=== PATIENT | male | born 1960 | race Caucasian/White ===

== ENCOUNTER 2017-11-25 12:45 | Emergency (ER) | payer OTHER ==
[2017-11-25 12:53] VITALS: BP 135/75; PULSE 82; RESP 18; TEMP 98.5
[2017-11-25] MEDS ORDERED: DIPH,PERTUS(ACELL)TETVAC-LF 0.5 ML VIAL IM ONE (13:19)
[2017-11-25] MEDS ORDERED: HYDROcodone/APAP 5-325MG 1 EACH TAB PO STA (13:20)
[2017-11-25] MEDS ORDERED: LIDOCAINE 1% INJ 10MG/ML (20 ML MDV) SQ ONE (13:23)
--- NOTE | 2017-11-25 13:47 | XR ---
EXAMINATION TYPE: XR finger LT , 3 VIEWS DATE OF EXAM ORDERED: 11/25/2017 HISTORY: Pain. COMPARISON: None. FINDINGS: There is a soft tissue defect and bony defect in the distal aspect of the middle phalanx o f the left long finger. Several small fragments are present in the dorsal aspect adjacent to the PIP joint. IMPRESSION: COMPOUND, COMMINUTED FRACTURES OF THE MIDDLE PHALANX OF THE LEFT LONG FINGER. CODE B: INITIAL ENCOUNTER FOR OPEN FRACTURE TYPE I OR II.
[2017-11-25] MEDS ORDERED: ceFAZolin 1,000 MG VIAL IM STA (14:56)
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
== END 2017-11-25 15:20 | disposition home or self-care (01) ==
LOC: EC 12:45
DX: S62.623B Displaced fracture of middle phalanx of left middle finger, initial encounter for open fracture (principal); S61.213A Laceration without foreign body of left middle finger without damage to nail, initial encounter; F17.200 Nicotine dependence, unspecified, uncomplicated; Z23 Encounter for immunization; Z86.73 Personal history of transient ischemic attack (TIA), and cerebral infarction without residual deficits; W31.2XXA Contact with powered woodworking and forming machines, initial encounter
CPT/HCPCS: 73140; 90715; 99283; 12002; 96372; 90471; J0690; J2001

== ENCOUNTER → 2018-01-05 | Outpatient (CLI) | payer OTHER ==
--- NOTE | 2018-01-05 07:54 | CT ---
EXAMINATION TYPE: CT chest wo con DATE OF EXAM: 01/05/2018 COMPARISON: None HISTORY: COPD CT DLP: 162.[address] of the chest was performed with lung and mediastinal window settings submitted. The la ck of contrast limits evaluation of the vascular, mediastinal and parenchymal structures including th e upper abdomen. LUNGS: The lungs are clear and free of infiltrate. No atelectasis. No pulmonary nodule or mass is de tected. No pleural effusion. Mild upper lobe emphysematous changes noted. Scattered areas of pleural parenchymal scarring. Granuloma left lower lobe. MEDIASTINUM/ADDY: Thoracic aorta is of normal caliber with limited evaluation given lack of contrast . The heart is not enlarged. No evidence for mediastinal mass. No lymph nodes greater than 1cm. UPPER ABDOMEN: Hypoattenuating lesion upper pole left kidney measuring 2.2 cm. OTHER: Splenic granulomas noted. IMPRESSION: 1. Upper lobe emphysematous changes. 2. Probable cyst within the left kidney can be confirmed with ultrasound. 3. Remote granulomatous disease.
== END | disposition home or self-care (01) ==
LOC: RADCTMAIN 06:57
PROVIDERS: ATTEND Internal Medicine Critical Care Medicine
DX: J43.9 Emphysema, unspecified (principal)
CPT/HCPCS: 71250

== ENCOUNTER → 2019-04-29 | Outpatient (CLI) | payer OTHER ==
--- NOTE | 2019-04-29 16:36 | XR ---
EXAMINATION TYPE: XR chest 2V DATE OF EXAM: 04/29/2019 COMPARISON: CT chest 01/05/2018 HISTORY: Short of breath, lung nodules TECHNIQUE: Frontal and lateral views of the chest are obtained. FINDINGS: There is no focal air space opacity, pleural effusion, or pneumothorax seen. The cardiac silhouette size is within normal limits. The osseous structures are intact. Prominent lung volumes consistent with underlying emphysema. Calcified granuloma again noted in the left lower lobe as on pr ior CT. IMPRESSION: No acute cardiopulmonary process.
== END ==
LOC: RADXRMAIN 12:34
PROVIDERS: ATTEND Internal Medicine
DX: R06.02 Shortness of breath (principal)
CPT/HCPCS: 71046

== ENCOUNTER → 2019-05-28 | Outpatient (CLI) | payer OTHER ==
--- NOTE | 2019-05-28 16:50 | CT ---
EXAMINATION TYPE: CT chest w con DATE OF EXAM: 05/28/2019 COMPARISON: Prior chest CT 01/05/2018 HISTORY: Lung nodule CT DLP: 194.1 mGycm Automated exposure control for dose reduction was used. CONTRAST: CT scan of the chest is performed with IV Contrast, patient injected with 100 mL of Isovue 300. FINDINGS: LUNGS: The lungs are grossly clear, there is no concerning parenchymal mass or nodule identified. Th ere are bilateral emphysematous changes especially noted in the upper lobes. Calcified pulmonary nodu le present in the left lower lobe is again noted. There is no pleural effusion or pneumothorax seen. The tracheobronchial tree is patent. MEDIASTINUM: There are no greater than 1 cm hilar or mediastinal lymph nodes. No pericardial effusi on is seen. Calcified left hilar nodes. There are coronary artery calcifications present. AORTA: No additional significant abnormality is seen. OTHER: Scattered calcifications within the spleen. Liver shows low attenuation possibly due to hepat ic steatosis. IMPRESSION: Stable emphysema, old granulomatous disease.
== END | disposition home or self-care (01) ==
LOC: RADCTMAIN 15:41
PROVIDERS: ATTEND Internal Medicine Critical Care Medicine
DX: J43.9 Emphysema, unspecified (principal)
CPT/HCPCS: 71260; Q9967

== ENCOUNTER → 2021-03-16 | Outpatient (CLI) | payer OTHER ==
--- NOTE | 2021-03-16 12:41 | XR ---
EXAMINATION TYPE: XR cervical spine comp DATE OF EXAM: 03/16/2021 COMPARISON: NONE HISTORY: Neck pain TECHNIQUE: Four views are submitted. FINDINGS: The odontoid is intact. There are no compression deformities. The prevertebral soft tissue structur es are within normal limits. There is moderate to severe degenerative disc disease C3-4, C4-5, C5-6 and C6-C7 with anterior hypertrophic spurring. Soft tissue calcifications are noted which likely rela gama atherosclerotic change of the carotid arteries. Multilevel facet arthropathy. IMPRESSION: 1. Multilevel moderate to severe degenerative disc disease and facet arthropathy. Recommend follow-up MRI.
== END | disposition home or self-care (01) ==
LOC: RADXRMAIN 11:59
PROVIDERS: ATTEND Internal Medicine
DX: M50.323 Other cervical disc degeneration at C6-C7 level (principal); M47.812 Spondylosis without myelopathy or radiculopathy, cervical region
CPT/HCPCS: 72050

== ENCOUNTER 2021-04-30 11:29 | Emergency (ER) | payer OTHER ==
[2021-04-30 11:32] VITALS: BP 147/81; PULSE 83; RESP 20; TEMP 98
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
== END 2021-04-30 12:43 | disposition home or self-care (01) ==
LOC: EC 11:29
DX: J06.9 Acute upper respiratory infection, unspecified (principal); F17.200 Nicotine dependence, unspecified, uncomplicated; Z86.73 Personal history of transient ischemic attack (TIA), and cerebral infarction without residual deficits; Z72.89 Other problems related to lifestyle
CPT/HCPCS: 87635; 99283

== ENCOUNTER 2021-06-08 09:44 | Day surgery (SDC) | payer OTHER ==
[2021-04-30 14:26] VITALS: BMI 22.4
[~2021-06-08 09:44] MED LIST: LACTATED RINGERS 1,000 ML IV SCH; LIDOCAINE 1% (10MG/ML) FOR IV START INTRADERMA PRN
[2021-06-08 10:29] VITALS: TEMP 97.8
[2021-06-08] MEDS ORDERED: PROPOFOL 10 MG/ML 20 ML VIAL IV ONE (11:08)
--- NOTE | 2021-06-08 11:33 | P.PCN ---
Date of Procedure: 06/08/21 Procedure(s) Performed: BRIEF HISTORY: Patient is a 60-year-old pleasant white male scheduled for an elective colonoscopy as a part of screening for colorectal neoplasia. Last colonoscopy was 7 years ago. PROCEDURE PERFORMED: Colonoscopy with snare polypectomy. PREOPERATIVE DIAGNOSIS:.Screening for colon cancer IV sedation per Anesthesia. PROCEDURE: After informed consent was obtained, the patient, was brought into the endoscopy unit. IV sedation was administered by Anesthesia under continuous monitoring. Digital rectal examination was normal. Initially the Olympus CF-160 flexible video colonoscope was then inserted in the rectum, gradually advanced into the cecum without any difficulty. Careful examination was performed as the scope was gradually being withdrawn. Ileocecal valve and the appendiceal orifice were visualized and appeared normal. Prep was excellent. Mucosa of the cecum, a ppeared normal. In the ascending colon there were 3 polyps measuring 7 mm, 8 mm and 3 mm REMOVED by snare polypectomy. Rest of the ascending colon, transverse colon, descending colon, appeared normal. In the sigmoid colon there was a 1 cm polyp removed by snare polypectomy and in the rectum there was a 5 mm polyp removed by snare polypectomy. Rest of the sigmoid colon, and rectum appeared normal. Retroflexion was performed in the rectum and no lesions were seen. The patient tolerated the procedure well. IMPRESSION: 3 mm 2 and 7 mm, 8 mm ascending colon polyp status post polypectomy 1 cm sigmoid; polyp status post snare polypectomy 5 mm rectal polyp status post snare polypectomy RECOMMENDATIONS: Findings of this examination were discussed with the patient [as well as his family. He was advised to follow with the biopsy results. If the biopsy results can have a repeat colonoscopy in 3 years.
[2021-06-08 11:45] VITALS: RESP 16
[2021-06-08 11:57] VITALS: BP 121/78; PULSE 84
== END 2021-06-08 12:22 | disposition home or self-care (01) ==
LOC: ORWHC2ENDO 09:44
PROVIDERS: ATTEND Internal Medicine Gastroenterology
DX: Z12.11 Encounter for screening for malignant neoplasm of colon (principal); D12.2 Benign neoplasm of ascending colon; D12.5 Benign neoplasm of sigmoid colon; D12.8 Benign neoplasm of rectum; J44.9 Chronic obstructive pulmonary disease, unspecified; F17.200 Nicotine dependence, unspecified, uncomplicated; Z86.73 Personal history of transient ischemic attack (TIA), and cerebral infarction without residual deficits; M19.90 Unspecified osteoarthritis, unspecified site; Z79.899 Other long term (current) drug therapy; Z97.2 Presence of dental prosthetic device (complete) (partial)
CPT/HCPCS: 88305; 45385; J2704

== ENCOUNTER → 2021-10-15 | Outpatient (CLI) | payer OTHER ==
--- NOTE | 2021-10-15 12:17 | CT ---
EXAMINATION TYPE: CT chest w con DATE OF EXAM: 10/15/2021 COMPARISON: 05/28/2019 HISTORY: 61-year-old male shortness of breath, R91.8, Previous abnormal exam. COREY TECHNIQUE: Contiguous axial scanning of the chest after the administration of 70 ML mL of Isovue 300. Coronal/sagittal reconstructions performed. CT DLP: 278.2mGycm. Automatic exposure control utilized for a dose reduction. FINDINGS: Heart normal size with trace pericardial effusion. Three-vessel coronary artery calcifications are pr esent. Mild atherosclerotic arch calcifications with conventional branching anatomy. There is been the interval development of a large right hilar/infrahilar mass, mostly located within the right lower lobe but extending anteriorly across the major fissure. This encases the distal right main pulmonary artery as well as the lobar and proximal segmental branches. There is also encasement and narrowing of the right inferior pulmonic vein and encasement of the right lower lobe bronchi as well as the right middle lobe and proximal segmental bronchi. Right hilar/infrahilar mass measures up to 8.1 cm, axial image 37. Within the right lower lobe, extends posteriorly to the posterior pleura and we are unable to differe ntiate mass from consolidation and atelectasis. Heterogeneous areas of fluid and air are present suggesting some internal necrosis. Surrounding groundglass opacity within the right lower lobe and some nodularity, likely post obstruct ranjan changes. There is a small right pleural effusion. Contiguous right hilar adenopathy measuring 3.9 cm. Right suprahilar adenopathy measuring 3.9 cm. Subcarinal adenopathy measuring 2.4 cm. Lower right paratracheal nodes measuring up to 1.6 cm. Left hilar lymph node measuring 1.5 cm is new. Some calcified lymph nodes left hilum compatible with prior granulomatous disease. Cavitary lesion posterior left upper lobe measuring 2.8 cm with some internal soft tissue nodularity measuring 1.2 cm. Adjacent 8 mm satellite nodule, axial and 25. New 1.2 cm oval nodule right middle lobe. Background COPD with moderate emphysema. Multiple calcified granulomas within the spleen. Benign 1.6 cm cortical cyst left kidney. Bones: No osseous destructive process seen. IMPRESSION: 1. New right hilar/infrahilar mass measuring at least 8.1 cm encasing multiple right hilar structures and containing areas of central necrosis. Abnormal opacity extends inferiorly and posteriorly to the posterior pleura of the right lower lobe and we are unable to differentiate postobstructive airspace disease/atelectasis from the mass. Associated small right pleural effusion. 2. Right hilar lymphadenopathy measuring up to 3.9 cm. Additional subcarinal and lower right paratrac heal lymphadenopathy. 1.2 cm right middle lobe nodule, possibly a metastatic nodule. 3. Cavitary lesion measuring 2.8 cm posterior left lower lobe is suspicious as well, possible synchro nous primary. 8 mm satellite nodule and 1.5 cm left hilar lymph node.
== END | disposition home or self-care (01) ==
LOC: RADCTMAIN 08:10
PROVIDERS: ATTEND Internal Medicine
DX: R91.8 Other nonspecific abnormal finding of lung field (principal); J98.11 Atelectasis
CPT/HCPCS: 71260; Q9967

== ENCOUNTER 2021-11-04 12:44 | Day surgery (SDC) | payer OTHER ==
[2021-11-03 13:02] VITALS: BMI 22.1
[~2021-11-04 12:44] MED LIST changes: +ALBUTEROL NEB (CONC) 2.5 MG/0.5 ML INHALATION ONE; -LACTATED RINGERS 1,000 ML IV SCH; -LIDOCAINE 1% (10MG/ML) FOR IV START INTRADERMA PRN; +LIDOCAINE 2% (PF) 20 MG/ML 5 ML VIAL INHALATION ONE; +LIDOCAINE VISCOUS 300 MG/15 ML CUP MUCOUS MEM ONE; +SODIUM CHLORIDE 0.9% 1,000 ML IV SCH
[2021-11-04] MEDS ORDERED: ONDANSETRON 4 MG/2 ML VIAL ONE (13:12)
[2021-11-04] MEDS ORDERED: DEXAMETHASONE SOD PHOSPHATE 4 MG/ML 1 ML VIAL IVP ONE (13:18)
[2021-11-04] MEDS ORDERED: LACTATED RINGERS 1,000 ML IV ONE (13:25)
[2021-11-04] MEDS ORDERED: LIDOCAINE 4% LTA KIT (4 ML) TOPICAL ONE (14:12)
[2021-11-04] MEDS ORDERED: MIDAZOLAM 2 MG/2 ML VIAL ONE (14:12)
[2021-11-04] MEDS ORDERED: PROPOFOL 10 MG/ML 20 ML VIAL IV ONE (14:12)
[2021-11-04] MEDS ORDERED: GLYCOPYRROLATE 0.2 MG/ML 2 ML VIAL ONE (14:12)
[2021-11-04] MEDS ORDERED: fentaNYL (PF) 50 MCG/ML 2 ML AMP ONE (14:12)
[2021-11-04] MEDS ORDERED: SUCCINYLCHOLINE CHLORIDE 200 MG/10 ML VIAL IV ONE (14:12)
[2021-11-04] MEDS ORDERED: LIDOCAINE 2% INJ 20 MG/ML (2 ML VIAL) ONE (14:12)
[2021-11-04] MEDS ORDERED: NEOSTIGMINE 1 MG/ML 10 ML VIAL ONE (14:12)
--- NOTE | 2021-11-04 15:13 | CT ---
EXAMINATION TYPE: CT Chest miracle Carroll Protocol DATE OF EXAM: 11/04/2021 COMPARISON: 10/15/2021 HISTORY: Pulmonary nodules/mass. CT DLP: 617 mGycm, Automated exposure control for dose reduction was used. CONTRAST: Performed injected with 0 mL of Isovue 300. TECHNIQUE: Axial images were obtained at 5 mm thick sections. Reconstructed images are reviewed on [employer] computer in the coronal plane. FINDINGS: Portion of the thyroid visualized is normal. There appears to be a cavitary lesion in the posterior left upper lung field. Couple of small nodules within the periphery of the superior segment right lower lobe. A large masses in the as ago esophageal recess and medial right lower lobe. Infiltrate or consolidation is peripher al to the mass along the posterior aspect. There is narrowing of the right lower lobe bronchus Small right pleural effusion is present. A lymph node may be anterior to the distal esophagus. May be an enlarged subcarinal lymph node. Multiple small pretracheal lymph nodes are present. The as cending aorta diameter at the level of the main pulmonary artery is 3.2 cm. The main pulmonary arter y diameter at the bifurcation is 2.[address] sections are obtained through the upper abdomen. Abdomen is essentially unremarkable. IMPRESSIONS: 1. CT performed for navigation assistance. 2. Right lower lobe medial lung mass, small right pleural effusion. Some peripheral consolidation is present posteriorly. 3. Possible large subcarinal lymph node.
[2021-11-04] MEDS ORDERED: SODIUM CHLORIDE 0.9% 500 ML 500 ML IV ONE (15:22)
--- NOTE | 2021-11-04 15:24 | P.PCN ---
Date of Procedure: 11/04/21 Operative Findings: Date of Procedure: 11/04/21 Operative Findings: Preoperative Diagnosis: 1 right upper lobe mass 2 mediastinal lymphadenopathy, precarinal Postoperative Diagnosis: 1 right lower lobe mass, 2 mediastinal lymphadenopathy Procedure(s) Performed: 1 flexible bronchoscopy, airway inspection 2 endoscopic ultrasound (EBUS) 3 transbronchial needle aspirate of station of 7 and 10 R lymph nodes 4 Navigation bronchoscopy and TBBX of the RLL mass and BAL of the RLL Surgeon: Luna Blanchard MD Continuing Education Specialist #1: Jazmin Lucia NP Continuing Education Specialist #2: Sundar Veloz MD Estimated Blood Loss (ml): 0 Pathology: Transbronchial needle aspirate of 7 and 10 R lymph nodes, transbronchial biopsies of the RLL mass and BAL of the RLL Condition: stable Disposition: same day Operative Findings: The patient had a preoperative computed tomography scan of the chest using the Veran protocol. The CAT scan images were reviewed. The right lower lobe opacity was identified it was mapped appropriately. The CAT scan images are uploaded into a USB and then into the [employer] tower. After obtaining the consent the patient was taken to the OR suite he was intubated and put on MV by anesthesia then the scope was advanced to the ET tube until the Trachea was seen and it was normal and then the elisha appears normal then the scope advanced to the left main and ANNE LB1-LB3 were seen and no endobronchial lesions were seen then the scope advanced to the lingula and the LB4 and LB5 were seen and no endobronchial lesions were seen the scope retracted and advanced to the left lower lobes LB6 to LB12 were seen one by one and no endobronchial lesions, then the scope was retracted back to the elisha and advanced to the Right main and RUL RB1 and RB2 and RB3 were seen one by one and no endobronchial lesions were seen the scope then retracted and advanced to the BI and immediately a is a component of extrinsic compression was noted in the distal bronchus intermedius with significant narrowing of the airway. The bifurcation right middle lobe with a right lower lobe was noted. The bronchoscope was moved to the right middle lobe and the RML RB4 and RB5 were seen and no endobronchial lesions were seen then it was retracted and advanced to the RLL and right lower lobe bronchus was anatomically distorted. The orifice of a superior segment was significantly narrowed. The orifice of the lateral segments were irregular and narrowed and I was able to identify the including the medial basilar, anterior, lateral and posterior segments. Note that the airways are quite abnormal and there was significant amount of extrinsic compression and possibly some endobronchial tumor involvement. Most of the abdominal distention was at the level of the superior segment of the right lower lobe. Then EBUS was used and the lymph nodes were examined. Direct measurement of the mediastinal lymph nodes reviewed and the patient has a large subcarinal lymph node station 7 measuring 1.8 x 1.3 cm in size. There was another large lymph node in the level of station 10 R measuring 2.2 x 1.55.. On the direct EBUS guidance, transbronchial needle aspirate of the station 7 and station 10 R lymph node was done and a total of 5 passes were obtained and the samples were evaluated by pathology. Rest of the mediastinal evaluation using the EBUS revealed no significant lymphadenopathy and all of the lymph nodes were identified less than 5 mm in size. Following that, the EBUS bronchoscope WAS COMPLETED AND THE BRONCHOSCOPE WAS REMOVED. Navigation bronchoscopy was performed. The main elisha and the secondary elisha on the left were used as the reference points and appropriate calibration was done. Following that, using a navigation guidance , the bronchoscope was advanced to the right lowe lobe suprior and posterior segment and various transbronchial biopsies were obtained. Note that the procedure itself was difficult knowing that there was significant amount of anatomic distortion of the airways were essentially narrowed and that essentially prevented advancement of the forceps to reach the distal areas of the tumor. Multiple biopsies were obtained using this. In the posterior segment of the right lower lobe. Minimal amount of endobronchial lesion bleeding was encountered that subsided without any intervention. Therapeutic airway suctioning was done. The bronchioloalveolar lavage of the right lower lobe was also done with a total of an assistive fluid was infused and 25 mL was aspirated. The fluid was sent for cytology. Bronchoscope was removed. Patient was extubated and transfered to recovery in stable condition. Chest x-rays to follow. If clinically stable, the patient will be discharged home once cleared by anesthesia.
[2021-11-04 15:40] VITALS: TEMP 97
--- NOTE | 2021-11-04 15:48 | XR ---
EXAMINATION TYPE: XR chest 1V DATE OF EXAM: 11/04/2021 COMPARISON: 08/26/2021 HISTORY: Post biopsy TECHNIQUE: Single frontal view of the chest is obtained. FINDINGS: Lobulated area of consolidation along the right heart border is seen. There is a coarsened interstitium with underlying COPD. Tiny right pleural effusion. No sizable pneumothorax. Heart size normal. Tiny granuloma left upper lobe suspected. IMPRESSION: 1. COPD with chronic interstitial lung disease and loculated area of consolidation or mass along the right heart border. 2. No sizable pneumothorax.
[2021-11-04 16:25] VITALS: RESP 20
[2021-11-04 16:46] VITALS: BP 109/65; PULSE 68
[2021-11-04 23:51] LABS: Appearance,BF Bloody
== END 2021-11-04 17:05 | disposition home or self-care (01) ==
LOC: ORWHC2ENDO 12:44
PROVIDERS: ATTEND Internal Medicine Critical Care Medicine
DX: C34.31 Malignant neoplasm of lower lobe, right bronchus or lung (principal); R59.0 Localized enlarged lymph nodes; J90 Pleural effusion, not elsewhere classified; J43.9 Emphysema, unspecified; E78.2 Mixed hyperlipidemia; I10 Essential (primary) hypertension; I73.9 Peripheral vascular disease, unspecified; Z82.49 Family history of ischemic heart disease and other diseases of the circulatory system; Z86.73 Personal history of transient ischemic attack (TIA), and cerebral infarction without residual deficits; F17.200 Nicotine dependence, unspecified, uncomplicated; Z79.899 Other long term (current) drug therapy
CPT/HCPCS: 87798 ×3; 87496; 87498; 87529; 88108; 88305; 88173; 89050; 88342; 87252; 87502; 87634; 88341; 87070; 87205; 87116; 87102; 87206; 71045; 71250; 31629; 31625; 31624; 31627; 31652; J2250; J0330; J1100; J2710; J2405; J3010; J2704; J2001

== ENCOUNTER 2021-11-06 09:18 | Emergency (ER) | payer OTHER ==
[2021-11-06 09:23] VITALS: RESP 18
[2021-11-06] MEDS ORDERED: SODIUM CHLORIDE 0.9% 1,000 ML IV STA (09:48)
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
[2021-11-06 10:23] LABS: Basophils # (A) 0.1 k/uL (0-0.2); Basophils % (A) 1 %; Eosinophils # (A) 0.3 k/uL (0-0.7); Eosinophils % (A) 2 %; HCT 39.4 % (39.0-53.0); HGB 12.5 gm/dL (13.0-17.5); Lymphocytes % (A) 15 %; MCH 28.3 pg (25.0-35.0); MCHC 31.8 g/dL (31.0-37.0); Mean Platelet Volume 8.7; Monocytes # (A) 0.8 k/uL (0-1.0); Monocytes % (A) 6 %; Neutrophils # (A) 10.4 k/uL (1.3-7.7); Neutrophils % (A) 76 %; Platelet Count 556 k/uL (150-450); RBC 4.43 m/uL (4.30-5.90); RDW 13.9 % (11.5-15.5); WBC 13.6 k/uL (3.8-10.6)
[2021-11-06 10:24] LABS: African American GFR (CKD) >90 (>60 ml/min/1.73 sqM); Anion Gap 10 mmol/L; Blood Urea Nitrogen 15 mg/dL (9-20); Calcium 9.3 mg/dL (8.4-10.2); Carbon Dioxide 25 mmol/L (22-30); Chloride 99 mmol/L (98-107); Creatine Kinase 54 U/L (55-170); Glucose 100 mg/dL (74-99); Non-African American GFR(CKD) 78 (>60 ml/min/1.73 sqM); Potassium 4.9 mmol/L (3.5-5.1); Sodium 134 mmol/L (137-145)
[2021-11-06 11:50] VITALS: BP 126/64; PULSE 74; TEMP 98.4
== END 2021-11-06 11:52 | disposition home or self-care (01) ==
LOC: EC 09:18
DX: M79.10 Myalgia, unspecified site (principal); Z20.822 Contact with and (suspected) exposure to COVID-19; Z87.891 Personal history of nicotine dependence
CPT/HCPCS: 36415; 80048; 82550; 85025; 87636; 93005; 96360; 99283

== ENCOUNTER → 2021-11-18 | Outpatient (CLI) | payer OTHER ==
--- NOTE | 2021-11-19 05:47 | MR ---
EXAMINATION TYPE: MR brain wo/w con DATE OF EXAM: 11/18/2021 COMPARISON: None HISTORY: Lung cancer, evaluate for metastatic disease. CONTRAST: Standard multiplanar, multisequence MRI departmental protocol images were obtained without contrast a nd with 6 mL intravenous Gadavist gadolinium contrast. Diffusion images show no evidence of an acute infarct. There is cerebral cortical atrophy. There is n o mass effect nor midline shift. No evidence of intracranial hemorrhage. There are numerous foci of i ncreased signal in the periventricular white matter that measure up to 1 cm. Total numbers more than 30. There is some coalescent increased signal around the frontal horn left lateral ventricle. The bra instem is intact. Cerebellum is intact. There is thinning of the corpus callosum. Sella turcica is in tact. The precontrast images show no pathologic enhancement. There is normal enhancement of the venous sinu ses. Meningeal enhancement appears normal. IMPRESSION: There is cerebral atrophy and extensive white matter changes likely related to microvascular ischemia . Demyelinating disease also possible. No evidence of intracranial metastatic disease.
== END | disposition home or self-care (01) ==
LOC: RADMRIMAIN 18:54
PROVIDERS: ATTEND Internal Medicine
DX: C34.31 Malignant neoplasm of lower lobe, right bronchus or lung (principal); G31.9 Degenerative disease of nervous system, unspecified
CPT/HCPCS: 70553; A9585

== ENCOUNTER → 2021-11-19 | Outpatient (CLI) | payer OTHER ==
--- NOTE | 2021-11-21 13:10 | PE ---
EXAMINATION TYPE: PET CT fusion skull to thigh DATE OF EXAM: 11/19/2021 CLINICAL INDICATION:Male, 61 years old with history of R91.8 lung mass; TECHNIQUE: Following the intravenous administration of 11.73 mCi of F-18 FDG, whole body images are performed from the skull base to the midthigh. Images are reviewed on the computer in the coronal, axial, and sagittal planes. Reconstructed rotating images are created on independent workstation and reviewed on the computer. A non-contrast CT is performed in conjunction with the PET scan. Glucose level 116 mg/dL COMPARISON: CT 10/27/2021, PET/CT None, FINDINGS: Mediastinal SUV maximum is 1.5. Hepatic parenchyma SUV maximum is 2.1. SKULL BASE AND NECK: No suspicious FDG activity. CHEST, MEDIASTINUM, AND HILAR REGION: Areas of increased FDG activity examples: * Right pulmonary hilum maximum SUV 8.4 measurements are slightly difficult given noncontrast techni que measuring 2.8 x 2.5 cm. * Subcarinal lymph node max SUV 8.9, measuring 2.4 x 2.0 cm. * Left inferior pulmonary hilum SUV 4.5, measuring 8 mm in short axis. * Left upper lobe pulmonary nodule with cavitation along part of the solid portion measuring 11 mm M ax SUV 4.3. * Right lower lobe conglomerate consolidation which is difficult to evaluate exact mass dimensions g iven lack of IV contrast with max SUV 14.0 of the lower lobe. * Left supraclavicular lymph node max SUV 5.0 measuring 9 mm in short axis. LEFT UPPER EXTREMITY: Focus of radiotracer up take along the arm near the subcutaneous tissues max SUV 5.9 ABDOMEN AND PELVIS: Upper abdominal lymph nodes with increased FDG activity including: * Just anterior to the aorta under the diaphragm with Max SUV 6.3 measuring 13 mm * Posterior to the body of the pancreas max SUV 7.2 measuring 11 mm. Indeterminate Focus of increased FDG uptake just anterior spine at L3 max SUV 3.0. A portacaval lymph node is present but does not demonstrate increased FDG activity measuring 11 mm an d Max SUV 2.0. OSSEOUS STRUCTURES: Focus of increased activity within the L5 vertebral body superior endplate with m ax SUV 6.9. OTHER CT: Atherosclerosis at the carotid bifurcations. There is coronary artery atherosclerosis. Scat tered calcified granulomas in the spleen. Left renal cyst. Atherosclerosis of the arterial vasculatur e. Mild multilevel disc degeneration changes throughout the spine. IMPRESSION: 1. Findings of a right lower lobe mass with metastatic disease to the mediastinum, left supraclavic ular lymph node as well as lymph nodes in the upper abdomen. 2. Indeterminate focus within the L5 vertebral body along the inferior endplate and anterior to the L3 vertebral body. These may be on a degenerative basis. Attention on follow-up imaging. 3. Left upper extremity focus of FDG uptake uptake along the anterior arm, this may be secondary to injection, correlate with left arm skin examination an history of injection.
== END | disposition home or self-care (01) ==
LOC: RADXRMAIN 07:54
PROVIDERS: ATTEND Internal Medicine Critical Care Medicine
DX: C38.3 Malignant neoplasm of mediastinum, part unspecified (principal); R91.8 Other nonspecific abnormal finding of lung field
CPT/HCPCS: 78815; A9552

== ENCOUNTER 2021-12-18 20:46 | Emergency (ER) | payer OTHER ==
[2021-12-18 20:58] VITALS: BP 119/84; PULSE 107; RESP 22; TEMP 97.9
[2021-12-18] MEDS ORDERED: MAG HYDROX/AL HYDROX/SIMETH 30 ML, HYOSCYAMINE ELIXIR 10 ML, LIDOCAINE VISCOUS 2% 10 ML PO STA ×3 (22:54)
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
[2021-12-18] MEDS ORDERED: SODIUM CHLORIDE 0.9% 1,000 ML IV STA (23:45)
[2021-12-19 00:50] LABS: Basophils # (A) 0.1 k/uL (0-0.2); Basophils % (A) 1 %; Eosinophils # (A) 0.2 k/uL (0-0.7); Eosinophils % (A) 2 %; HCT 41.9 % (39.0-53.0); HGB 13.2 gm/dL (13.0-17.5); Lymphocytes # (A) 1.1 k/uL (1.0-4.8); Lymphocytes % (A) 11 %; MCH 27.8 pg (25.0-35.0); MCHC 31.5 g/dL (31.0-37.0); MCV 88.4 fL (80.0-100.0); Mean Platelet Volume 7.3; Monocytes # (A) 0.6 k/uL (0-1.0); Monocytes % (A) 5 %; Neutrophils # (A) 8.2 k/uL (1.3-7.7); Neutrophils % (A) 79 %; Platelet Count 511 k/uL (150-450); RBC 4.75 m/uL (4.30-5.90); RDW 15.5 % (11.5-15.5); WBC 10.3 k/uL (3.8-10.6)
[2021-12-19 01:07] LABS: African American GFR (CKD) >90 (>60 ml/min/1.73 sqM); Anion Gap 13 mmol/L; Blood Urea Nitrogen 18 mg/dL (9-20); Calcium 9.8 mg/dL (8.4-10.2); Carbon Dioxide 23 mmol/L (22-30); Chloride 97 mmol/L (98-107); Glucose 98 mg/dL (74-99); Non-African American GFR(CKD) >90 (>60 ml/min/1.73 sqM); Potassium 4.5 mmol/L (3.5-5.1); Sodium 133 mmol/L (137-145)
[2021-12-19 01:11] LABS: Appearance,Urine Cloudy (Clear); Bacteria,Urine Rare /hpf; Bilirubin,Urine Negative (Negative); Blood,Urine Negative (Negative); Color,Urine Yellow; Glucose,Urine (UA) Negative (Negative); Ketones,Urine 1+ (Negative); Leukocyte Esterase,Urine Negative (Negative); Mucus,Urine Many /hpf; Nitrite,Urine Negative (Negative); PH, Urine 5.5 (5.0-8.0); Protein,Urine 1+ (Negative); RBC,Urine 3 /hpf (0-5); Specific Gravity,Urine 1.027 (1.001-1.035); Squamous Epithelial Cell,Urine <1 /hpf (0-4); WBC,Urine 6 /hpf (0-5)
== END 2021-12-19 02:56 | disposition home or self-care (01) ==
LOC: EC 20:46
DX: K20.90 Esophagitis, unspecified without bleeding (principal); Z86.73 Personal history of transient ischemic attack (TIA), and cerebral infarction without residual deficits; F17.200 Nicotine dependence, unspecified, uncomplicated
CPT/HCPCS: 36415; 80048; 81001; 83735; 85025; 96360; 96361; 99283

== ENCOUNTER → 2022-02-07 | Outpatient (CLI) | payer OTHER | END | disposition home or self-care (01) | LOC: RADMRIMAIN 19:55 | PROVIDERS: ATTEND Internal Medicine | DX: Z53.9 Procedure and treatment not carried out, unspecified reason (principal) ==

== ENCOUNTER 2022-03-08 14:35 | Emergency (ER) | payer OTHER ==
[2022-03-08] MEDS ORDERED: SODIUM CHLORIDE 0.9% 500 ML 500 ML IV STA (15:40)
[2022-03-08] MEDS ORDERED: MORPHINE SULFATE 4 MG/ML SYRINGE IV STA (15:40)
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
[2022-03-08 16:48] LABS: Anisocytosis Slight; Basophils % (A) 0 %; Eosinophils % (A) 1 %; HCT 38.7 % (39.0-53.0); HGB 13.3 gm/dL (13.0-17.5); Lymphocytes # (A) 0.6 k/uL (1.0-4.8); Lymphocytes % (A) 12 %; MCH 30.6 pg (25.0-35.0); MCHC 34.4 g/dL (31.0-37.0); Mean Platelet Volume 8.6; Monocytes # (A) 0.4 k/uL (0-1.0); Monocytes % (A) 8 %; Neutrophils # (A) 3.7 k/uL (1.3-7.7); Neutrophils % (A) 75 %; Platelet Count 151 k/uL (150-450); RBC 4.35 m/uL (4.30-5.90); RDW 16.5 % (11.5-15.5); WBC 4.9 k/uL (3.8-10.6)
[2022-03-08 16:58] LABS: ALT 15 U/L (4-49); AST 34 U/L (17-59); African American GFR (CKD) >90 (>60 ml/min/1.73 sqM); Albumin 3.8 g/dL (3.5-5.0); Alkaline Phosphatase 89 U/L (38-126); Amylase 54 U/L (30-110); Anion Gap 8 mmol/L; Blood Urea Nitrogen 16 mg/dL (9-20); Calcium 8.4 mg/dL (8.4-10.2); Carbon Dioxide 24 mmol/L (22-30); Chloride 97 mmol/L (98-107); Glucose 99 mg/dL (74-99); Lipase 121 U/L (23-300); Non-African American GFR(CKD) >90 (>60 ml/min/1.73 sqM); Potassium 4.3 mmol/L (3.5-5.1); Sodium 129 mmol/L (137-145); Total Bilirubin 0.7 mg/dL (0.2-1.3)
--- NOTE | 2022-03-08 17:16 | XR ---
EXAMINATION TYPE: XR chest 2V DATE OF EXAM: 03/08/2022 5:04 PM COMPARISON: Chest radiographs from 10/27/2021 TECHNIQUE: XR chest 2V Frontal and lateral views of the chest. CLINICAL INDICATION:Male, 61 years old with history of abdominal pain; FINDINGS: Lungs/Pleura: Persistent hazy opacities within the right medial lung base consistent with known malig singh. There is small right pleural effusion. There is no evidence of or pneumothorax. Pulmonary vascularity: Unremarkable. Heart/mediastinum: Cardiomediastinal silhouette is partially obscured due to overlying and adjacent o pacities. Musculoskeletal: No acute osseous pathology. IMPRESSION: Small right pleural effusion and right medial airspace opacities likely related to known malignancy. Right pleural effusion is new from 10/27/2021
[2022-03-08 17:17] LABS: INR 0.9 (<1.2); Partial Thromboplastin Time 21.6 sec (22.0-30.0); Prothrombin Time 10.1 sec (9.0-12.0)
[2022-03-08 17:33] LABS: Appearance,Urine Clear (Clear); Bacteria,Urine Rare /hpf; Bilirubin,Urine Negative (Negative); Blood,Urine Trace (Negative); Color,Urine Yellow; Glucose,Urine (UA) Negative (Negative); Ketones,Urine Negative (Negative); Leukocyte Esterase,Urine Negative (Negative); Mucus,Urine Occasional /hpf; Nitrite,Urine Negative (Negative); PH, Urine 6.5 (5.0-8.0); Protein,Urine Trace (Negative); RBC,Urine 5 /hpf (0-5); Specific Gravity,Urine 1.024 (1.001-1.035); Urobilinogen,Urine <2.0 mg/dL (<2.0); WBC,Urine 2 /hpf (0-5)
[2022-03-08 19:12] VITALS: BP 148/80; PULSE 67; RESP 18; TEMP 99
== END 2022-03-08 19:12 | disposition home or self-care (01) ==
LOC: EC 14:35
DX: R33.9 Retention of urine, unspecified (principal); G45.9 Transient cerebral ischemic attack, unspecified; F17.200 Nicotine dependence, unspecified, uncomplicated; Z85.118 Personal history of other malignant neoplasm of bronchus and lung; Z20.822 Contact with and (suspected) exposure to COVID-19
CPT/HCPCS: 99284; 96374; 96361 ×2; 51798; 36415; 80053; 82150; 83605; 83690; 85025; 85610; 85730; 81001; 87502; 87635; 71046; 51702; J2270

== ENCOUNTER → 2022-03-25 | Outpatient (CLI) | payer OTHER ==
[2022-03-25 09:44] LABS: African American GFR (CKD) >90 (>60 ml/min/1.73 sqM); Blood Urea Nitrogen 14 mg/dL (9-20); Non-African American GFR(CKD) >90 (>60 ml/min/1.73 sqM)
--- NOTE | 2022-03-25 13:17 | CT ---
EXAMINATION: CT CHEST, ABDOMEN AND PELVIS WITH IV CONTRAST DATE OF EXAMINATION: 09/23/2021. COMPARISON: CT on 11/19/2021.. INDICATION: Follow-up for lung cancer. PROCEDURE: Axial CT of the chest, abdomen and pelvis was performed following the intravenous adminis tration of 70 ml Isovue 300. Coronal and sagittal reformats were performed. CT dose lowering techniq ues were used, to include: automated exposure control, adjustment for patient size, and/or use of ite rative reconstruction. FINDINGS: CHEST: Mediastinum and Dejah: There is a 2.4 x 2.8 cm lymph node within the right suprahilar region which is likely very similar to the prior PET/CT, however somewhat limited in evaluation due to the lack of in travenous contrast on the PET/CT study. Several calcified left hilar lymph nodes. No additional signi ficant adenopathy is seen within the mediastinal or hilar regions at this time. Compared to the previ ous hyper metabolic adenopathy within the subcarinal region and bilateral hilar regions. There is sung e patchy soft tissue density also otherwise noted within the right hilar region. Pleural and Pericardial spaces: There is a [id number] right pleural effusion. Cardiovascular: There is mild vascular calcification throughout the thoracic ureter without evidence of aneurysmal dilation or dissection. There is mild to moderate patchy coronary artery calcifications . Pulmonary Artery: Several segmental filling defects within the right lower lobe pulmonary artery comp atible with pulmonary embolism. Lung Parenchyma and Airways: There is mild diffuse centrilobular emphysema. There is a partially cavi tating mass within the right infrahilar region with the largest soft tissue density just inferior to the cavitary region measuring up to 3.5 x 5.1 cm in diameter. This previously had no cavitary compone nt and the estimated largest soft tissue region measuring approximately 8.1 x 7.9 cm in diameter. The re is a 1.6 cm cavitary nodule in the left upper lobe on series or image 21. This previously measured approximately 2.5 cm in diameter. Left lung otherwise appears clear. ABDOMEN: Liver and Biliary system: Normal. Adrenal glands: Normal. Kidneys and ureters: Normal. Spleen: Normal. Pancreas: Normal. Gallbladder: Normal. Lymph nodes, Peritoneum and mesentery: There are previous acing hypermetabolic lymph nodes within th e upper retroperitoneum that are not clearly identified on the current study is being enlarged at thi s time. Gastrointestinal tract: There are no dilated loops of bowel or free intraperitoneal air. . There is no evidence of appendicitis. Aorta/IVC: Significant vascular constipation throughout the abdominal aorta without evidence of ane urysmal dilation or dissection.. IVC normal. Abdominal wall: Normal. PELVIS: Fluid: There is no free fluid in the pelvis. Lymph Nodes: There is no pelvic or inguinal lymphadenopathy.. Urinary bladder: Normal. BONES: There is a large lytic lesion within the L5 vertebral body measuring approximately 3.6 cm in diameter. There appeared to be a small hypermetabolic focus in this region on the previous examinatio n as it appears significantly larger on the current study. There is an additional lytic lesion in the L3 vertebral body measuring approximately 1.2 cm in diameter and appears new since the previous exam ination.. ADDITIONAL SIGNIFICANT FINDINGS: None. IMPRESSION: 1. Small right lower lobe pulmonary emboli. 2. Likely decreasing adenopathy within the mediastinum and decreased size of the large right infrahil ar mass from the previous examination, however there is some new cavitation. 3. Minimal decrease in size appears to be a cavitary lesion within the left lung described above. 4. Emphysema. 5. New and enlarging lytic lesions within the L3 and L5 vertebral bodies as described above. 6. [id number] right pleural effusion. 7. Coronary artery calcifications. 8. Evidence of prior granulomatous disease. CRITICAL RESULTS NOTIFICATION: Results were called to Dr. Porras at 11:15 AM nonstandard time on .
== END | disposition home or self-care (01) ==
LOC: RADCTMAIN 08:46
PROVIDERS: ATTEND Internal Medicine
DX: C34.31 Malignant neoplasm of lower lobe, right bronchus or lung (principal); I26.99 Other pulmonary embolism without acute cor pulmonale; J90 Pleural effusion, not elsewhere classified; J43.9 Emphysema, unspecified; I25.10 Atherosclerotic heart disease of native coronary artery without angina pectoris
CPT/HCPCS: 82565; 84520; 71260; 74177; 36415; Q9967

== ENCOUNTER → 2022-06-27 | Outpatient (CLI) | payer OTHER ==
[2022-06-27 10:00] LABS: African American GFR (CKD) >90 (>60 ml/min/1.73 sqM); Blood Urea Nitrogen 16 mg/dL (9-20); Non-African American GFR(CKD) 78 (>60 ml/min/1.73 sqM)
--- NOTE | 2022-06-27 12:08 | CT ---
EXAMINATION TYPE: CT ChestAbdPelvis w con DATE OF EXAM: 06/27/2022 COMPARISON: 03/25/2022, 11/19/2021 HISTORY: 61-year-old male C34.31, follow up lung CA right lower lobe TECHNIQUE: Contiguous axial scanning of the chest, abdomen, and pelvis performed with IV Contrast, pa tient injected with 70 mL of Isovue 300. Delayed images through the kidneys were obtained. Coronal/sa gittal reconstructions performed. CT DLP: 517.1 mGycm Automated exposure control for dose reduction was used. FINDINGS: CHEST: The heart is normal size with slight increased trace anterior pericardial fluid measuring 5 mm thick. Scattered three-vessel coronary artery calcifications are present. Mild atherosclerotic arch calcifications with conventional branching anatomy. * Unchanged mild soft tissue thickening in the subcarinal region and 1.3 cm. * Right hilar node at 2.3 x 1.5 cm versus 2.8 x 2.2 cm, previously. * No progressive thoracic lymphadenopathy is seen. * Calcified lymph nodes left axilla relating to prior granulomatous disease. Right perihilar soft tissue thickening extending to the medial right base is redemonstrated. Overall opacity measures 4.4 x 3.4 cm versus 5.1 x 2.6 cm, previously. The adjacent cavitary change just abov e measures smaller at 3.6 cm versus 4.1 cm, previously. Ongoing small to moderate-sized right pleural effusion. * A 6 mm pulmonary nodule posterior left upper lobe is new. * Spiculated opacity posterior left upper lobe measuring 1.7 cm, relatively unchanged. Mild to moderate emphysematous change. A couple benign calcifications granulomas are noted. ABDOMEN: No focal liver lesion or biliary ductal dilatation. Portal venous system is patent. Gallbladder, adrenal glands, right kidney, and pancreas show no gross anomaly. Benign 1.5 cm cortical cyst left kidney. Calcified granulomas within the spleen. Prominent upper abdominal aorta caval lymph node at 1.2 cm remains unchanged. This was not noted to b e hypermetabolic in the patient's 11/19/2021 PET/CT. No additional retroperitoneal or mesenteric adeno herbert seen. No dilated small bowel, free fluid, or free air. There is moderate overall stool burden. No pericolonic inflammatory change. PELVIS: Small bilateral inguinal hernias. There is some protrusion of the nonobstructed proximal sigmoid colo n within the left inguinal hernia. Prominent atherosclerotic calcifications throughout the iliac paul adriel. Dominant urinary bladder distention. Prostate gland measures 4.2 cm wide. No abnormal fluid col lection in the pelvis or pelvic lymphadenopathy. BONES: Mild degenerative change of the hips. Unchanged 2.5 cm lytic lesion of the L5 vertebral body and 1.1 cm lesion of the L3 vertebral body. Ei ther healed pathologic or traumatic fracture of the left posterolateral eighth rib. IMPRESSION: 1. OVERALL POSITIVE TREATMENT RESPONSE. ONLY A 6 MM LEFT UPPER LOBE PULMONARY NODULE IS NEW AND SHOUL D BE REASSESSED AT FOLLOW-UP. 2. THE RIGHT HILAR NODE IS SMALLER AT 2.3 CM VERSUS 2.8 CM, PREVIOUSLY. THE RIGHT PERIHILAR SOFT TISS UE EXTENDING DOWN THE MEDIAL RIGHT BASE IS SMALLER AT 4.4 CM VERSUS 5.1 CM, PREVIOUSLY. THE ADJACENT CAVITY IS ALSO SMALLER 3.6 CM VERSUS 4.1 CM, PREVIOUSLY. SIMILAR SMALL TO MODERATE RIGHT PLEURAL EFFU JESSIKA. 3. THE SPICULATED 1.7 CM NODULE LEFT UPPER LOBE IS UNCHANGED BUT NEEDS TO CONTINUE TO BE FOLLOWED. A SECOND PRIMARY IS NOT EXCLUDED. 4. KNOWN OSSEOUS LESIONS OF LEFT EIGHTH RIB, L3, AND L5 VERTEBRAL BODIES UNCHANGED.
== END | disposition home or self-care (01) ==
LOC: RADCTMAIN 08:57
PROVIDERS: ATTEND Internal Medicine
DX: C34.31 Malignant neoplasm of lower lobe, right bronchus or lung (principal); R91.1 Solitary pulmonary nodule; J90 Pleural effusion, not elsewhere classified; Z03.89 Encounter for observation for other suspected diseases and conditions ruled out; M99.88 Other biomechanical lesions of rib cage
CPT/HCPCS: 82565; 84520; 71260; 74177; 36415; Q9967

== ENCOUNTER → 2022-09-28 | Outpatient (CLI) | payer OTHER ==
[2022-09-28 12:36] LABS: African American GFR (CKD) >90 (>60 ml/min/1.73 sqM); Blood Urea Nitrogen 26 mg/dL (9-20); Non-African American GFR(CKD) 78 (>60 ml/min/1.73 sqM)
--- NOTE | 2022-09-28 19:11 | CT ---
EXAMINATION TYPE: CT ChestAbdPelvis w con DATE OF EXAM: 09/28/2022 COMPARISON: 06/27/2022 and 03/25/2022 HISTORY: 62-year-old male C34.31 obs for mets. hx lung ca. TECHNIQUE: Contiguous axial scanning of the chest, abdomen, and pelvis performed with IV Contrast, pa tient injected with 100 mL of Isovue 300. Delayed images through the kidneys were obtained. Coronal/s agittal reconstructions performed. CT DLP: 528.70 mGycm Automated exposure control for dose reduction was used. FINDINGS: CHEST: Heart normal size without pericardial effusion. The LAD coronary artery calcifications are present. Aorta normal caliber with conventional arch vessel branching anatomy. * Right hilar lymph node 2.0 x 1.4 cm now versus 2.3 x 1.6 cm, previously. * Subcarinal soft tissue measures 9 mm thick versus 1.3 cm, previously. * Posterior right infrahilar cyst or pneumatocele is smaller at 2.5 cm versus 3.6 cm, previously and now filled with fluid. * The contiguous abnormal medial right lower lobe subpleural soft tissue is smaller at 3.9 x 2.1 cm versus 4.4 x 3.4 cm, previously. * The adjacent small right pleural effusion is smaller. * Some mild patchy groundglass change right lower lobe is similar. * 6 mm superior segment right lower lobe pulmonary nodule is unchanged. * Irregular 1 cm posterior left upper lobe nodule is smaller compared to 1.7 cm, previously. * The previous mentioned 6 mm posterior left upper lobe pulmonary nodule is no longer well depicted. Moderate centrilobular emphysema. Calcified granuloma lateral left lower lobe. Abdomen: No focal liver lesion or biliary ductal dilatation. Portal venous system is patent. Gallbladder, adrenal glands, right kidney, and pancreas within normal limits. There is a 1.7 cm cortical cyst anterior left kidney. Some prominent small bowel loops are present throughout measuring up to 2.0 cm in caliber. No transit ion point. Prominent liquid stool has entered the cecum. Otherwise, there is moderate solid stool thr oughout the colon without pericolonic inflammatory change. Moderate atherosclerotic calcifications abdominal aorta and moderate to severe atelectatic changes th roughout the iliac arteries. No mesenteric or retroperitoneal lymphadenopathy seen. No free fluid or free air. Pelvis: Bladder is urine distended. Prostate gland measures 4.6 cm wide. No abnormal fluid collection in the pelvis or pelvic lymphadenopathy. Bones: Known lytic lesions in L3 and L5 vertebral bodies though more circumscribed now suggesting either sta bility of disease or some interval healing change. The previous left posterolateral eighth rib lesion is no longer well depicted. There are some residual bony irregularity here related to healing change . IMPRESSION: 1. ONGOING POSITIVE TREATMENT RESPONSE. THE PREVIOUSLY MENTIONED 6 MM LEFT UPPER LOBE PULMONARY NODUL E IS NO LONGER WELL DEPICTED. 2. CONTINUED DECREASING SIZE OF THE RIGHT HILAR NODE AT 2 CM VERSUS 2.3 CM, PREVIOUSLY. THE RIGHT PER IHILAR SOFT TISSUE EXTENDING DOWN THE MEDIAL RIGHT BASE IS SMALLER AT 3.9 CM VERSUS 4.4 CM, PREVIOUSL Y. THE ADJACENT CAVITY IS ALSO SMALLER AT 2.5 CM VERSUS 3.6 CM, PREVIOUSLY (THOUGH NOW FILLED WITH FL UID; CORRELATE TO EXCLUDE SUPERINFECTION). DECREASED, NOW SMALL RESIDUAL RIGHT PLEURAL EFFUSION. 3. THE SPICULATED LEFT UPPER LOBE NODULE IS SMALLER AT 1 CM VERSUS 1.7 CM, PREVIOUSLY. 4. KNOWN OSSEOUS LESIONS OF THE LEFT EIGHTH RIB, L3, AND L5 VERTEBRAL BODIES.
== END | disposition home or self-care (01) ==
LOC: RADCTMAIN 11:51
PROVIDERS: ATTEND Internal Medicine
DX: C34.31 Malignant neoplasm of lower lobe, right bronchus or lung (principal); J43.9 Emphysema, unspecified; M89.8X8 Other specified disorders of bone, other site; J90 Pleural effusion, not elsewhere classified; R91.1 Solitary pulmonary nodule; R06.02 Shortness of breath
CPT/HCPCS: 82565; 84520; 71260; 74177; 36415; Q9967

== ENCOUNTER 2022-12-07 08:10 | Inpatient (IN) | payer OTHER ==
[2022-12-07] MEDS ORDERED: SODIUM CHLORIDE 0.9% 1,000 ML IV ONE (08:29)
[2022-12-07] MEDS ORDERED: ASPIRIN 325 MG TAB PO STA (08:29)
[2022-12-07] MEDS ORDERED: ATORVASTATIN 80 MG TAB PO STA (08:29)
[2022-12-07] MEDS ORDERED: HEPARIN SODIUM 1,000 UN/ML (10ML VL) IVP STA (08:30)
[2022-12-07] MEDS ORDERED: ASPIRIN 81 MG PO STA (08:31)
[2022-12-07] MEDS ORDERED: NALOXONE 0.4 MG/ML 1 ML VIAL IV PRN (08:32)
[2022-12-07] MEDS ORDERED: IV FLUID CONTINUATION 1,000 ML IV ONE (08:40)
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
--- NOTE | 2022-12-07 08:45 | XR ---
EXAMINATION TYPE: XR chest 1V portable DATE OF EXAM: 12/07/2022 8:38 AM COMPARISON: Chest radiographs from 03/08/2022 TECHNIQUE: XR chest 1V portable Portable AP radiograph of the chest. CLINICAL INDICATION:Male, 62 years old with history of chest pain; FINDINGS: Lungs/Pleura: No significant change in hazy opacities within the right medial lung base consistent wi th known malignancy. Small right pleural effusion redemonstrated. No pneumothorax. The left lung is c lear. Pulmonary vascularity: Unremarkable. Heart/mediastinum: Cardiomediastinal silhouette is unremarkable. Atherosclerotic calcifications are seen in the aorta. Musculoskeletal: No acute osseous pathology. IMPRESSION: Overall similar examination with right medial lung base airspace opacities related to known malignanc y and small right pleural effusion.
[2022-12-07] MEDS ORDERED: LIDOCAINE 1% INJ 10MG/ML (20 ML MDV) SQ ONE (08:49)
[2022-12-07] MEDS ORDERED: HEPARIN SODIUM 1,000 UN/ML (10ML VL) IV ONE ×2 (09:00→09:19)
[2022-12-07] MEDS ORDERED: TICAGRELOR 90 MG TAB PO ONE (09:00)
[2022-12-07] MEDS ORDERED: TICAGRELOR 90 MG TAB ONE (09:00)
[2022-12-07 09:02] LABS: INR 0.9 (<1.2); Partial Thromboplastin Time 22.4 sec (22.0-30.0); Prothrombin Time 9.9 sec (9.0-12.0)
[2022-12-07] MEDS ORDERED: NITROGLYCERIN 1000MCG/10ML SYRINGE INTRACORON ONE (09:06)
[2022-12-07 09:08] LABS: Basophils # (A) 0.1 k/uL (0-0.2); Basophils % (A) 1 %; Eosinophils # (A) 0.4 k/uL (0-0.7); Eosinophils % (A) 3 %; HCT 46.7 % (39.0-53.0); HGB 15.6 gm/dL (13.0-17.5); Lymphocytes # (A) 1.8 k/uL (1.0-4.8); Lymphocytes % (A) 17 %; MCH 32.6 pg (25.0-35.0); MCHC 33.3 g/dL (31.0-37.0); MCV 97.8 fL (80.0-100.0); Mean Platelet Volume 8.5; Monocytes # (A) 0.8 k/uL (0-1.0); Monocytes % (A) 8 %; Neutrophils # (A) 7.3 k/uL (1.3-7.7); Neutrophils % (A) 69 %; Platelet Count 220 k/uL (150-450); RBC 4.78 m/uL (4.30-5.90); RDW 14.5 % (11.5-15.5); WBC 10.5 k/uL (3.8-10.6)
[2022-12-07 09:09] LABS: ALT 13 U/L (4-49); AST 32 U/L (17-59); African American GFR (CKD) 50 (>60 ml/min/1.73 sqM); Albumin 3.6 g/dL (3.5-5.0); Alkaline Phosphatase 104 U/L (38-126); Anion Gap 8 mmol/L; Blood Urea Nitrogen 25 mg/dL (9-20); Calcium 8.8 mg/dL (8.4-10.2); Carbon Dioxide 23 mmol/L (22-30); Chloride 104 mmol/L (98-107); Glucose 145 mg/dL (74-99); Non-African American GFR(CKD) 43 (>60 ml/min/1.73 sqM); Potassium 4.5 mmol/L (3.5-5.1); Sodium 135 mmol/L (137-145); Total Bilirubin 0.6 mg/dL (0.2-1.3); Total Protein 6.9 g/dL (6.3-8.2)
[2022-12-07] MEDS ORDERED: IOPAMIDOL-370 100ML BTL INJ ONE ×2 (09:13→09:48)
[2022-12-07] MEDS ORDERED: DOPamine DRIP 800 MG in DEXTROSE/WATER 1 250ML.BAG IV ONE (09:20)
[2022-12-07 10:26] LABS: Glucose,Whole Blood 94 mg/dL (70-110)
[2022-12-07] MEDS ORDERED: IPRATROPIUM-ALBUTEROL 3 ML NEB INHALATION PRN (10:49)
[2022-12-07] MEDS ORDERED: HYDROcodone/APAP 10-325MG 1 EACH TAB PO PRN (11:35)
[2022-12-07] MEDS ORDERED: ERGOCALCIFEROL 1,250 MCG (50,000 IU) CAPSULE PO SCH (12:00)
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
[2022-12-07] MEDS ORDERED: RX INFO: IV CONTRAST WAS GIVEN 1 EACH MISC MISCELLANE PRN (12:10)
[2022-12-07] MEDS ORDERED: ZOLPIDEM 5 MG TAB PO PRN (12:10)
[2022-12-07] MEDS ORDERED: NITROGLYCERIN SL TABS 0.4 MG TAB SUBLINGUAL PRN (12:10)
[2022-12-07] MEDS ORDERED: ATROPINE SULFATE 0.1 MG/ML 10ML SYRINGE IV PRN (12:10)
[2022-12-07] MEDS ORDERED: MAG HYDROX/AL HYDROX/SIMETH 30 ML CUP PO PRN (12:10)
[2022-12-07] MEDS ORDERED: SODIUM CHLORIDE 0.9% 1,000 ML in EMPTY BAG 1 BAG IV SCH (12:15)
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
--- NOTE | 2022-12-07 15:31 | P.CARDCATH ---
Date of Procedure: 12/07/22 Description of Procedure: Cardiac Catheterization: The patient is a 62-year-old male with history of chronic tobacco use who presented with an acute inferior wall myocardial infarction and complete heart block. Recommendations were made regarding cardiac catheterization, the risks and the complications were discussed with the patient who is in full understanding and agreement. Procedure Description: Patient was brought to mine laborer in fasting semi-sedated state after receiving Fentanyl and Benadryl achieiving moderate conscious sedated state. Using Xylocaine Anesthesia and Seldinger technique, a 6-[place]ib[place] sheath was introduced in the right femoral artery using micropuncture technique. Subsequently a 6- [place] sheath was introduced in the right femoral vein using micropuncture technique. Temporary pacemaker was advanced and positioned in the right ventricle with obtaining good pacing parameters. Subsequently, selective coronary angiography was performed using a 6-[place]ib[place] 4 bend left Ora catheter and 6-[place]ib[place] right FR 4 guiding catheter. Multiple views of the coronary artery including hemiaxial views were obtained. Images of the right coronary artery were performed first and after performing angioplasty and stenting images of the left system were obtained. The 6-[place]ib[place]ian pigtail catheter was used to cross the aortic valve and LVEDP was calculated. Following that, catheter and sheath were removed. Hemostasis was obtained with deployment of Angio-Seal . The right femoral vein was sutured in place. There was no immediate complication. Patient was returned to room in stable condition. Of note, the patient received a total of 6000 units of intravenous heparin as well as and loading dose of Brilinta. He was pain-free at the end of the procedure with resolution of the complete heart block. The temporary pacemaker was removed. Hemodynamically he was stable at the end of the procedure. During the procedure he had episodes of hypotension requiring IV dopamine for a short period of time. PCI: Using the right guiding catheter a 0.014 BMW J-wire was advanced to the PLV. Rosales bsequently 2.25 x 12 mm Treck advanced into inflation at 8 rosalva were done. Subsequently a 2.25 x 38 mm Xience jw point stent was advanced and dilated at 16 rosalva, after removing the balloon a 3.0 x 12 mm NC Treck balloon was advanced and inflation in the proximal segment of the stent at 10 rosalva were done. After removing the balloon a 3.5 x 23 mm Xience jw point stent was deployed in the mid segment at 16 rosalva, after removing the balloon another 3.5 x 15 mm Xience jw point stent was deployed distal to the first one and dilated at 16 rosalva. Subsequently a 3.5 x 15 mm NC Treck balloon was advanced and inflation in the proximal segment of the distal stent and the mid segment stent were done at 10 rosalva. After removing the wire images were obtained and revealed stable successful stenting. Findings: Fluoroscopy there is calcification involving the LAD Left main: This is a large-size vessel, bifurcating to left circumflex and LAD, left main has no high-grade stenosis LAD: This is a large-size vessel, reaching to the apex, giving rise to 2 diagonal branch, the first one is large in caliber. The mid LAD has 20-30% plaque, the rest of the vessel has no high-grade stenosis Left circumflex: This is a large nondominant vessel giving rise to large obtuse marginal branch, the left circumflex has no obstructive disease RCA: This is a large dominant vessel, bifurcating distally to PDA and PLV. The mid RCA has a 70% tubular lesion. The distal vessel at the bifurcation has a 99% stenosis extending into the PLV. Left Ventriculogram: Not performed Hemodynamics: There was no gradient across the aortic valve, LVEDP was 16-18 mmHg Conclusion: 1. Severe stenosis in the distal RCA 2. Mild disease in the LAD 3. Successful stenting of the mid RCA with reduction of stenosis from 70% to 0% 4. Successful stenting of the distal RCA with reduction of stenosis from 99% to 0%. There was a ERIKA 3 flow in the PDA. Recommendations: The patient will continue on aspirin and Brilinta without any interruption for 12 months in addition to aggressive coronary risks modifications. The findings and the recommendations were discussed with the patient and the family and they were in full understanding and agreement. Duration of sedation is 65 minutes.
[2022-12-07] MEDS: IPRATROPIUM-ALBUTEROL 3 ML NEB INHALATION SCH ×3 (15:34→21:43)
[2022-12-07] MEDS: TAMSULOSIN 0.4 MG CAP.ER.24H PO SCH (17:25)
[2022-12-07 18:03] LABS: Chol/HDL Ratio 4.12 Ratio; LDL Cholesterol,Calculated 86.4 mg/dL (0.0-131.0)
[2022-12-08 05:04] LABS: Basophils % (A) 0 %; Eosinophils # (A) 0.2 k/uL (0-0.7); Eosinophils % (A) 3 %; HCT 39.5 % (39.0-53.0); HGB 13.1 gm/dL (13.0-17.5); Lymphocytes # (A) 1.1 k/uL (1.0-4.8); Lymphocytes % (A) 13 %; MCH 32.6 pg (25.0-35.0); MCHC 33.1 g/dL (31.0-37.0); MCV 98.4 fL (80.0-100.0); Mean Platelet Volume 8.4; Monocytes # (A) 0.5 k/uL (0-1.0); Monocytes % (A) 7 %; Neutrophils % (A) 76 %; Platelet Count 188 k/uL (150-450); RBC 4.02 m/uL (4.30-5.90); RDW 14.6 % (11.5-15.5); WBC 7.9 k/uL (3.8-10.6)
[2022-12-08] MEDS: PANTOPRAZOLE 40 MG TABLET PO SCH (06:56)
[2022-12-08 07:02] LABS: African American GFR (CKD) >90 (>60 ml/min/1.73 sqM); Anion Gap 7 mmol/L; Blood Urea Nitrogen 17 mg/dL (9-20); Calcium 8.3 mg/dL (8.4-10.2); Carbon Dioxide 20 mmol/L (22-30); Chloride 107 mmol/L (98-107); Glucose 97 mg/dL (74-99); Non-African American GFR(CKD) >90 (>60 ml/min/1.73 sqM); Potassium 4.2 mmol/L (3.5-5.1); Sodium 134 mmol/L (137-145)
--- NOTE | 2022-12-08 07:36 | P.PN ---
Subjective Progress Note Date: 12/08/22 PROGRESS NOTE The patient is a 62-year-old male with a known history of lung malignancy, receiving immunotherapy, chronic COPD with chronic tobacco use who presented with an acute episode of chest discomfort, was found to have an acute inferior myocardial infarction with complete heart block. He has some discomfort on and off in the past but according to him different the discomfort today was quite severe. He has chronic dyspnea on exertion. He denies any palpitations or syncope. He has been having some palpitations at home and was scheduled to undergo a monitor as an outpatient. He has no prior documented history of CAD. He had an MPI in February 2020 that showed no evidence of obstructive disease with normal left ventricle systolic function. He has a history of hypertension and hyperlipidemia. December 08: The patient feels well today. He underwent cardiac catheterization with stenting of the RCA in the mid and distal segment. He had a temporary pacemaker that was removed. He has no further chest discomfort or arm discomfort. He continues to be in sinus mechanism with sinus bradycardia. He is on no vasopressors. He denies any nausea or vomiting. He has no palpitations. Medications: Aspirin, Flomax, Brilinta 90 mg twice a day, Lipitor 80 mg daily PHYSICAL EXAMINATION: Blood pressure 100/60 heart rate 50 LUNGS: Decreased breath sounds bilaterally HEART: Regular rate and rhythm, S1, S2. No S3. No systolic murmur ABDOMEN: Soft, nontender, no organomegaly EXTREMETIES: No edema, right groin no hematoma LAB: Sodium 134, potassium 4.2, BUN 17, creatinine 0.89. Hemoglobin 13.1. IMPRESSION: 1. Status post acute inferior wall myocardial infarction and stenting of the RCA 2. Complete heart block with the acute [place], resolved 3. History of lung cancer on immunotherapy 4. Chronic tobacco use with chronic obstructive lung disease 5. Acute renal injury, resolved PLAN: 1. Increase physical activity 2. Transfer to telemetry 3. Obtain an echocardiogram with Doppler 4. If blood pressure and heart rate are stable add LINDA inhibitor and beta jairo 5. Smoking cessation Objective - Vital Signs Vital signs: Vital Signs Temp 98.2 F 12/08/22 04:00 Pulse 54 L 12/08/22 07:00 Resp 24 12/08/22 07:00 BP 94/51 12/08/22 07:00 Pulse Ox 95 12/08/22 07:00 FiO2 Intake & Output 12/07/22 12/08/22 12/08/22 18:59 06:59 18:59 Intake Total 922.2 600 50 Output Total 700 1050 Balance 222.2 -450 50 Weight 63.503 kg 66.1 kg Intake: IV 922.2 600 50 0.9 420 600 50 Output: Urine 700 1050 Other: Voiding Method Urinal - Labs CBC & Chem 7: 12/08/22 03:58 12/08/22 03:58 Labs: Abnormal Lab Results - Last 24 Hours (Table) 12/07/22 12/07/22 12/08/22 Range/Units 08: 08: 03:58 RBC 4.02 L (4.30-5.90) m/uL Sodium 135 L (137-145) mmol/L Carbon Dioxide (22-30) mmol/L BUN 25 H (9-20) mg/dL Creatinine 1.66 H (0.66-1.25) mg/dL Glucose 145 H (74-99) mg/dL Calcium (8.4-10.2) mg/dL Triglycerides 155.00 H (0.00-149.00) mg/dL HDL Cholesterol 37.60 L (40.00-60.00) mg/dL 12/08/22 Range/Units 03:58 RBC (4.30-5.90) m/uL Sodium 134 L (137-145) mmol/L Carbon Dioxide 20 L (22-30) mmol/L BUN (9-20) mg/dL Creatinine (0.66-1.25) mg/dL Glucose (74-99) mg/dL Calcium 8.3 L (8.4-10.2) mg/dL Triglycerides (0.00-149.00) mg/dL HDL Cholesterol (40.00-60.00) mg/dL
[2022-12-08] MEDS: IPRATROPIUM-ALBUTEROL 3 ML NEB INHALATION SCH ×4 (07:47→19:53)
[2022-12-08] MEDS: TICAGRELOR 90 MG TAB PO SCH ×2 (08:19→20:35)
[2022-12-08] MEDS: TAMSULOSIN 0.4 MG CAP.ER.24H PO SCH ×2 (08:19→17:43)
[2022-12-08] MEDS: ASPIRIN 81 MG PO SCH (08:19)
[2022-12-08] MEDS: NICOTINE 21MG/24HR PATCH TRANSDERM SCH (08:19)
--- NOTE | 2022-12-08 10:45 | CA ---
Transthoracic Echo Report Name: Rubén Yonug Age: 62 Gender: M : 1960 Exam Date: 12/08/2022 08:39 Exam Location: [facility] Ht (in): 65 Wt (lb): 140 Ordering Physician: Maximino Mcfarland MD ([id number]) Attending/Referring Phys: Counter Supervisor Brendon Villaseñor Procedure CPT: Indications: DC Cardiac Hx: Technical Quality: Fair Contrast 1: Total Dose (mL): Contrast 2: Total Dose (mL): MEASUREMENTS (Male / Female) Normal Values 2D ECHO LV Diastolic Diameter PLAX 4.3 cm 4.2 - 5.9 / 3.9 - 5.3 cm LV Systolic Diameter PLAX 2.5 cm IVS Diastolic Thickness 0.9 cm 0.6 - 1.0 / 0.6 - 0.9 cm LVPW Diastolic Thickness 1.1 cm 0.6 - 1.0 / 0.6 - 0.9 cm LV Relative Wall Thickness 0.5 RV Internal Dim ED PLAX 2.9 cm LVOT Diameter 2.0 cm Aortic Root Diameter 3.0 cm LA Systolic Diameter LX 2.9 cm 3.0 - 4.0 / 2.7 - 3.8 cm LV Diastolic Volume MOD BP 48.0 cm??? 67 - 155 / 56 - 104 cm??? LV Systolic Volume MOD BP 23.6 cm??? - 58 / 19 - 49 cm??? LV Ejection Fraction MOD BP 50.7 % >= 55 % LV Cardiac Index MOD BP 739.1 cm???/min???m??? LV Diastolic Volume MOD 4C 47.3 cm??? LV Systolic Volume MOD 4C 24.4 cm??? LV Ejection Fraction MOD 4C 48.4 % LV Cardiac Index MOD 4C 696.0 cm???/min???m??? LV Diastolic Length 4C 6.6 cm LV Systolic Length 4C 5.6 cm LV Diastolic Volume MOD 2C 46.7 cm??? LV Systolic Volume MOD 2C 22.6 cm??? LV Ejection Fraction MOD 2C 51.6 % LV Cardiac Index MOD 2C 731.0 cm???/min???m??? LV Diastolic Length 2C 6.3 cm LV Systolic Length 2C 5.5 cm LA Volume 34.7 cm??? 18 - 58 / 22 - 52 cm??? DOPPLER AV Peak Velocity 128.3 cm/s AV Peak Gradient 6.6 mmHg AV Mean Velocity 81.0 cm/s AV Mean Gradient 3.0 mmHg AV Velocity Time Integral 29.4 cm LVOT Peak Velocity 78.2 cm/s LVOT Peak Gradient 2.4 mmHg LVOT Velocity Time Integral 17.7 cm LVOT Stroke Volume 56.8 cm??? LVOT Stroke Volume Index 33.4 ml/m??? LVOT Cardiac Index 1723.6 cm???/min???m??? AV Area Cont Eq vti 1.9 cm??? AV Area Cont Eq pk 2.0 cm??? MV Peak Velocity 105.8 cm/s MV Peak Gradient 4.5 mmHg MV Mean Velocity 36.9 cm/s MV Mean Gradient 0.8 mmHg MV Velocity Time Integral 40.6 cm Mitral E Point Velocity 104.7 cm/s Mitral A Point Velocity 71.8 cm/s Mitral E to A Ratio 1.5 MV Deceleration Time 169.8 ms MV E' Velocity 8.0 cm/s Mitral E to MV E' Ratio 13.0 PV Peak Velocity 75.8 cm/s PV Peak Gradient 2.3 mmHg FINDINGS Left Ventricle Mildly decreased left ventricular ejection fraction. Left ventricular ejection fraction is estimated at 45-50 %. Normal LV size and wall thickness. Right Ventricle Normal right ventricular size. Right Atrium Normal right atrial size. Left Atrium Normal left atrial size. LA volume index= 20ml/m2 Mitral Valve Structurally normal mitral valve. No mitral regurgitation. Aortic Valve Trileaflet aortic valve. No aortic valve stenosis or regurgitation. Tricuspid Valve Structurally normal tricuspid valve. Trace TR. Pulmonic Valve Pulmonic valve not well visualized. No pulmonic regurgitation. Pericardium Normal pericardium. Aorta Normal size aortic root . CONCLUSIONS Mildly impaired LV function with an EF between 45-50% Previewed by: Dr. Deven Giang MD (Electronically Signed) Final Date: 08 December 2022 10:44
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
--- NOTE | 2022-12-08 14:21 | P.PN ---
Subjective Progress Note Date: 12/08/22 This is a 62-year-old white male with history of multiple medical problems including bronchogenic carcinoma, patient is on immunotherapy, status post radiation treatment, patient is also known to have history of COPD, his initial diagnosis was made by Dr. Blanchard as the patient was seen for right lower lobe mass and mediastinal lymphadenopathy. Underwent a bronchoscopy, EBUS, transbronchial needle aspiration of station 7 and 10 R lymph nodes he also had navigational bronchoscopy with transbronchial biopsy of right lower lobe mass and BAL patient was found to have metastatic non-small cell lung cancer, consistent with squamous cell carcinoma. At any rate the patient has been seeing Dr. Porras for his advanced stage of lung cancer, and he is presently on immunotherapy. This time the patient was admitted with acute onset of chest pain and what seems to be an acute ST elevation myocardial infarction. Patient underwent immediate cardiac catheterization by Dr. Mcfarland, and he received 3 stents to the RCA he also required a temporary pacemaker implantation and transferred to the ICU. After arrival to the ICU, patient was noted to be on room air, hemodynamically stable, no chest pain, no shortness of breath, no cough, and no wheezes. Patient was hemodynamically stable, hence the plan is to monitor the patient overnight, and this consult was initiated. Labs today showed relatively normal CBC and normal electrolytes her BUN is 25 creatinine 1.66 baseline creatinine from 2 months ago was 1.01. Chest x-ray showed hazy opacities in the right medial lung base consistent with his previous history of malignancy there is also a small tiny right-sided pleural effusion otherwise the findings are unremarkable. The patient is seen today 12/08/2022 in follow-up on the selective care unit. He was transferred out of the intensive care unit early this morning. He is doing very well. Sitting up in the bedside. Awake and alert in no acute distress. No further chest pain. No worsening shortness of breath, cough or congestion. Maintaining O2 saturations in the mid to upper 90s on room air. He's been afebrile. Hemodynamically stable. White count 7.9. Hemoglobin 13.1. Platelets 188. Sodium 134. Potassium 4.2. Bicarb 20. BUN 17. Creatinine 0.89. He is continued on DuoNeb inhalations. NicoDerm patch in place. Maintained on aspirin and Brillinta. Objective - Vital Signs Vital signs: Vital Signs Temp 97.5 F L 12/08/22 11:11 Pulse 57 L 12/08/22 13:12 Resp 16 12/08/22 11:11 BP 94/52 12/08/22 11:11 Pulse Ox 99 12/08/22 11:11 FiO2 Intake & Output 12/07/22 12/08/22 12/08/22 18:59 06:59 18:59 Intake Total 922.2 600 460 Output Total 700 1050 400 Balance 222.2 -450 60 Weight 63.503 kg 66.1 kg Intake: IV 922.2 600 50 0.9 420 600 50 Oral 410 Output: Urine 700 1050 400 Other: Voiding Method Urinal Toilet Urinal - Exam GENERAL EXAM: Alert, active, very pleasant 62-year-old male, on room air, comfortable in no apparent distress. HEAD: Normocephalic. EYES: Normal reaction of pupils, equal size. NOSE: Clear with pink turbinates. THROAT: No erythema or exudates. NECK: No masses, no JVD. CHEST: No chest wall deformity. LUNGS: Equal air entry with no crackles, wheeze, rhonchi or dullness. Diminished. CVS: S1 and S2 normal with no audible murmur, regular rhythm. ABDOMEN: No hepatosplenomegaly, normal bowel sounds, no guarding or rigidity. SPINE: No scoliosis or deformity SKIN: No rashes CENTRAL NERVOUS SYSTEM: No focal deficits, tone is normal in all 4 extremities. EXTREMITIES: Groin site stable. There is no peripheral edema. No clubbing, no cyanosis. Peripheral pulses are intact. - Labs CBC & Chem 7: 12/08/22 03:58 12/08/22 03:58 Labs: Abnormal Lab Results - Last 24 Hours (Table) 12/07/22 12/08/22 12/08/22 Range/Units 08: 03:58 03:58 RBC 4.02 L (4.30-5.90) m/uL Sodium 134 L (137-145) mmol/L Carbon Dioxide 20 L (22-30) mmol/L Calcium 8.3 L (8.4-10.2) mg/dL Triglycerides 155.00 H (0.00-149.00) mg/dL HDL Cholesterol 37.60 L (40.00-60.00) mg/dL Assessment and Plan Assessment: Acute ST elevation myocardial infarction, status post cardiac catheterization and stent 3 to RCA. History of squamous cell lung cancer, advanced age, on immunotherapy History of nicotine dependence Underlying COPD relatively inactive History of TIA Plan: The patient was seen and evaluated Labs and medications reviewed Currently stable and on room air Educated regarding the importance of complete smoking cessation NicoDerm patch in place Continue bronchodilators Remains on aspirin and Brilinta Home once cleared by cardiology We will continue to follow I have personally seen and examined the patient, performed the documentation and the assessment and plan as written. Number of minutes spent on the visit: 10.
[2022-12-08] MEDS ORDERED: ATORVASTATIN 80 MG TAB PO SCH (21:00)
[2022-12-09 04:31] VITALS: RESP 16
[2022-12-09] MEDS: PANTOPRAZOLE 40 MG TABLET PO SCH (06:46)
[2022-12-09] MEDS: ASPIRIN 81 MG PO SCH (08:10)
[2022-12-09] MEDS: NICOTINE 21MG/24HR PATCH TRANSDERM SCH (08:10)
[2022-12-09] MEDS: TICAGRELOR 90 MG TAB PO SCH (08:10)
[2022-12-09] MEDS: TAMSULOSIN 0.4 MG CAP.ER.24H PO SCH (08:10)
[2022-12-09 08:16] VITALS: TEMP 97.5
[2022-12-09] MEDS: IPRATROPIUM-ALBUTEROL 3 ML NEB INHALATION SCH ×3 (08:37→15:43)
[2022-12-09 08:41] LABS: Basophils % (A) 1 %; Eosinophils # (A) 0.2 k/uL (0-0.7); Eosinophils % (A) 3 %; HCT 41.6 % (39.0-53.0); HGB 13.8 gm/dL (13.0-17.5); Lymphocytes % (A) 12 %; MCH 32.5 pg (25.0-35.0); MCHC 33.1 g/dL (31.0-37.0); MCV 97.9 fL (80.0-100.0); Mean Platelet Volume 8.4; Monocytes # (A) 0.5 k/uL (0-1.0); Monocytes % (A) 6 %; Neutrophils % (A) 77 %; Platelet Count 226 k/uL (150-450); RBC 4.25 m/uL (4.30-5.90); RDW 14.4 % (11.5-15.5); WBC 7.8 k/uL (3.8-10.6)
[2022-12-09 08:52] LABS: ALT 15 U/L (4-49); AST 68 U/L (17-59); African American GFR (CKD) >90 (>60 ml/min/1.73 sqM); Albumin 3.3 g/dL (3.5-5.0); Alkaline Phosphatase 64 U/L (38-126); Anion Gap 6 mmol/L; Blood Urea Nitrogen 13 mg/dL (9-20); Calcium 8.9 mg/dL (8.4-10.2); Carbon Dioxide 23 mmol/L (22-30); Chloride 106 mmol/L (98-107); Glucose 106 mg/dL (74-99); Non-African American GFR(CKD) 89 (>60 ml/min/1.73 sqM); Potassium 4.6 mmol/L (3.5-5.1); Sodium 135 mmol/L (137-145); Total Protein 6.3 g/dL (6.3-8.2)
[2022-12-09 11:05] VITALS: BP 101/60; PULSE 77
[2022-12-09 12:02] VITALS: BMI 23.0
--- NOTE | 2022-12-09 13:12 | P.PN ---
Subjective Progress Note Date: 12/09/22 PROGRESS NOTE The patient is a 62-year-old male with a known history of lung malignancy, receiving immunotherapy, chronic COPD with chronic tobacco use who presented with an acute episode of chest discomfort, was found to have an acute inferior myocardial infarction with complete heart block. He has some discomfort on and off in the past but according to him different the discomfort today was quite severe. He has chronic dyspnea on exertion. He denies any palpitations or syncope. He has been having some palpitations at home and was scheduled to undergo a monitor as an outpatient. He has no prior documented history of CAD. He had an MPI in February 2020 that showed no evidence of obstructive disease with normal left ventricle systolic function. He has a history of hypertension and hyperlipidemia. December 08: The patient feels well today. He underwent cardiac catheterization with stenting of the RCA in the mid and distal segment. He had a temporary pacemaker that was removed. He has no further chest discomfort or arm discomfort. He continues to be in sinus mechanism with sinus bradycardia. He is on no vasopressors. He denies any nausea or vomiting. He has no palpitations. December 09: The patient feels well today, he has vague chest discomfort, brief and sharp, different from his presenting symptoms. He continues to be in sinus mechanism, ambulating without difficulty. He denies any dizziness or palpitations. He denies any nausea or vomiting. He has no further episodes of complete heart block. His echocardiogram showed an ejection fraction of 45-50% with no signif icant mitral regurgitation Medications: Aspirin, Flomax, Brilinta 90 mg twice a day, Lipitor 80 mg daily PHYSICAL EXAMINATION: Blood pressure 100/60 heart rate 60 LUNGS: Decreased breath sounds bilaterally HEART: Regular rate and rhythm, S1, S2. No S3. No systolic murmur ABDOMEN: Soft, nontender, no organomegaly EXTREMETIES: No edema, LAB: Sodium 135, potassium 4.6, BUN 13, creatinine 0.91. Hemoglobin 13.8 IMPRESSION: 1. Status post acute inferior wall myocardial infarction and stenting of the RCA 2. Complete heart block with the acute FL, resolved 3. History of lung cancer on immunotherapy 4. Chronic tobacco use with chronic obstructive lung disease 5. Acute renal injury, resolved 6. Low blood pressure PLAN: 1. Increase physical activity 2. Patient blood pressure is low so no LINDA inhibitor or beta jairo has been started, he will be followed as an outpatient and that regard 3. Probable discharge home today and follow his hemodynamics to see if he is a candidate for beta jairo or LINDA inhibitor Objective - Vital Signs Vital signs: Vital Signs Temp 97.5 F L 12/09/22 08:04 Pulse 77 12/09/22 11:05 Resp 16 12/09/22 11:05 BP 101/60 12/09/22 11:05 Pulse Ox 98 12/09/22 11:05 FiO2 Intake & Output 12/08/22 12/09/22 12/09/22 18:59 06:59 18:59 Intake Total 570 480 Output Total 400 Balance 170 480 Weight 62.7 kg 62.7 kg Intake: IV 50 0.9 50 Oral 520 480 Output: Urine 400 Other: Voiding Method Toilet Toilet Urinal # Voids 1 2 1 - Labs CBC & Chem 7: 12/09/22 08:03 12/09/22 08:03 Labs: Abnormal Lab Results - Last 24 Hours (Table) 12/09/22 12/09/22 Range/Units 08:03 08:03 RBC 4.25 L (4.30-5.90) m/uL Sodium 135 L (137-145) mmol/L Glucose 106 H (74-99) mg/dL AST 68 H (17-59) U/L Albumin 3.3 L (3.5-5.0) g/dL
--- NOTE | 2022-12-09 14:08 | P.PN ---
Subjective Progress Note Date: 12/09/22 This is a 62-year-old white male with history of multiple medical problems including bronchogenic carcinoma, patient is on immunotherapy, status post radiation treatment, patient is also known to have history of COPD, his initial diagnosis was made by Dr. Blanchard as the patient was seen for right lower lobe mass and mediastinal lymphadenopathy. Underwent a bronchoscopy, EBUS, transbronchial needle aspiration of station 7 and 10 R lymph nodes he also had navigational bronchoscopy with transbronchial biopsy of right lower lobe mass and BAL patient was found to have metastatic non-small cell lung cancer, consistent with squamous cell carcinoma. At any rate the patient has been seeing Dr. Porras for his advanced stage of lung cancer, and he is presently on immunotherapy. This time the patient was admitted with acute onset of chest pain and what seems to be an acute ST elevation myocardial infarction. Patient underwent immediate cardiac catheterization by Dr. Mcfarland, and he received 3 stents to the RCA he also required a temporary pacemaker implantation and transferred to the ICU. After arrival to the ICU, patient was noted to be on room air, hemodynamically stable, no chest pain, no shortness of breath, no cough, and no wheezes. Patient was hemodynamically stable, hence the plan is to monitor the patient overnight, and this consult was initiated. Labs today showed relatively normal CBC and normal electrolytes her BUN is 25 creatinine 1.66 baseline creatinine from 2 months ago was 1.01. Chest x-ray showed hazy opacities in the right medial lung base consistent with his previous history of malignancy there is also a small tiny right-sided pleural effusion otherwise the findings are unremarkable. The patient is seen today 12/08/2022 in follow-up on the selective care unit. He was transferred out of the intensive care unit early this morning. He is doing very well. Sitting up in the bedside. Awake and alert in no acute distress. No further chest pain. No worsening shortness of breath, cough or congestion. Maintaining O2 saturations in the mid to upper 90s on room air. He's been afebrile. Hemodynamically stable. White count 7.9. Hemoglobin 13.1. Platelets 188. Sodium 134. Potassium 4.2. Bicarb 20. BUN 17. Creatinine 0.89. He is continued on DuoNeb inhalations. NicoDerm patch in place. Maintained on aspirin and Brillinta. The patient is seen today 12/09/2022 in follow-up on the selective care unit. He is awake and alert in no acute distress. He's been up ambulating in his room. He is maintaining O2 saturations in the 90s on room air. Cardiology is adjusting his blood pressure medication. White count 7.8. Hemoglobin 13.8. Platelets 226. Sodium 135. Potassium 4.6. Bicarb 23. BUN 13. Creatinine 0.91. Glucose 103. He's maintained on bronchodilators. NicoDerm patch in place. Objective - Vital Signs Vital signs: Vital Signs Temp 97.5 F L 12/09/22 08:04 Pulse 77 12/09/22 11:05 Resp 16 12/09/22 11:05 BP 101/60 12/09/22 11:05 Pulse Ox 98 12/09/22 11:05 FiO2 Intake & Output 12/08/22 12/09/22 12/09/22 18:59 06:59 18:59 Intake Total 570 480 Output Total 400 Balance 170 480 Weight 62.7 kg 62.7 kg Intake: IV 50 0.9 50 Oral 520 480 Output: Urine 400 Other: Voiding Method Toilet Toilet Urinal # Voids 1 2 1 - Exam GENERAL EXAM: Alert, pleasant 62-year-old male, on room air, comfortable in no apparent distress. HEAD: Normocephalic. EYES: Normal reaction of pupils, equal size. NOSE: Clear with pink turbinates. THROAT: No erythema or exudates. NECK: No masses, no JVD. CHEST: No chest wall deformity. LUNGS: Equal air entry with no crackles, wheeze, rhonchi or dullness. Diminished. CVS: S1 and S2 normal with no audible murmur, regular rhythm. ABDOMEN: No hepatosplenomegaly, normal bowel sounds, no guarding or rigidity. SPINE: No scoliosis or deformity SKIN: No rashes CENTRAL NERVOUS SYSTEM: No focal deficits, tone is normal in all 4 extremities. EXTREMITIES: Groin site stable. There is no peripheral edema. No clubbing, no cyanosis. Peripheral pulses are intact. - Labs CBC & Chem 7: 12/09/22 08:03 12/09/22 08:03 Labs: Abnormal Lab Results - Last 24 Hours (Table) 12/09/22 12/09/22 Range/Units 08:03 08:03 RBC 4.25 L (4.30-5.90) m/uL Sodium 135 L (137-145) mmol/L Glucose 106 H (74-99) mg/dL AST 68 H (17-59) U/L Albumin 3.3 L (3.5-5.0) g/dL Assessment and Plan Assessment: Acute ST elevation myocardial infarction, status post cardiac catheterization a nd stent 3 to RCA Hypotension, medications being adjusted History of squamous cell lung cancer, advanced age, on immunotherapy History of nicotine dependence Underlying COPD relatively inactive History of TIA Plan: The patient was seen and evaluated Labs and medications reviewed Currently stable and on room air Again educated regarding the importance of complete smoking cessation NicoDerm patch in place Continue his home pulmonary medications To keep his appointment in our office as scheduled I have personally seen and examined the patient, performed the documentation and the assessment and plan as written. Number of minutes spent on the visit: 10.
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
== END 2022-12-09 16:27 | disposition home or self-care (01) | DRG 247 ==
LOC: EC 08:10 → 2SICU 08:32 → 3SCARD 12-08 10:44
PROVIDERS: ADMIT Internal Medicine; ATTEND Internal Medicine
PROC: 3E043XZ Introduction of Vasopressor into Central Vein, Percutaneous Approach (ICD-10-PCS; principal; 2022-12-07 08:30)
PROC: 4A023N7 Measurement of Cardiac Sampling and Pressure, Left Heart, Percutaneous Approach (ICD-10-PCS; principal; 2022-12-07 08:30)
PROC: 027036Z Dilation of Coronary Artery, One Artery with Three Drug-eluting Intraluminal Devices, Percutaneous Approach (ICD-10-PCS; principal; 2022-12-07 08:30)
PROC: B2111ZZ Fluoroscopy of Multiple Coronary Arteries using Low Osmolar Contrast (ICD-10-PCS; principal; 2022-12-07 08:30)
DX: I21.19 ST elevation (STEMI) myocardial infarction involving other coronary artery of inferior wall (principal); C34.31 Malignant neoplasm of lower lobe, right bronchus or lung; I44.2 Atrioventricular block, complete; N17.9 Acute kidney failure, unspecified; Z87.891 Personal history of nicotine dependence; E78.5 Hyperlipidemia, unspecified; Z28.310 Unvaccinated for COVID-19; Z28.21 Immunization not carried out because of patient refusal; I95.9 Hypotension, unspecified; I25.2 Old myocardial infarction; R00.1 Bradycardia, unspecified; I10 Essential (primary) hypertension; I25.10 Atherosclerotic heart disease of native coronary artery without angina pectoris; J43.9 Emphysema, unspecified; Z86.73 Personal history of transient ischemic attack (TIA), and cerebral infarction without residual deficits; Z79.01 Long term (current) use of anticoagulants
CPT/HCPCS: 33210; 36415; 71045; 80048; 80053; 80061; 83735; 84484; 85025; 85610; 85730; 93005; 93306; 94640; 96374; 99291

== ENCOUNTER 2022-12-12 12:54 | Emergency (ER) | payer OTHER ==
[2022-12-12 13:03] VITALS: BP 122/78; PULSE 110; RESP 18; TEMP 97.5
[2022-12-12] MEDS ORDERED: AMOXIC-POT CLAV 875-125MG 1 EACH TAB PO STA (13:13)
[2022-12-12] MEDS ORDERED: DIPH,PERTUS(ACELL)TETVAC-LF 0.5 ML VIAL IM ONE (13:20)
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
== END 2022-12-12 13:44 | disposition home or self-care (01) ==
LOC: EC 12:54
DX: S51.851A Open bite of right forearm, initial encounter (principal); I25.2 Old myocardial infarction; J43.9 Emphysema, unspecified; F17.200 Nicotine dependence, unspecified, uncomplicated; Z23 Encounter for immunization; Z79.01 Long term (current) use of anticoagulants; Z79.899 Other long term (current) drug therapy; Z95.5 Presence of coronary angioplasty implant and graft; Z86.73 Personal history of transient ischemic attack (TIA), and cerebral infarction without residual deficits; W55.01XA Bitten by cat, initial encounter
CPT/HCPCS: 90471; 90715; 99283

== ENCOUNTER → 2023-04-18 | Outpatient (CLI) | payer MEDICARE, OTHER ==
--- NOTE | 2023-04-18 15:42 | XR ---
EXAMINATION TYPE: XR chest 2V DATE OF EXAM: 04/18/2023 COMPARISON: 12/07/2022 HISTORY: 62-year-old male R05.9 shortness of breath, cough for one week TECHNIQUE: Frontal and lateral views FINDINGS: Heart normal size. Aorta and pulmonary vasculature are within normal limits. Patchy medial right lowe r lung opacity is improving from prior. Hyperinflation. No pleural effusion. IMPRESSION: COPD. There is some focal medial right lower lung opacity that could represent an area of pleural par enchymal scarring/post treatment change. Correlate clinically to exclude a superimposed underlying in filtrate.
== END | disposition home or self-care (01) ==
LOC: RADXRMAIN 12:11
PROVIDERS: ATTEND Internal Medicine
DX: J44.9 Chronic obstructive pulmonary disease, unspecified (principal); R91.8 Other nonspecific abnormal finding of lung field
CPT/HCPCS: 71046

== ENCOUNTER → 2023-04-27 | Outpatient (CLI) | payer MEDICARE, OTHER ==
--- NOTE | 2023-04-27 11:33 | XR ---
EXAMINATION TYPE: XR chest 2V DATE OF EXAM: 04/27/2023 COMPARISON: 04/28/2023 TECHNIQUE: PA and lateral views submitted. HISTORY: Follow-up pneumonia FINDINGS: Near complete resolution of right perihilar infiltrate with minimal residual linear changes most typi heather of scarring or resolving infiltrate. A tiny granuloma left upper lobe. Underlying COPD.. Heart s ize normal and no overt failure. Osseous structures demonstrate hypertrophic and degenerative changes of the spine. Coronary stenting suggested. IMPRESSION: 1. COPD with interval near complete resolution of right perihilar pneumonia.
== END | disposition home or self-care (01) ==
LOC: RADXRMAIN 10:41
PROVIDERS: ATTEND Internal Medicine
DX: J44.9 Chronic obstructive pulmonary disease, unspecified (principal); J18.9 Pneumonia, unspecified organism
CPT/HCPCS: 71046

== ENCOUNTER 2023-05-19 08:11 | Day surgery (SDC) | payer OTHER ==
[~2023-05-19 08:11] MED LIST changes: -ALBUTEROL NEB (CONC) 2.5 MG/0.5 ML INHALATION ONE; +ALPRAZolam 0.25 MG TAB PO PRN; +ALPRAZolam 0.5 MG TAB PO PRN; -LIDOCAINE 2% (PF) 20 MG/ML 5 ML VIAL INHALATION ONE; -LIDOCAINE VISCOUS 300 MG/15 ML CUP MUCOUS MEM ONE; +NITROGLYCERIN SL TABS 0.4 MG TAB SUBLINGUAL PRN; -SODIUM CHLORIDE 0.9% 1,000 ML IV SCH
[2023-05-19] MEDS: SODIUM CHLORIDE 0.9% 1,000 ML in EMPTY BAG 1 BAG IV SCH ×2 (08:55→14:16)
[2023-05-19 09:27] LABS: African American GFR (CKD) 88 (>60 ml/min/1.73 sqM); Anion Gap 4 mmol/L; Blood Urea Nitrogen 16 mg/dL (9-20); Calcium 9.2 mg/dL (8.4-10.2); Carbon Dioxide 27 mmol/L (22-30); Chloride 104 mmol/L (98-107); Glucose 91 mg/dL (74-99); Non-African American GFR(CKD) 76 (>60 ml/min/1.73 sqM); Potassium 4.5 mmol/L (3.5-5.1); Sodium 135 mmol/L (137-145)
[2023-05-19 09:39] LABS: Basophils % (A) 0 %; Eosinophils # (A) 0.8 k/uL (0-0.7); Eosinophils % (A) 10 %; HCT 44.9 % (39.0-53.0); HGB 15.3 gm/dL (13.0-17.5); Lymphocytes # (A) 1.2 k/uL (1.0-4.8); Lymphocytes % (A) 13 %; MCH 31.9 pg (25.0-35.0); MCHC 33.9 g/dL (31.0-37.0); Mean Platelet Volume 7.9; Monocytes # (A) 0.5 k/uL (0-1.0); Monocytes % (A) 6 %; Neutrophils % (A) 69 %; Platelet Count 218 k/uL (150-450); RBC 4.78 m/uL (4.30-5.90); RDW 14.4 % (11.5-15.5); WBC 8.8 k/uL (3.8-10.6)
[2023-05-19] MEDS ORDERED: HEPARIN SODIUM 1,000 UN/ML (10ML VL) ONE (09:49)
[2023-05-19] MEDS ORDERED: fentaNYL (PF) 50 MCG/ML 2 ML AMP ONE (09:49)
[2023-05-19] MEDS ORDERED: LIDOCAINE 1% INJ 10MG/ML (20 ML MDV) ONE (09:49)
[2023-05-19] MEDS ORDERED: VERAPAMIL 2.5 MG/ML 2 ML AMP ONE (09:49)
[2023-05-19] MEDS: fentaNYL (PF) 50 MCG/ML 2 ML AMP IVP ONE (10:07)
[2023-05-19] MEDS: LIDOCAINE 1% INJ 10MG/ML (20 ML MDV) SQ ONE (10:08)
[2023-05-19] MEDS: VERAPAMIL SYRINGE (5 MG/10 ML) INTRAARTER ONE (10:11)
[2023-05-19] MEDS: HEPARIN SODIUM 1,000 UN/ML (10ML VL) IVP ONE ×2 (10:14→10:25)
[2023-05-19] MEDS: MIDAZOLAM 2 MG/2 ML VIAL IVP ONE ×2 (10:24→11:19)
[2023-05-19] MEDS: IOPAMIDOL-370 100ML BTL INJ ONE ×3 (10:36→11:24)
[2023-05-19] MEDS: NITROGLYCERIN 1000MCG/10ML SYRINGE INTRACORON ONE (10:43)
[2023-05-19] MEDS: SODIUM CHLORIDE 0.9% 1,000 ML IV ONE (11:33)
[2023-05-19] MEDS ORDERED: ATROPINE SULFATE 0.1 MG/ML 10ML SYRINGE IV PRN (11:38)
[2023-05-19] MEDS ORDERED: ZOLPIDEM 5 MG TAB PO PRN (11:38)
[2023-05-19] MEDS ORDERED: RX INFO: IV CONTRAST WAS GIVEN 1 EACH MISC MISCELLANE PRN (11:38)
[2023-05-19] MEDS ORDERED: MAG HYDROX/AL HYDROX/SIMETH 30 ML CUP PO PRN (11:38)
[2023-05-19] MEDS ORDERED: NITROGLYCERIN SL TABS 0.4 MG TAB SUBLINGUAL PRN (11:38)
--- NOTE | 2023-05-19 11:54 | P.CARDCATH ---
Date of Procedure: 05/19/23 Description of Procedure: Cardiac Catheterization: The patient is a 62-year-old male with known history of hyperlipidemia, chronic tobacco use, lung cancer who presented in November 2022 with an acute inferior myocardial infarction, complicated by complete heart block. Underwent stenting of the RCA and presented at this time with symptoms of recurrent chest discomfort, exertional in pattern. Recommendations were made regarding cardiac catheterization, the risks and the complications were discussed with the patient who is in full understanding and agreement. Procedure Description: Patient was brought to livestock laborer in fasting semi-sedated state after receiving Fentanyl and Benadryl achieiving moderate conscious sedated state. Using Xylocaine Anesthesia and modified Seldinger technique, a 6-[place] sheath was introduced in the right radial artery . Subsequently, selective coronary angiography was performed using a 5-[place] 3.5 bend Ora catheter. Multiple views of the coronary artery including hemiaxial views were obtained. The 5 [place] right Ora catheter was used to cross the aortic valve and LVEDP was calculated. PCI: After removing the catheters a 6 [place] AL 0.75 guiding catheter was introduced into the system and after cannulating the right coronary ostium 0.014 BMW J-wire was positioned in the distal PLV. Subsequently a 2.25 x 12 mm NC trek was advanced and multiple inflations were done at 8 rosalva. Subsequently a [employer] [place] eye IVUS catheter was introduced and images were obtained. After removing the catheters 3.0 x 15 mm NC trek was advanced and inflations in the PLV were done. Subsequently a 4.0 x 18 mm Xience jw point was deployed in the proximal segment at 16 rosalva and after removing the balloon another 4.0 x 18 mm Xience jw point was deployed distal to the first 1 at 16 rosalva. After removing the balloon a 4.0 x 20 mm NC trek was advanced and inflation in the mid, distal and proximal RCA were done at 12 rosalva. After removing the balloon a 4.0 x 12 mm Xience jw point was deployed distally at 16 rosalva. Repeat IVUS was performed. Following that the wire was removed images were obtained and revealed stable successful stenting. The patient had further chest discomfort at that time the 5 [place] 3.5 right Ora was reintroduced into the system and repeat images were performed and revealed successful stenting with good flow.Following that, catheter and sheath were removed. Hemostasis was obtained with deployment of vascular band . There was no immediate complication. Patient was returned to room in stable condition. Of note, the patient received a total of 5500 units of intravenous heparin as well as intra-arterial verapamil. He was continued on clopidogrel. He had EKG changes that resolved and his chest discomfort improved at the end of the procedure. Findings: Left main: This is a large size vessel, bifurcating into LAD and left circumf miller, left main has no obstructive disease LAD: This is a large size vessel, reaching to the apex with a wraparound apex segment giving rise to moderately sized diagonal branch. The mid LAD has a 20% plaque, the rest of the vessel has no high-grade stenosis Left circumflex: This is a nondominant vessel giving rise to a large obtuse marginal branch. The left circumflex has mild intimal disease of 20% with no high-grade stenosis. RCA: This is a large dominant vessel bifurcating into PDA and PLV. The distal RCA has a 50 to 60% stenosis. The PLV has a 90% stenosis. There is a 60 to 70% plaque at the takeoff of the PDA. Left Ventriculogram: Not performed Hemodynamics: There was no gradient across aortic valve, LVEDP was 8-12 mmHg Conclusion: 1. In-stent restenosis in the right PLV with moderate disease in the distal RCA 2. Mild disease in the LAD and left circumflex 3. Normal LVEDP 4. Successful stenting of the proximal and distal RCA and angioplasty of the right PLV with reduction of the stenosis in the PLV from 90% to less than 5% with adjunctive IVUS imaging. Recommendations: The patient will continue on aspirin and clopidogrel with no interruption for 6 months in addition to aggressive coronary risks modification and smoking cessation. Attempt to maintain LDL below 70 mg/dL will be continued. The findings and the recommendations were discussed with the patient and the family and they were in full understanding and agreement. Duration of sedation is 76 minutes.
[2023-05-19] MEDS: ASPIRIN 325 MG TAB PO STA (12:33)
[2023-05-19] MEDS: NICOTINE 21MG/24HR PATCH TRANSDERM STA (13:06)
[2023-05-19 15:07] VITALS: BMI 24.7
[2023-05-19] MEDS: ATORVASTATIN 80 MG TAB PO SCH (20:29)
[2023-05-20 00:44] VITALS: RESP 16
[2023-05-20] MEDS: FINASTERIDE 5 MG TAB PO SCH (08:50)
[2023-05-20] MEDS: TAMSULOSIN 0.4 MG CAP.ER.24H PO SCH (08:50)
[2023-05-20] MEDS: ASPIRIN 81 MG PO SCH (08:50)
[2023-05-20] MEDS: CLOPIDOGREL 75 MG TAB PO SCH (08:50)
--- NOTE | 2023-05-20 09:17 | P.PN ---
Subjective Progress Note Date: 05/20/23 PROGRESS NOTE The patient is a 62-year-old male with a known history of CAD post stenting who presented with symptoms of angina pectoris underwent cardiac catheterization was found to have significant disease in the right PLV and underwent angioplasty and stenting. He is doing well this morning. He has very sharp brief episode of chest discomfort otherwise he feels that his breathing and energy are better. He denies any dizziness, palpitations or syncope. He has no PND or orthopnea. He continues to be in sinus mechanism. Medications: Aspirin, Lipitor 80 mg daily, Eliquis 5 mg twice a day, Avodart, Plavix 75 mg daily, Flomax 0.4 mg daily PHYSICAL EXAMINATION: Blood pressure 135/70 heart rate 80 LUNGS: Clear to auscultation HEART: Regular rate and rhythm, S1, S2. No S3. Systolic ejection murmur ABDOMEN: Soft, nontender, no organomegaly EXTREMETIES: No edema, right radial pulse intact LAB: EKG shows sinus mechanism with no acute ST segment changes. IMPRESSION: 1. Status post stenting and angioplasty of the RCA 2. Status post inferior myocardial infarction in 2022 complicated by complete heart block 3. History of hyperlipidemia 4. History of lung cancer PLAN: 1. Reviewed lab data 2. If renal function stable discharge home today 3. Continue aspirin and Plavix for 1 week then stop aspirin continue Plavix and Eliquis 4. Follow-up in 1 week Objective - Vital Signs Vital signs: Vital Signs Temp 97.5 F L 05/20/23 08:00 Pulse 80 05/20/23 08:00 Resp 16 05/20/23 08:00 BP 135/72 05/20/23 08:00 Pulse Ox 95 05/20/23 08:03 FiO2 Intake & Output 05/19/23 05/20/23 05/20/23 18:59 06:59 18:59 Intake Total 1700 Output Total 800 Balance 900 Weight 65.4 kg Intake: IV 1700 Output: Urine 800 Other: Voiding Method Toilet Urinal # Voids 3 - Labs CBC & Chem 7: 05/19/23 08:55 05/19/23 08:55 Labs: Abnormal Lab Results - Last 24 Hours (Table) 05/19/23 05/19/23 Range/Units 08:55 08:55 Eosinophils # 0.8 H (0-0.7) k/uL Sodium 135 L (137-145) mmol/L
[2023-05-20 09:21] VITALS: BP 135/72; PULSE 80; TEMP 97.5
[2023-05-20 09:50] LABS: African American GFR (CKD) >90 (>60 ml/min/1.73 sqM); Anion Gap 5 mmol/L; Blood Urea Nitrogen 14 mg/dL (9-20); Calcium 8.8 mg/dL (8.4-10.2); Carbon Dioxide 23 mmol/L (22-30); Chloride 109 mmol/L (98-107); Glucose 82 mg/dL (74-99); Non-African American GFR(CKD) >90 (>60 ml/min/1.73 sqM); Potassium 3.9 mmol/L (3.5-5.1); Sodium 137 mmol/L (137-145)
== END 2023-05-20 11:11 | disposition home or self-care (01) ==
LOC: CATHCVL 08:11 → 3SCARD 12:31 → CATHCVL 05-20 11:11
PROVIDERS: ATTEND Internal Medicine Interventional Cardiology
DX: I25.119 Atherosclerotic heart disease of native coronary artery with unspecified angina pectoris (principal); E78.5 Hyperlipidemia, unspecified; Z79.01 Long term (current) use of anticoagulants; Z79.02 Long term (current) use of antithrombotics/antiplatelets; Z79.82 Long term (current) use of aspirin; Z79.899 Other long term (current) drug therapy; Z95.5 Presence of coronary angioplasty implant and graft
CPT/HCPCS: 94760; 92978; 93458; 92921; 80048 ×2; 85025; C9600; C1769 ×3; C1894; C1753; C1874 ×2; C1887; C1725 ×3; S4990; S0138; J2250; J2001; J3010; J1644; Q9967; J2305

== ENCOUNTER → 2023-05-25 | Outpatient (CLI) | payer OTHER ==
[2023-05-25 13:07] LABS: African American GFR (CKD) >90 (>60 ml/min/1.73 sqM); Blood Urea Nitrogen 14 mg/dL (9-20); Non-African American GFR(CKD) 87 (>60 ml/min/1.73 sqM)
--- NOTE | 2023-05-25 15:06 | CT ---
EXAMINATION: CT CHEST, ABDOMEN AND PELVIS WITH IV CONTRAST DATE OF EXAMINATION: 05/25/2023. COMPARISON: 12/30/2022.. INDICATION: Follow-up for lung cancer PROCEDURE: Axial CT of the chest, abdomen and pelvis was performed following the intravenous adminis tration of 100 ml Isovue 300. Coronal and sagittal reformats were performed. CT dose lowering techni ques were used, to include: automated exposure control, adjustment for patient size, and/or use of it erative reconstruction. FINDINGS: CHEST: Mediastinum and Dejah: Abnormal soft tissue thickening within the right hilar region as well as parenc hymal changes within the right hilar region related to treatment changes and appear likely similar to the previous examination. There is enlarged right suprahilar lymph node measuring up to 1.8 cm in sh ort axis diameter which is unchanged. Residual disease should be a consideration in this location as there is also some obstruction of the right lower lobe bronchus atelectasis of the right lower lobe. This appears very similar to the previous examination where there is a masslike opacity in this regio n which measures approximately 3 cm in maximum diameter. This is difficult to assess due to the atele ctasis. Calcified lymph nodes are seen within the left hilar region. Pleural and Pericardial spaces: There is a moderate right pleural effusion. Cardiovascular: The thoracic aorta is normal in size without evidence of aneurysm or dissection. Ther e are severe diffuse coronary artery calcifications. Pulmonary Artery: There are no central pulmonary arterial filling defects. Lung Parenchyma and Airways: Mild diffuse centrilobular emphysema. There is mild patchy parenchymal c hanges within the posterior aspect of the left upper lobe which are unchanged. Small calcified granul ping in the left lower lobe is unchanged. The left lung otherwise appears clear. ABDOMEN: Liver and Biliary system: Normal. Adrenal glands: Normal. Kidneys and ureters: Normal. Spleen: Multiple calcified granulomas are seen within the spleen. Pancreas: Normal. Gallbladder: Normal. Lymph nodes, Peritoneum and mesentery: There is no mesenteric or retroperitoneal lymphadenopathy. Gastrointestinal tract: There are no dilated loops of bowel or free intraperitoneal air. . The appe ndix is normal. Aorta/IVC: There is significant vascular calcification throughout the abdominal aorta without evide nce of aneurysmal dilation or dissection.. IVC normal. Abdominal wall: Normal. PELVIS: Fluid: There is no free fluid in the pelvis. Lymph Nodes: There is no pelvic or inguinal lymphadenopathy.. Urinary bladder: Normal. BONES: Some lesion within the bowel 5 vertebral body measures 2.4 cm in diameter and is similar to t he previous examination and could represent a metastasis. ADDITIONAL SIGNIFICANT FINDINGS: There is a moderate-sized left inguinal hernia containing a portio n of the sigmoid colon.. IMPRESSION: 1. Similar appearance to the soft tissue densities within the right hilar and infrahilar regions coul d represent residual disease. 2. Lucent lesion within the L5 vertebral body is unchanged. 3. Emphysema. 4. Coronary artery calcifications. 5. Left inguinal hernia. 6. Evidence of prior granulomatous disease. 7. Moderate right pleural effusion.
== END | disposition home or self-care (01) ==
LOC: RADCTMAIN 12:04
PROVIDERS: ATTEND Internal Medicine
DX: C34.31 Malignant neoplasm of lower lobe, right bronchus or lung (principal); J43.9 Emphysema, unspecified; I25.10 Atherosclerotic heart disease of native coronary artery without angina pectoris; K40.90 Unilateral inguinal hernia, without obstruction or gangrene, not specified as recurrent; J90 Pleural effusion, not elsewhere classified; M89.9 Disorder of bone, unspecified
CPT/HCPCS: 82565; 84520; 71260; 74177; 36415; Q9967

== ENCOUNTER 2023-08-18 07:48 | Inpatient (IN) | payer MEDICARE, OTHER ==
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
[2023-08-18 09:10] LABS: Basophils # (A) 0.1 k/uL (0-0.2); Basophils % (A) 1 %; Eosinophils # (A) 0.6 k/uL (0-0.7); Eosinophils % (A) 6 %; HCT 46.7 % (39.0-53.0); HGB 15.1 gm/dL (13.0-17.5); Lymphocytes % (A) 11 %; MCH 32.3 pg (25.0-35.0); MCHC 32.4 g/dL (31.0-37.0); MCV 99.8 fL (80.0-100.0); Macrocytosis Slight; Monocytes # (A) 0.5 k/uL (0-1.0); Monocytes % (A) 5 %; Neutrophils # (A) 6.6 k/uL (1.3-7.7); Neutrophils % (A) 74 %; Platelet Count 236 k/uL (150-450); RBC 4.68 m/uL (4.30-5.90); RDW 14.5 % (11.5-15.5); WBC 8.9 k/uL (3.8-10.6)
[2023-08-18 09:24] LABS: ALT 11 U/L (4-49); AST 24 U/L (17-59); African American GFR (CKD) >90 (>60 ml/min/1.73 sqM); Alkaline Phosphatase 72 U/L (38-126); Anion Gap 5 mmol/L; Blood Urea Nitrogen 20 mg/dL (9-20); Calcium 9.2 mg/dL (8.4-10.2); Carbon Dioxide 23 mmol/L (22-30); Chloride 105 mmol/L (98-107); Glucose 95 mg/dL (74-99); Magnesium 1.9 mg/dL (1.6-2.3); Non-African American GFR(CKD) 85 (>60 ml/min/1.73 sqM); Potassium 4.4 mmol/L (3.5-5.1); Sodium 133 mmol/L (137-145)
[2023-08-18 09:33] LABS: INR 0.9 (<1.2); Prothrombin Time 10.3 sec (10.0-12.5)
[2023-08-18 09:34] LABS: Partial Thromboplastin Time 26.4 sec (22.0-30.0)
[2023-08-18] MEDS: SODIUM CHLORIDE 0.9% 500 ML 500 ML IV STA (09:55)
--- NOTE | 2023-08-18 10:17 | CT ---
EXAMINATION TYPE: CT chest angio for PE DATE OF EXAM: 08/18/2023 COMPARISON: 05/25/2023 HISTORY: 62-year-old male Hemoptysis. History of ca TECHNIQUE: Contiguous axial scanning of the chest performed with IV Contrast, patient injected with 8 0ml mL of Isovue 370. Coronal and sagittal MIP reconstructions performed. CT DLP: 283.3 mGycm Automated exposure control for dose reduction was used. FINDINGS: The heart is normal size without pericardial effusion. No flattening of the interventricular septum. Prominent refluxing contrast into the hepatic veins. There appears to be in RCA coronary stent. Calci fications within the proximal LAD are noted. Mild atherosclerotic arch calcifications. Conventional arch vessel branching anatomy. There is satisfactory opacification of the pulmonary arterial system. Exam positive for pulmonary emb olus at the branch point of the right main pulmonary artery extending into the right lower lobar and a couple in mental/subsegmental branches. No progressive thoracic lymphadenopathy seen. Unchanged mild soft tissue encasement of the right hilum with volume loss and peribronchovascular con solidation extending down the posterior right infrahilar region and medial right lower lobe. Masslike subpleural opacity here continues to measure up to 4.9 cm inferiorly and 2.9 cm more superiorly. Valdez e associated cavitation is unchanged. There is a residual small right pleural effusion, decreased from previous. [id number] bronchial wall thickening is present throughout. Moderate emphysema. A couple spiculated opacities in the upper lobes measuring 5 mm on the right and 1.0 cm on the left r emain unchanged. 4 mm right midlung pulmonary nodule, axial image 87 is unchanged. Small hiatal hernia. Calcified granulomas in the spleen. Moderate atherosclerotic calcifications abdo antwan aorta. Renal cortical cysts measuring up to 1.7 cm on the left. Bones: No vertebral compression collapsing. IMPRESSION: 1. EXAM POSITIVE FOR PULMONARY EMBOLUS. MILD BURDEN OF CLOT INVOLVING THE BRANCH POINT OF THE RIGHT M AIN PULMONARY ARTERY EXTENDING INTO THE RIGHT LOWER LOBAR AND A COUPLE SEGMENTAL/SUBSEGMENTAL BRANCHE S. NO CT FINDINGS OF RIGHT HEART STRAIN. CRITICAL FINDINGS CALLED TO DR. GREENE IN THE ER AT 10:00 AM. 2. COPD WITH MODERATE EMPHYSEMA. THERE IS SIMILAR SOFT TISSUE ENCASEMENT OF THE RIGHT HILUM AND DARRICK GUOUS OPACITY EXTENDING DOWN THE SUBPLEURAL RIGHT LOWER LOBE. SOME INTERNAL AIR CAVITATION IS SIMILAR WELL. STABLE RESIDUAL DISEASE VERSUS SITE OF TREATED DISEASE REMAIN IN THE DIFFERENTIAL. 3. RESIDUAL SMALL RIGHT PLEURAL EFFUSION, DECREASED FROM PRIOR. 4. COUPLE SPICULATED NODULES IN THE UPPER LOBES MEASURING 1 CM ON THE LEFT AND 5 MM ON THE RIGHT CELIA IN UNCHANGED.
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
[2023-08-18] MEDS ORDERED: DIPHENOX-ATROP STARTER PACK 8 TAB BTL PO PRN (11:02)
[2023-08-18] MEDS: HEPARIN SOD,PORK IN 0.45% NACL 25,000 UNIT in 0.45% NACL 1 250ML.BAG IV SCH (12:04)
[2023-08-18] MEDS: HEPARIN SODIUM 1,000 UN/ML (10ML VL) IV ONE (12:05)
[2023-08-18] MEDS: SODIUM CHLORIDE 0.9% 1,000 ML IV ONE (12:20)
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
--- NOTE | 2023-08-18 17:45 | US ---
EXAMINATION TYPE: US venous doppler duplex LE BI DATE OF EXAM: 08/18/2023 5:33 PM COMPARISON: NONE CLINICAL INDICATION: Male, 62 years old with history of PE, baseline study; PE, pt states h/o lung CA SIDE PERFORMED: Bilateral TECHNIQUE: The lower extremity deep venous system is examined utilizing real time linear array sonog mihir with graded compression, doppler sonography and color-flow sonography. VESSELS IMAGED: Common Femoral Vein Deep Femoral Vein Greater Saphenous Vein * Femoral Vein Popliteal Vein Small Saphenous Vein * Proximal Calf Veins (* superficial vessels) Right Leg: Negative for DVT Left Leg: Negative for DVT IMPRESSION: No evidence for DVT within the bilateral lower extremities imaged from the groin to the upper calves.
[2023-08-19 07:29] LABS: Basophils # (A) 0.1 k/uL (0-0.2); Basophils % (A) 1 %; Eosinophils # (A) 0.4 k/uL (0-0.7); Eosinophils % (A) 6 %; HCT 43.1 % (39.0-53.0); HGB 13.7 gm/dL (13.0-17.5); Lymphocytes # (A) 1.1 k/uL (1.0-4.8); Lymphocytes % (A) 17 %; MCH 32.3 pg (25.0-35.0); MCHC 31.9 g/dL (31.0-37.0); MCV 101.4 fL (80.0-100.0); Macrocytosis Slight; Mean Platelet Volume 8.1; Monocytes # (A) 0.4 k/uL (0-1.0); Monocytes % (A) 7 %; Neutrophils # (A) 4.4 k/uL (1.3-7.7); Neutrophils % (A) 68 %; Platelet Count 213 k/uL (150-450); RBC 4.25 m/uL (4.30-5.90); RDW 14.5 % (11.5-15.5); WBC 6.4 k/uL (3.8-10.6)
[2023-08-19 07:43] LABS: ALT 9 U/L (4-49); AST 20 U/L (17-59); African American GFR (CKD) >90 (>60 ml/min/1.73 sqM); Albumin 3.1 g/dL (3.5-5.0); Alkaline Phosphatase 68 U/L (38-126); Anion Gap 2 mmol/L; Blood Urea Nitrogen 18 mg/dL (9-20); Calcium 8.4 mg/dL (8.4-10.2); Carbon Dioxide 23 mmol/L (22-30); Chloride 110 mmol/L (98-107); Glucose 89 mg/dL (74-99); Non-African American GFR(CKD) 88 (>60 ml/min/1.73 sqM); Potassium 4.2 mmol/L (3.5-5.1); Sodium 135 mmol/L (137-145); Total Bilirubin 0.5 mg/dL (0.2-1.3); Total Protein 5.7 g/dL (6.3-8.2)
[2023-08-19] MEDS: ISOSORBIDE MONONITRATE ER 30 MG TAB.ER.24H PO SCH (09:13)
[2023-08-19] MEDS: CLOPIDOGREL 75 MG TAB PO SCH (09:13)
[2023-08-19] MEDS: PANTOPRAZOLE 40 MG TABLET PO SCH (09:14)
--- NOTE | 2023-08-19 11:42 | P.PN ---
Subjective Progress Note Date: 08/19/23 Principal diagnosis: Acute pulmonary embolism, and history of advanced stage non-small cell lung cancer, on immunotherapy. This is a very pleasant 62-year-old male patient with a history of coronary artery disease with multiple stent placements, COPD, former smoker, TIA squamous cell lung cancer, advanced stage, diagnosed in October 2021 on immunotherapy in the form of Opdivo and Yervoy. He also had a pulmonary embolism approximately 1 year ago and has been maintained on Eliquis 5 mg twice daily. At approximately 3:00 this morning the patient woke up coughing and congested. He realized he was coughing up blood. He had some substernal chest discomfort and presented here this morning for the same. CT angiogram was positive for pulmonary embolus, mild burden of clot involving the branch point of the right main pulmonary artery extending into the right lower lobar and a couple segmental/subsegmental branches. No evidence of right heart strain on CT. There is noted COPD with moderate emphysema. Similar soft tissue encasement of the right hilum and contiguous opacity extending down the subpleural and right lower lobe. Some internal air cavitation is similar as well. Stable residual disease versus site of distal treated disease remains on the differential. Mild right pleural effusion. Couple spiculated nodules in the upper lobes measuring 1 cm on the left and 5 mm on the right unchanged. This is compared to a CAT scan from May 2023. No central pulmonary arterial filling defects were noted at that time. White count 8.9. Hemoglobin 15.1. Platelets 236. Sodium 133. Potassium 4.4. Bicarb 23. BUN 20. Creatinine 0.95. Viral screen negative. He is seen in the emergency department in consultation. He is sitting up on a stretcher. Awake and alert in no acute distress. He is maintaining O2 saturations in the 90s on room air. He denies any worsening chest discomfort. No shortness of breath. No further hemoptysis. He has been initiated on a heparin drip. Patient was reevaluated today on 08/19/2023, patient is doing well, he is now on room air, not in distress, he does have and continues to have some occasional episodes of minimal hemoptysis. Remains on heparin. PTT today is 62.9, it is surprising to me that the patient has been on Eliquis all along, and he developed pulmonary embolism. I am recommending hematologic evaluation, and possibly transition from Eliquis to Lovenox as the drug of choice for treatment of his pulmonary embolism since the patient is considered to have failed therapy with Eliquis. Patient has not been seen by hematology at this point yet. And if the patient continues to have hemoptysis, may not be a bad idea to consider bronchoscopy and airways evaluation to make sure that he is not bleeding from his malignancy. Clinically the patient is doing great, hemoglobin today is 13.7 WBC count is 6.4 basic metabolic profile is normal renal profile is normal Objective - Vital Signs Vital signs: Vital Signs Temp 98.3 F 08/19/23 08:00 Pulse 67 08/19/23 11:06 Resp 18 08/19/23 11:06 BP 106/60 08/19/23 08:00 Pulse Ox 98 08/19/23 08:00 FiO2 Intake & Output 08/18/23 08/19/23 08/19/23 18:59 06:59 18:59 Intake Total 723.755 358 Balance 723.755 358 Weight 67.132 kg 67.132 kg Intake: Intake, IV Titration 223.755 Amount Heparin Sod,Pork in 0.45% 223.755 NaCl 25,000 unit In 0.45 % NaCl 1 250ml.bag @ 18 UNITS/KG/HR 12.084 mls/hr IV .[id number] [facility] Rx#: [id number] Oral 500 358 Other: Voiding Method Toilet # Voids 1 - Exam GENERAL EXAM: Reveals 62-year-old white male in no distress HEAD: Normocephalic. EYES: Normal reaction of pupils, equal size. NOSE: Clear with pink turbinates. THROAT: No erythema or exudates. NECK: No masses, no JVD. CHEST: No chest wall deformity. LUNGS: Clear bilaterally no crackles rhonchi or wheezes CVS: S1 and S2 normal with no audible murmur, regular rhythm. ABDOMEN: No hepatosplenomegaly, normal bowel sounds, no guarding or rigidity. SKIN: No rashes CENTRAL NERVOUS SYSTEM: Alert and oriented x 3 no gross focal deficit EXTREMITIES: No clubbing edema or cyanosis. - Labs CBC & Chem 7: 08/19/23 06:42 08/19/23 06:42 Labs: Abnormal Lab Results - Last 24 Hours (Table) 08/18/23 08/19/23 08/19/23 Range/Units 18:13 06:42 06:42 RBC 4.25 L (4.30-5.90) m/uL MCV 101.4 H (80.0-100.0) fL APTT 61.7 H 62.9 H (22.0-30.0) sec Sodium (137-145) mmol/L Chloride (98-107) mmol/L Total Protein (6.3-8.2) g/dL Albumin (3.5-5.0) g/dL 08/19/23 Range/Units 06:42 RBC (4.30-5.90) m/uL MCV (80.0-100.0) fL APTT (22.0-30.0) sec Sodium 135 L (137-145) mmol/L Chloride 110 H (98-107) mmol/L Total Protein 5.7 L (6.3-8.2) g/dL Albumin 3.1 L (3.5-5.0) g/dL Assessment and Plan Assessment: Impression: Hemoptysis and shortness of breath secondary to acute pulmonary embolism. CT angiogram was positive for pulmonary embolus, mild burden of clot involving the branch point of the right main pulmonary artery extending into the right lower lobar and a couple segmental/subsegmental branches. No evidence of right heart strain on CT. Previous history of pulmonary emboli and the patient has been on Eliquis for approximately 1 year Advanced stage metastatic non-small cell carcinoma, squamous cell, diagnosed in October 2021. Currently on Opdivo and Yervoy History of chronic obstructive pulmonary diseasChronic tobacco dependence Coronary artery disease with review of stent placement History of CVA/TIA Recommendation: Continue heparin, as per protocol for pulmonary embolism Hematology/oncology to evaluate and decide on possibly changing Eliquis to Lovenox on outpatient basis as the drug of choice for treatment for him since he is considered to have failed Eliquis treatment Consider bronchoscopy and airways examination early next week if the patient continues to have episodes of hemoptysis. Continue bronchodilators and his home meds Will continue to follow Time with Patient: Less than 30
--- NOTE | 2023-08-19 14:14 | P.PN ---
Subjective Progress Note Date: 08/19/23 Rubén Young, is a 62-year-old male patientWho presented to the ER with concerns of coughing up blood. Patient has past medical history of lung cancer and pulmonary embolism and maintained on Eliquis. Patient reports he was diagnosed with lung cancer proximally 2 years ago and has received immunotherapy follows with Dr. Porras. Additional medical history includes COPD, CVA, hyperlipidemia, osteoarthritis, TIA and smoker.Chest CTA completed showing positive for pulmonary embolus, COPD with moderate emphysema residual small right pleural effusion and couple spiculated nodules in the upper lobes m easuring 1 cm on the left and 5 mm on the right remain unchanged.At this time patient will be admitted patient will be started on heparin drip. Hematology, pulmonary services will be consulted. Current vital signs temp 98.4, heart rate 83, respiratory rate 18, blood pressure 120/77 pulse ox 95% on room air. Lab work is unremarkableWhite blood cell 8.9, hemoglobin 15.1 troponin negative. Creatinine 0.95 bun 20. At this time patient denies chest pain or shortness of breath. Patient does report cough. Patient denies nausea vomiting or diarrhea. Patient denies any urinary burning or frequency On 08/19/2023 patient was seen and examined on the medical floor he is alert and oriented x 3 in no apparent distress he is complaining of cough and occasional blood with the sputum otherwise he denies any complaints there is no fever or chills no headache or dizziness no chest pain no shortness of breath no nausea or vomiting no abdominal pain no diarrhea no urinary symptoms. Currently he is maintained on IV heparin. Awaiting input from pulmonary and oncology. Objective - Vital Signs Vital signs: Vital Signs Temp 98.0 F 08/19/23 04:00 Pulse 68 08/19/23 04:00 Resp 19 08/19/23 04:00 BP 114/64 08/19/23 04:00 Pulse Ox 99 08/19/23 04:00 FiO2 Intake & Output 08/18/23 08/19/23 08/19/23 18:59 06:59 18:59 Intake Total 723.755 Balance 723.755 Weight 67.132 kg 67.132 kg Intake: Intake, IV Titration 223.755 Amount Heparin Sod,Pork in 0.45% 223.755 NaCl 25,000 unit In 0.45 % NaCl 1 250ml.bag @ 18 UNITS/KG/HR 12.084 mls/hr IV .[id number] [facility] Rx#: [id number] Oral 500 Other: Voiding Method Toilet # Voids 1 - Labs CBC & Chem 7: 08/19/23 06:42 08/19/23 06:42 Labs: Abnormal Lab Results - Last 24 Hours (Table) 08/18/23 08/19/23 08/19/23 Range/Units 18:13 06:42 06:42 RBC 4.25 L (4.30-5.90) m/uL MCV 101.4 H (80.0-100.0) fL APTT 61.7 H 62.9 H (22.0-30.0) sec Sodium (137-145) mmol/L Chloride (98-107) mmol/L Total Protein (6.3-8.2) g/dL Albumin (3.5-5.0) g/dL 08/19/23 Range/Units 06:42 RBC (4.30-5.90) m/uL MCV (80.0-100.0) fL APTT (22.0-30.0) sec Sodium 135 L (137-145) mmol/L Chloride 110 H (98-107) mmol/L Total Protein 5.7 L (6.3-8.2) g/dL Albumin 3.1 L (3.5-5.0) g/dL Assessment and Plan Assessment: 1. Pulmonary embolism 2. History of lung cancer patient has followed with Dr. Pennington and has received immunotherapy 3. History of Coronary artery disease with cardiac stents in December2022 4. History of previous pulmonary embolism. 5. Ongoing nicotine dependence 6. History of emphysema 7. History of TIA At this time patient will be admitted Pulmonary and oncology service is consulted Patient started on heparin drip Repeat labs ordered for am
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
--- NOTE | 2023-08-19 15:25 | CT ---
EXAMINATION TYPE: CT abdomen pelvis w con CT DLP: 631.7 mGycm, Automated exposure control for dose reduction was used. DATE OF EXAM: 08/19/2023 3:04 PM COMPARISON: 05/25/2023. 08/18/2023 CT chest, 05/25/2023, PET/CT 11/19/2021 CLINICAL INDICATION:Male, 62 years old with history of hx lung cancer, treatment response scan; hemop tysis x 36 hours, CTA chest completed yesterday. TECHNIQUE: Axial CT abdomen pelvis w con;Sagittal and coronal reformats were created on a separate w orkstation. Contrast used:100 mL of Isovue 300 with IV Contrast, (none if empty) Oral contrast used: without Oral Contrast (none if empty) FINDINGS: LOWER CHEST: Small right pleural effusion and cavitary/consolidation changes around the right infrahi lar region similar to prior 08/18/2023. ABDOMEN LIVER: Unremarkable GALLBLADDER AND BILE DUCTS: Nondistended gallbladder. PANCREAS: Unremarkable. SPLEEN: Scattered calcified granulomas. ADRENAL GLANDS: Unremarkable. KIDNEYS AND URETERS: No evidence of hydronephrosis or renal calculus. The ureters are unremarkable. Simple appearing left renal cysts. PELVIS BLADDER: Unremarkable REPRODUCTIVE: Prostate is enlarged in size measuring 4.5 cm in transverse dimension. ABDOMEN & PELVIS STOMACH AND BOWEL: No evidence of bowel obstruction. PERITONEUM/RETROPERITONEUM: No evidence of pneumoperitoneum or free fluid. VASCULATURE: Moderate atherosclerotic calcifications are present throughout the abdominal aorta and i ts branches. No evidence of aortic aneurysm. MUSCULOSKELETAL: No acute osseous abnormalities. Lucent lesion in the L5 vertebrae. Previously lesion was FDG avid in this region. LYMPH NODES: No gross evidence for lymphadenopathy. SOFT TISSUE/ABDOMINAL WALL: Left fat-containing inguinal hernia with loop of colon near the neck. IMPRESSION: 1. No evidence for acute abdominal process. 2. Suspected metastatic lesion at the L5 vertebrae vertebral body. This is increased in size from 03/2022 and similar to 05/25/2023. 3. Small right pleural effusion. 4. Cavitary lesion in the right pulmonary infrahilar region as described on 08/18/2023 CT. 5. Fat-containing left inguinal hernia.
--- NOTE | 2023-08-20 09:22 | P.PN ---
Subjective Progress Note Date: 08/20/23 Rubén Young, is a 62-year-old male patientWho presented to the ER with concerns of coughing up blood. Patient has past medical history of lung cancer and pulmonary embolism and maintained on Eliquis. Patient reports he was diagnosed with lung cancer proximally 2 years ago and has received immunotherapy follows with Dr. Porras. Additional medical history includes COPD, CVA, hyperlipidemia, osteoarthritis, TIA and smoker.Chest CTA completed showing positive for pulmonary embolus, COPD with moderate emphysema residual small right pleural effusion and couple spiculated nodules in the upper lobes m easuring 1 cm on the left and 5 mm on the right remain unchanged.At this time patient will be admitted patient will be started on heparin drip. Hematology, pulmonary services will be consulted. Current vital signs temp 98.4, heart rate 83, respiratory rate 18, blood pressure 120/77 pulse ox 95% on room air. Lab work is unremarkableWhite blood cell 8.9, hemoglobin 15.1 troponin negative. Creatinine 0.95 bun 20. At this time patient denies chest pain or shortness of breath. Patient does report cough. Patient denies nausea vomiting or diarrhea. Patient denies any urinary burning or frequency On 08/19/2023 patient was seen and examined on the medical floor he is alert and oriented x 3 in no apparent distress he is complaining of cough and occasional blood with the sputum otherwise he denies any complaints there is no fever or chills no headache or dizziness no chest pain no shortness of breath no nausea or vomiting no abdominal pain no diarrhea no urinary symptoms. Currently he is maintained on IV heparin. Awaiting input from pulmonary and oncology. On 08/20/2023 patient is alert and oriented x 3. Patient remains on IV heparin drip. Awaiting further recommendations from hematology and pulmonary services. Current vital signs Temp 98.0, heart rate 67, respiratory rate 18, blood pressure 135/75 with a pulse ox of 96%. Patient denies chest pain. Patient reports occasional shortness of breath. Patient denies nausea vomiting or diarrhea. Patient denies any urinary burning or frequency Objective - Vital Signs Vital signs: Vital Signs Temp 98 F 08/20/23 08:00 Pulse 67 08/20/23 08:00 Resp 18 08/20/23 08:00 BP 135/75 08/20/23 08:00 Pulse Ox 96 08/20/23 08:00 FiO2 Intake & Output 08/19/23 08/20/23 08/20/23 18:59 06:59 18:59 Intake Total 834 246.715 Balance 834 246.715 Intake: Intake, IV Titration 246.715 Amount Heparin Sod,Pork in 0.45% 246.715 NaCl 25,000 unit In 0.45 % NaCl 1 250ml.bag @ 18 UNITS/KG/HR 12.084 mls/hr IV .[id number] [facility] Rx#: [id number] Oral 834 Other: Voiding Method Toilet # Voids 2 - Exam Head normocephalic Neck supple Lungs clear to auscultation bilaterally no wheezing or crackles Heart regular rate and rhythm S1-S2, no rub or gallop Abdomen is soft nontender nondistended positive bowel sounds no hepatosplenomegaly Extremities no edema Neuro alert and orientated to 3 - Labs CBC & Chem 7: 08/19/23 06:42 08/19/23 06:42 Labs: Microbiology - Last 24 Hours (Table) 08/18/23 09:38 Blood Culture - Preliminary Blood Assessment and Plan Assessment: 1. Pulmonary embolism 2. History of lung cancer patient has followed with Dr. Pennington and has received immunotherapy 3. History of Coronary artery disease with cardiac stents in December2022 4. History of previous pulmonary embolism. 5. Ongoing nicotine dependence 6. History of emphysema 7. History of TIA At this time patient will be admitted Pulmonary and oncology service is consulted Patient started on heparin drip Repeat labs ordered for am
[2023-08-20 09:28] LABS: Basophils # (A) 0.1 k/uL (0-0.2); Basophils % (A) 1 %; Eosinophils # (A) 0.5 k/uL (0-0.7); Eosinophils % (A) 7 %; HCT 41.4 % (39.0-53.0); HGB 13.2 gm/dL (13.0-17.5); Lymphocytes # (A) 0.8 k/uL (1.0-4.8); Lymphocytes % (A) 12 %; MCH 32.3 pg (25.0-35.0); MCHC 31.9 g/dL (31.0-37.0); MCV 101.5 fL (80.0-100.0); Macrocytosis Slight; Mean Platelet Volume 8.5; Monocytes # (A) 0.5 k/uL (0-1.0); Monocytes % (A) 7 %; Neutrophils # (A) 5.2 k/uL (1.3-7.7); Neutrophils % (A) 72 %; Platelet Count 215 k/uL (150-450); RBC 4.08 m/uL (4.30-5.90); RDW 14.8 % (11.5-15.5); WBC 7.2 k/uL (3.8-10.6)
[2023-08-20 09:54] LABS: ALT 10 U/L (4-49); AST 19 U/L (17-59); African American GFR (CKD) >90 (>60 ml/min/1.73 sqM); Albumin 3.2 g/dL (3.5-5.0); Alkaline Phosphatase 58 U/L (38-126); Anion Gap 5 mmol/L; Calcium 8.6 mg/dL (8.4-10.2); Carbon Dioxide 24 mmol/L (22-30); Chloride 108 mmol/L (98-107); Glucose 85 mg/dL (74-99); Non-African American GFR(CKD) 89 (>60 ml/min/1.73 sqM); Potassium 4.2 mmol/L (3.5-5.1); Sodium 137 mmol/L (137-145); Total Bilirubin 0.6 mg/dL (0.2-1.3); Total Protein 5.8 g/dL (6.3-8.2)
[2023-08-20 09:55] LABS: Blood Urea Nitrogen 11 mg/dL (9-20)
--- NOTE | 2023-08-20 12:54 | P.PN ---
Subjective Progress Note Date: 08/20/23 Principal diagnosis: Acute pulmonary embolism, and history of advanced stage non-small cell lung cancer, on immunotherapy. This is a very pleasant 62-year-old male patient with a history of coronary artery disease with multiple stent placements, COPD, former smoker, TIA squamous cell lung cancer, advanced stage, diagnosed in October 2021 on immunotherapy in the form of Opdivo and Yervoy. He also had a pulmonary embolism approximately 1 year ago and has been maintained on Eliquis 5 mg twice daily. At approximately 3:00 this morning the patient woke up coughing and congested. He realized he was coughing up blood. He had some substernal chest discomfort and presented here this morning for the same. CT angiogram was positive for pulmonary embolus, mild burden of clot involving the branch point of the right main pulmonary artery extending into the right lower lobar and a couple segmental/subsegmental branches. No evidence of right heart strain on CT. There is noted COPD with moderate emphysema. Similar soft tissue encasement of the right hilum and contiguous opacity extending down the subpleural and right lower lobe. Some internal air cavitation is similar as well. Stable residual disease versus site of distal treated disease remains on the differential. Mild right pleural effusion. Couple spiculated nodules in the upper lobes measuring 1 cm on the left and 5 mm on the right unchanged. This is compared to a CAT scan from May 2023. No central pulmonary arterial filling defects were noted at that time. White count 8.9. Hemoglobin 15.1. Platelets 236. Sodium 133. Potassium 4.4. Bicarb 23. BUN 20. Creatinine 0.95. Viral screen negative. He is seen in the emergency department in consultation. He is sitting up on a stretcher. Awake and alert in no acute distress. He is maintaining O2 saturations in the 90s on room air. He denies any worsening chest discomfort. No shortness of breath. No further hemoptysis. He has been initiated on a heparin drip. Patient was reevaluated today on 08/19/2023, patient is doing well, he is now on room air, not in distress, he does have and continues to have some occasional episodes of minimal hemoptysis. Remains on heparin. PTT today is 62.9, it is surprising to me that the patient has been on Eliquis all along, and he developed pulmonary embolism. I am recommending hematologic evaluation, and possibly transition from Eliquis to Lovenox as the drug of choice for treatment of his pulmonary embolism since the patient is considered to have failed therapy with Eliquis. Patient has not been seen by hematology at this point yet. And if the patient continues to have hemoptysis, may not be a bad idea to consider bronchoscopy and airways evaluation to make sure that he is not bleeding from his malignancy. Clinically the patient is doing great, hemoglobin today is 13.7 WBC count is 6.4 basic metabolic profile is normal renal profile is normal Patient was reevaluated today on 08/20/2023, continues to do well, minimal intermittent blood-tinged sputum, no shortness of breath no cough no fever no chills no chest pain. Patient has not been seen yet by hematology to decide on long-term anticoagulation therapy, I myself would favor Lovenox to replace his Eliquis. Apparently patient failed Eliquis and developed pulmonary embolism while on Eliquis. WBC count today is 7.2 hemoglobin is 13.2, stable, PTT is 77, patient remains on heparin electrolytes are normal renal profile is normal Objective - Vital Signs Vital signs: Vital Signs Temp 98 F 08/20/23 08:00 Pulse 67 08/20/23 08:00 Resp 18 08/20/23 08:00 BP 135/75 08/20/23 08:00 Pulse Ox 96 08/20/23 08:00 FiO2 Intake & Output 08/19/23 08/20/23 08/20/23 18:59 06:59 18:59 Intake Total 834 246.715 358 Balance 834 246.715 358 Intake: Intake, IV Titration 246.715 Amount Heparin Sod,Pork in 0.45% 246.715 NaCl 25,000 unit In 0.45 % NaCl 1 250ml.bag @ 18 UNITS/KG/HR 12.084 mls/hr IV .[id number] [facility] Rx#: [id number] Oral 834 358 Other: Voiding Method Toilet # Voids 2 - Exam GENERAL EXAM: Reveals 62-year-old white male in no distress HEAD: Normocephalic. EYES: Normal reaction of pupils, equal size. NOSE: Clear with pink turbinates. THROAT: No erythema or exudates. NECK: No masses, no JVD. CHEST: No chest wall deformity. LUNGS: Clear bilaterally no crackles rhonchi or wheezes CVS: S1 and S2 normal with no audible murmur, regular rhythm. ABDOMEN: No hepatosplenomegaly, normal bowel sounds, no guarding or rigidity. SKIN: No rashes CENTRAL NERVOUS SYSTEM: Alert and oriented x 3 no gross focal deficit EXTREMITIES: No clubbing edema or cyanosis. - Labs CBC & Chem 7: 08/20/23 08:49 08/20/23 08:49 Labs: Abnormal Lab Results - Last 24 Hours (Table) 08/20/23 08/20/23 08/20/23 Range/Units 08:49 08:49 08:49 RBC 4.08 L (4.30-5.90) m/uL MCV 101.5 H (80.0-100.0) fL Lymphocytes # 0.8 L (1.0-4.8) k/uL APTT 77.3 H (22.0-30.0) sec Chloride 108 H (98-107) mmol/L Total Protein 5.8 L (6.3-8.2) g/dL Albumin 3.2 L (3.5-5.0) g/dL Microbiology - Last 24 Hours (Table) 08/18/23 09:38 Blood Culture - Preliminary Blood Assessment and Plan Assessment: Impression: Hemoptysis and shortness of breath secondary to acute pulmonary embolism. CT angiogram was positive for pulmonary embolus, mild burden of clot involving the branch point of the right main pulmonary artery extending into the right lower lobar and a couple segmental/subsegmental branches. No evidence of right heart strain on CT. Previous history of pulmonary emboli and the patient has been on Eliquis for approximately 1 year Advanced stage metastatic non-small cell carcinoma, squamous cell, diagnosed in October 2021. Currently on Opdivo and Yervoy History of chronic obstructive pulmonary diseasChronic tobacco dependence Coronary artery disease with review of stent placement History of CVA/TIA Recommendation: Continue heparin, as per protocol for pulmonary embolism Hematology/oncology to evaluate and decide on possibly changing Eliquis to Lovenox on outpatient basis Consider bronchoscopy and airways examination early next week if the patient continues to have episodes of hemoptysis. Although this could be done also on outpatient basis if the patient gets to be discharged home Continue bronchodilators and his home meds Will continue to follow Time with Patient: Less than 30
[2023-08-21 10:17] LABS: Basophils # (A) 0.1 k/uL (0-0.2); Basophils % (A) 1 %; Eosinophils # (A) 0.4 k/uL (0-0.7); Eosinophils % (A) 6 %; HCT 43.9 % (39.0-53.0); HGB 13.6 gm/dL (13.0-17.5); Lymphocytes % (A) 13 %; MCH 31.3 pg (25.0-35.0); MCV 101.1 fL (80.0-100.0); Macrocytosis Slight; Mean Platelet Volume 8.2; Monocytes # (A) 0.4 k/uL (0-1.0); Monocytes % (A) 6 %; Neutrophils # (A) 5.6 k/uL (1.3-7.7); Neutrophils % (A) 74 %; Platelet Count 232 k/uL (150-450); RBC 4.34 m/uL (4.30-5.90); RDW 14.4 % (11.5-15.5); WBC 7.6 k/uL (3.8-10.6)
[2023-08-21 10:18] VITALS: RESP 20
[2023-08-21 11:00] LABS: ALT 11 U/L (4-49); AST 25 U/L (17-59); African American GFR (CKD) >90 (>60 ml/min/1.73 sqM); Albumin 3.5 g/dL (3.5-5.0); Alkaline Phosphatase 78 U/L (38-126); Anion Gap 6 mmol/L; Blood Urea Nitrogen 11 mg/dL (9-20); Calcium 9.1 mg/dL (8.4-10.2); Carbon Dioxide 23 mmol/L (22-30); Chloride 109 mmol/L (98-107); Glucose 71 mg/dL (74-99); Non-African American GFR(CKD) 78 (>60 ml/min/1.73 sqM); Potassium 3.9 mmol/L (3.5-5.1); Sodium 138 mmol/L (137-145); Total Bilirubin 0.5 mg/dL (0.2-1.3); Total Protein 6.4 g/dL (6.3-8.2)
[2023-08-21 11:56] VITALS: BP 122/73; PULSE 59; TEMP 97.8
--- NOTE | 2023-08-21 12:14 | P.PN ---
Subjective Progress Note Date: 08/21/23 Principal diagnosis: Pulmonary embolism. This is a very pleasant 62-year-old male patient with a history of coronary artery disease with multiple stent placements, COPD, former smoker, TIA squamous cell lung cancer, advanced stage, diagnosed in October 2021 on immunotherapy in the form of Opdivo and Yervoy. He also had a pulmonary embolism approximately 1 year ago and has been maintained on Eliquis 5 mg twice daily. At approximately 3:00 this morning the patient woke up coughing and congested. He realized he was coughing up blood. He had some substernal chest discomfort and presented here this morning for the same. CT angiogram was positive for pulmonary embolus, mild burden of clot involving the branch point of the right main pulmonary artery extending into the right lower lobar and a couple segmental/subsegmental branches. No evidence of right heart strain on CT. There is noted COPD with moderate emphysema. Similar soft tissue encasement of the right hilum and contiguous opacity extending down the subpleural and right lower lobe. Some internal air cavitation is similar as well. Stable residual disease versus site of distal treated disease remains on the differential. Mild right pleural effusion. Couple spiculated nodules in the upper lobes measuring 1 cm on the left and 5 mm on the right unchanged. This is compared to a CAT scan from May 2023. No central pulmonary arterial filling defects were noted at that time. White count 8.9. Hemoglobin 15.1. Platelets 236. Sodium 133. Potassium 4.4. Bicarb 23. BUN 20. Creatinine 0.95. Viral screen negative. He is seen in the emergency department in consultation. He is sitting up on a s tretcher. Awake and alert in no acute distress. He is maintaining O2 saturations in the 90s on room air. He denies any worsening chest discomfort. No shortness of breath. No further hemoptysis. He has been initiated on a heparin drip. Patient was reevaluated today on 08/19/2023, patient is doing well, he is now on room air, not in distress, he does have and continues to have some occasional episodes of minimal hemoptysis. Remains on heparin. PTT today is 62.9, it is surprising to me that the patient has been on Eliquis all along, and he developed pulmonary embolism. I am recommending hematologic evaluation, and possibly transition from Eliquis to Lovenox as the drug of choice for treatment of his pulmonary embolism since the patient is considered to have failed therapy with Eliquis. Patient has not been seen by hematology at this point yet. And if the patient continues to have hemoptysis, may not be a bad idea to consider bronchoscopy and airways evaluation to make sure that he is not bleeding from his malignancy. Clinically the patient is doing great, hemoglobin today is 13.7 WBC count is 6.4 basic metabolic profile is normal renal profile is normal Patient was reevaluated today on 08/20/2023, continues to do well, minimal intermittent blood-tinged sputum, no shortness of breath no cough no fever no chills no chest pain. Patient has not been seen yet by hematology to decide on long-term anticoagulation therapy, I myself would favor Lovenox to replace his Eliquis. Apparently patient failed Eliquis and developed pulmonary embolism while on Eliquis. WBC count today is 7.2 hemoglobin is 13.2, stable, PTT is 77, patient remains on heparin electrolytes are normal renal profile is normal Progress note dated August 21, 2023. The patient is seen today in room 364. He was admitted with a diagnosis of pulmonary embolism, and hemoptysis. The patient does have a history of lung cancer, and had been on Eliquis all along, from a previous pulmonary embolism. The patient is currently now on IV heparin. He is on room air. Dopplers of lower extremities were negative. He was seen by hematology, who is recommending Lovenox, for anticoagulation. Current labs include a white count 7.6, hemoglobin 13.6, hematocrit 43.9, and a platelet count of 232,000. Sodium 138, potassium 3.9, chlorides 109, CO2 23, BUN 11, creatinine 1.01. Glucose is 71. Objective - Vital Signs Vital signs: Vital Signs Temp 97.8 F 08/21/23 11:53 Pulse 59 L 08/21/23 11:53 Resp 20 08/21/23 11:53 BP 122/73 08/21/23 11:53 Pulse Ox 98 08/21/23 11:53 FiO2 Intake & Output 08/20/23 08/21/23 08/21/23 18:59 06:59 18:59 Intake Total 596 250 118 Balance 596 250 118 Intake: Intake, IV Titration 250 Amount Heparin Sod,Pork in 0.45% 250 NaCl 25,000 unit In 0.45 % NaCl 1 250ml.bag @ 18 UNITS/KG/HR 12.084 mls/hr IV .[id number] [facility] Rx#: [id number] Oral 596 118 Other: Voiding Method Toilet # Voids 4 3 - Exam No acute distress, oriented 3. HEENT examination is grossly unremarkable. Mucous membranes are moist. No oral lesions. Neck supple. Full range of motion. No adenopathy thyromegaly or neck vein distention. Cardiovascular examination reveals regular rhythm rate. S1-S2 normal. No S3 or S4. No discernible murmur noted. Lungs reveal clear breath sounds. Breath sounds are equal bilaterally. No adventitious lung sounds including wheezes rhonchi or crackles. Abdomen soft bowel sounds are heard. No masses or tenderness. Extremities are intact. No cyanosis clubbing or edema. Skin is without rash or lesion. Neurologic examination is brief but nonfocal. - Labs CBC & Chem 7: 08/21/23 09:27 08/21/23 09:27 Labs: Abnormal Lab Results - Last 24 Hours (Table) 08/21/23 08/21/23 08/21/23 Range/Units 00:00 09:27 09:27 MCV 101.1 H (80.0-100.0) fL APTT 65.7 H (22.0-30.0) sec Chloride 109 H (98-107) mmol/L Glucose 71 L (74-99) mg/dL Microbiology - Last 24 Hours (Table) 08/18/23 09:38 Blood Culture - Preliminary Blood Assessment and Plan Assessment: Hemoptysis, and shortness of breath, secondary to recurrent acute pulmonary embolism. Previous history of pulmonary embolism, as the patient has been on Eliquis, for approximately 1 year. Advanced stage metastatic non-small cell carcinoma, squamous cell, diagnosed in October 2021. History of COPD. History of chronic tobacco dependence. Coronary artery disease, status post stent placement. History of CVA/TIA. Plan: Plan dated August 21, 2023. The patient continues on IV heparin. He has not had any additional hemoptysis. Clinically, the patient is on room air. He is without distress or difficulty in breathing. No need for bronchoscopy at this time, as the patient is not having any episodes or further episodes of hemoptysis. Hematology is recommending Lovenox, as his primary anticoagulant. In addition, some consideration could be given to placement of a Chantal filter, prophylactically, as the patient had a recurrent PE, while on Eliquis. The patient certainly at high risk, given his advanced stage non-small cell lung cancer. Additional recommendations and suggestions are forthcoming. The patient is a DO NOT RESUSCITATE patient. We will continue to follow. Labs, x-rays, and medications are reviewed. Time with Patient: Less than 30
--- NOTE | 2023-08-21 13:51 | P.PN ---
Subjective Progress Note Date: 08/21/23 Principal diagnosis: Acute on chronic PE, failure of eliquis In f/u today pt reports some heaviness in the chest with deep breath but no palpitations, radiating chest pain, dizziness has tolerated heparin, no hemoptysis. No other acute c/o. Feels well enough to go home. Lovenox copay verified pt can afford Objective - Vital Signs Vital signs: Vital Signs Temp 97.8 F 08/21/23 11:53 Pulse 59 L 08/21/23 11:53 Resp 20 08/21/23 11:53 BP 122/73 08/21/23 11:53 Pulse Ox 98 08/21/23 11:53 FiO2 Intake & Output 08/20/23 08/21/23 08/21/23 18:59 06:59 18:59 Intake Total 596 250 118 Balance 596 250 118 Intake: Intake, IV Titration 250 Amount Heparin Sod,Pork in 0.45% 250 NaCl 25,000 unit In 0.45 % NaCl 1 250ml.bag @ 18 UNITS/KG/HR 12.084 mls/hr IV .[id number] [facility] Rx#: [id number] Oral 596 118 Other: Voiding Method Toilet # Voids 4 3 - Constitutional General appearance: Present: average body habitus, cooperative, no acute distress - EENT Eyes: Present: anicteric sclerae, EOMI ENT: Present: hearing grossly normal - Respiratory Respiratory: bilateral: CTA - Cardiovascular Rhythm: regular - Peripheral edema leg Peripheral Edema: bilateral: None - Gastrointestinal General gastrointestinal: Present: soft - Integumentary Integumentary: Present: normal - Neurologic Neurologic: Present: CNII-XII intact - Musculoskeletal Musculoskeletal: Present: strength equal bilaterally - Psychiatric Psychiatric: Present: A&O x's 3, appropriate affect, intact judgment & insight - Labs CBC & Chem 7: 08/21/23 09:27 08/21/23 09:27 Labs: Abnormal Lab Results - Last 24 Hours (Table) 08/21/23 08/21/23 08/21/23 Range/Units 00:00 09:27 09:27 MCV 101.1 H (80.0-100.0) fL APTT 65.7 H (22.0-30.0) sec Chloride 109 H (98-107) mmol/L Glucose 71 L (74-99) mg/dL Microbiology - Last 24 Hours (Table) 08/18/23 09:38 Blood Culture - Preliminary Blood - Imaging and Cardiology CT scan - abdomen: report reviewed CT scan - chest: report reviewed CT scan - pelvis: report reviewed Venous US: report reviewed Assessment and Plan (1) Pulmonary embolism Current Visit: Yes Status: Acute Priority: High Code(s): I26.99 - OTHER PULMONARY EMBOLISM WITHOUT ACUTE COR PULMONALE SNOMED Code(s): 33510871 (2) Squamous cell carcinoma lung Current Visit: Yes Status: Acute Priority: High Code(s): C34.90 - MALIGNANT NEOPLASM OF UNSP PART OF UNSP BRONCHUS OR LUNG SNOMED Code(s): 856578019 Plan: PE, acute on chronic -Confirmed acute on chronic with Radiologist -Pt reporting some persistent, not progressive, chest tightness with deep inspiration, no other symptoms to report. Will transition to lovenox -Failure of eliquis. Treatment dose lovenox ordered. Copay verified $5 mo. Start today, DC heparin drip once 1st dose given. Orders sent -BLE doppler neg for DVT Hemoptysis -resolved, no other bleeding reported Squamous cell carcinoma of lung -Disease stable on current regimen nivolumab every 3 weeks and ipi every 6 weeks, had cycle 14 08/15/2023. -Reviewed CT AP results-stable disease at L5, stable disease in lungs, no new disease seen. Pt verbalized understanding. Plan will be to cont treatment as prescribed -Clinic f/u with Dr. Makeda Porras scheduled for 08/29
[2023-08-21] MEDS: ENOXAPARIN 60 MG/0.6 ML SYRINGE SQ STA (14:01)
--- NOTE | 2023-08-21 15:26 | P.DS ---
Providers Date of admission: 08/18/23 10:56 Expected date of discharge: 08/21/23 Attending physician: Jorge Alberto Garibay Consults: 08/18/23 10:48 Consult Physician Routine Consulting Provider: Sundar Veloz Consult Reason/Comments: PE, Lung CA Do you want consulting provider notified?: Yes Consult Physician Routine Consulting Provider: Pierce Wood Consult Reason/Comments: lung cA, PE Do you want consulting provider notified?: Yes Primary care physician: Jorge Alberto Garibay Hospital Course: Diagnosis on discharge: 1. Pulmonary embolism 2. History of lung cancer patient has followed with Dr. Pennington and has received immunotherapy 3. History of Coronary artery disease with cardiac stents in December2022 4. History of previous pulmonary embolism. 5. Ongoing nicotine dependence 6. History of emphysema 7. History of TIA Hospital course: Rubén Young, is a 62-year-old male patientWho presented to the ER with concerns of coughing up blood. Patient has past medical history of lung cancer and pulmonary embolism and maintained on Eliquis. Patient reports he was diagnosed with lung cancer proximally 2 years ago and has received immunotherapy follows with Dr. Porras. Additional medical history includes COPD, CVA, hyperlipidemia, osteoarthritis, TIA and smoker.Chest CTA completed showing positive for pulmonary embolus, COPD with moderate emphysema residual small right pleural effusion and couple spiculated nodules in the upper lobes measuring 1 cm on the left and 5 mm on the right remain unchanged.At this time patient will be admitted patient will be started on heparin drip. Hematology, pulmonary services will be consulted. Current vital signs temp 98.4, heart rate 83, respiratory rate 18, blood pressure 120/77 pulse ox 95% on room air. Lab work is unremarkableWhite blood cell 8.9, hemoglobin 15.1 troponin negative. Creatinine 0.95 bun 20. At this time patient denies chest pain or shortness of breath. Patient does report cough. Patient denies nausea vomiting or diarrhea. Patient denies any urinary burning or frequency On 08/19/2023 patient was seen and examined on the medical floor he is alert and oriented x 3 in no apparent distress he is complaining of cough and occasional blood with the sputum otherwise he denies any complaints there is no fever or chills no headache or dizziness no chest pain no shortness of breath no nausea or vomiting no abdominal pain no diarrhea no urinary symptoms. Currently he is maintained on IV heparin. Awaiting input from pulmonary and oncology. On 08/20/2023 patient is alert and oriented x 3. Patient remains on IV heparin drip. Awaiting further recommendations from hematology and pulmonary services. Current vital signs Temp 98.0, heart rate 67, respiratory rate 18, blood pressure 135/75 with a pulse ox of 96%. Patient denies chest pain. Patient reports occasional shortness of breath. Patient denies nausea vomiting or diarrhea. Patient denies any urinary burning or frequency on 08/21/2023 patient was seen and examined on the medical floor, he is alert and oriented 3 in no apparent distress, he is still complaining of cough and occasional blood with the sputum, otherwise he denies any complaints, there is no fever or chills no headache or dizziness no chest pain no shortness of breath no nausea or vomiting no abdominal pain no diarrhea and no urinary symptoms, input from pulmonary and oncology reviewed, currently patient is maintained on IV heparin, pattient will receive SQ Lovenox post discharge. Plan - Discharge Summary Discharge Rx Participant: Yes New Discharge Prescriptions: New Enoxaparin [Lovenox] 60 mg SQ Q12H #60 each Continue Clopidogrel [Plavix] 75 mg PO DAILY Nivolumab [Opdivo] 360 mg IV Q21D Ergocalciferol [Vitamin D2 (1250 Mcg = 81104 Iu)] 1,250 mcg PO WE Omeprazole 20 mg PO DAILY Isosorbide Mononitrate ER [Imdur] 30 mg PO DAILY Nitroglycerin Sl Tabs [Nitrostat] 0.4 mg SL Q5M PRN PRN Reason: Chest Pain Ipilimumab [Yervoy] 50 mg IV Q21D Discontinued Apixaban [Eliquis] 5 mg PO BID Apixaban [Eliquis] 5 mg PO BID Discharge Medication List Ergocalciferol [Vitamin D2 (1250 Mcg = 26068 Iu)] 1,250 mcg PO WE 04/30/21 [Hi story] Clopidogrel [Plavix] 75 mg PO DAILY 05/15/23 [History] Ipilimumab [Yervoy] 50 mg IV Q21D 08/18/23 [History] Isosorbide Mononitrate ER [Imdur] 30 mg PO DAILY 08/18/23 [History] Nitroglycerin Sl Tabs [Nitrostat] 0.4 mg SL Q5M PRN 08/18/23 [History] Nivolumab [Opdivo] 360 mg IV Q21D 08/18/23 [History] Omeprazole 20 mg PO DAILY 08/18/23 [History] Enoxaparin [Lovenox] 60 mg SQ Q12H #60 each 08/19/23 [Rx] Follow up Appointment(s)/Referral(s): Rowena Porras MD [STAFF PHYSICIAN] - 08/30/23 3:00 pm Jorge Alberto Garibay MD [Primary Care Provider] - 1-2 days
== END 2023-08-21 16:20 | disposition home or self-care (01) | DRG 176 ==
LOC: EC 07:48 → 3SCARD 10:56
PROVIDERS: ADMIT Internal Medicine; ATTEND Internal Medicine
DX: I27.82 Chronic pulmonary embolism (principal); J91.8 Pleural effusion in other conditions classified elsewhere; C34.31 Malignant neoplasm of lower lobe, right bronchus or lung; J43.9 Emphysema, unspecified; I25.10 Atherosclerotic heart disease of native coronary artery without angina pectoris; F17.210 Nicotine dependence, cigarettes, uncomplicated; E78.5 Hyperlipidemia, unspecified; M19.90 Unspecified osteoarthritis, unspecified site; R91.8 Other nonspecific abnormal finding of lung field; R59.1 Generalized enlarged lymph nodes; R63.0 Anorexia; R63.4 Abnormal weight loss; Z68.25 Body mass index [BMI] 25.0-25.9, adult; I25.2 Old myocardial infarction; Z95.5 Presence of coronary angioplasty implant and graft; Z79.01 Long term (current) use of anticoagulants; Z86.73 Personal history of transient ischemic attack (TIA), and cerebral infarction without residual deficits; Z79.02 Long term (current) use of antithrombotics/antiplatelets; Z79.899 Other long term (current) drug therapy; Z92.3 Personal history of irradiation
CPT/HCPCS: 36415; 71275; 74177; 80053; 83605; 83735; 84484; 85025; 85379; 85610; 85730; 87040; 87636; 93005; 93970; 96365; 96366; 96367; 99291

== ENCOUNTER → 2023-11-28 | Outpatient (CLI) | payer MEDICARE, OTHER ==
--- NOTE | 2023-12-22 14:41 | CT ---
Site ID synapse default Patient Rubén Young ID [id number] Age/Gender: 63Y, M Order # N/A Procedure CT ChestAbdPelvis w con Date 11/28/2023 2:45:00 PM EXAMINATION TYPE: CT ChestAbdPelvis w con CT DLP: 1208 mGycm, Automated exposure control for dose reduction was used. DATE OF EXAM: 12/01/2023 2:23 PM COMPARISON: CT abdomen pelvis 08/19/2023, CTA chest 08/18/2023, CT chest in the pelvis 05/25/2023, 2022, 09/28/2022 CLINICAL INDICATION: Male, 63 year old with history of lung cancer, follow-up. Technique: Multiple axial images of the chest, abdomen, and pelvis were obtained following the intrav enous administration of 100 mL Isovue-300. Oral contrast was administered Two-dimensional coronal and sagittal reconstructions were obtained. Findings: CHEST: LUNGS/ PLEURA: Mild centrilobular emphysematous changes. Similar calcified left lower lobe 4.3 mm nod ule (series 6, image 38). Similar left upper lung nodular opacities and scarring. Similar consolidati ve changes in the medial aspect of the right lower lobe measuring 2.5 x 1.8 cm. No new or enlarging p ulmonary nodules. Small right pleural effusion with associated atelectasis. No pneumothorax. AIRWAY: Patent and unremarkable.. HEART: Size within normal limits. No pericardial effusion. Mild to moderate coronary arterial calcifi cations. Most prominent along the RCA. MEDIASTINUM: Stable moderately large right pulmonary hilar lymph node measuring 1.8 cm (series 2, jose ge 34) Calcified left hilar lymph nodes. VASCULATURE: No aortic aneurysm. Mild atherosclerotic calcification of the aorta. Previously seen pu lmonary embolism is not well-visualized however exam is not angiographic. MUSCULOSKELETAL: No acute osseous abnormalities. No aggressive osseous lesion. SOFT TISSUES/LYMPH NODES: Unremarkable. LOWER NECK: No significant findings. ABDOMEN: ABDOMEN LIVER: Unremarkable GALLBLADDER AND BILE DUCTS: Unremarkable. PANCREAS: Unremarkable. SPLEEN: Scattered calcified granulomas. ADRENAL GLANDS: Unremarkable. KIDNEYS AND URETERS: No evidence of hydronephrosis or renal calculus. The kidneys enhance symmetrical ly. Contrast is demonstrated within both collecting systems on the delayed phase. Left renal cyst tianna suring up to 1.6 cm in the superior pole. PELVIS BLADDER: Unremarkable REPRODUCTIVE: Subtle symmetric calcifications are demonstrated in the prostate gland. Mildly prominen t prostate gland. ABDOMEN & PELVIS STOMACH AND BOWEL: Stomach and duodenum are unremarkable. No focal bowel wall thickening or surroundi ng inflammatory changes. Enteric contrast reaches the distal small bowel. No evidence of bowel obstru ction. PERITONEUM: No evidence of pneumoperitoneum or free fluid. VASCULATURE: Moderate atherosclerotic calcifications are present throughout the abdominal aorta and i ts branches. No abdominal aortic aneurysm. Multilevel moderate focal short segment stenosis of the bi lateral common iliac and common femoral arteries. MUSCULOSKELETAL: No acute osseous abnormalities. Mild disc degenerative changes throughout the thorac olumbar spine. Stable lytic osseous metastatic disease involving the L3 and L5 vertebral bodies remai n present with some peripheral rim sclerosis. No new suspicious osseous lesions. LYMPH NODES: No evidence for lymphadenopathy. SOFT TISSUE/ABDOMINAL WALL: Small fat-containing left inguinal hernia. IMPRESSION: Overall stable exam with right hilar enlarged lymph node and right perihilar consolidation with trace right pleural effusion. Stable lytic osseous metastases within the lumbar spine. No lymphadenopathy identified.
== END | disposition home or self-care (01) ==
LOC: RADCTMAIN 13:02
PROVIDERS: ATTEND Internal Medicine
DX: C34.11 Malignant neoplasm of upper lobe, right bronchus or lung (principal); J43.9 Emphysema, unspecified; J90 Pleural effusion, not elsewhere classified; R59.0 Localized enlarged lymph nodes; C79.51 Secondary malignant neoplasm of bone
CPT/HCPCS: 71260; 74177; 36415; Q9967

== ENCOUNTER 2023-12-20 14:33 | Emergency (ER) | payer MEDICARE, OTHER ==
[2023-12-20 15:53] LABS: Basophils # (A) 0.1 k/uL (0-0.2); Basophils % (A) 1 %; Eosinophils # (A) 0.4 k/uL (0-0.7); Eosinophils % (A) 4 %; HGB 16.6 gm/dL (13.0-17.5); Lymphocytes % (A) 11 %; MCH 32.7 pg (25.0-35.0); MCHC 33.9 g/dL (31.0-37.0); MCV 96.4 fL (80.0-100.0); Monocytes # (A) 0.4 k/uL (0-1.0); Monocytes % (A) 4 %; Neutrophils # (A) 7.6 k/uL (1.3-7.7); Neutrophils % (A) 80 %; Platelet Count 273 k/uL (150-450); RBC 5.08 m/uL (4.30-5.90); RDW 14.4 % (11.5-15.5); WBC 9.4 k/uL (3.8-10.6)
[2023-12-20 16:09] LABS: ALT 9 U/L (4-49); AST 24 U/L (17-59); African American GFR (CKD) >90 (>60 ml/min/1.73 sqM); Albumin 4.4 g/dL (3.5-5.0); Alkaline Phosphatase 61 U/L (38-126); Amylase 52 U/L (30-110); Anion Gap 8 mmol/L; Blood Urea Nitrogen 10 mg/dL (9-20); Calcium 9.7 mg/dL (8.4-10.2); Carbon Dioxide 25 mmol/L (22-30); Chloride 102 mmol/L (98-107); Glucose 96 mg/dL (74-99); Lipase 84 U/L (23-300); Non-African American GFR(CKD) >90 (>60 ml/min/1.73 sqM); Potassium 4.8 mmol/L (3.5-5.1); Sodium 135 mmol/L (137-145); Total Protein 7.7 g/dL (6.3-8.2)
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
--- NOTE | 2023-12-20 17:18 | CT ---
EXAMINATION TYPE: CT abdomen pelvis w con DATE OF EXAM: 12/20/2023 COMPARISON: 11/28/2023 INDICATION: LLQ pain DLP: 531.2 mGycm, Automated exposure control for dose reduction was used. CONTRAST: 100 ml mL of Isovue 300. Study performed without Oral Contrast TECHNIQUE: Axial images were obtained from above the diaphragm to the pubic rami in the axial plane a t 5 mm thick sections. Reconstructed images are reviewed on the computer in the coronal plane. FINDINGS: Limited CT sections are obtained the lung bases. Small amount fluid may be the as ago esophageal rec ess. Adjacent atelectasis is present. This is diminished from comparison. Residual remains. Underlyin g mass is not excluded.. CT ABDOMEN: Liver: Normal Spleen: Calcified granuloma within the spleen. Pancreas: Normal Adrenal glands: The adrenal glands are normal. Gallbladder: Normal Kidneys: No masses are evident. No hydronephrosis is present. There is a 1.3 cm cyst measuring 6 [place] units anterior mid left kidney. Delayed images were obtained through the kidneys, which rem ain unremarkable. Aorta: Vascular calcification is within the aorta. Inferior vena cava: Normal. CT PELVIS: There is a fluid-filled small bowel loop within the lower pelvis. Remaining small bowel loops are non dilated. Mild small bowel prominence fluid is within the mid and upper abdomen. No definite obstructi on identified. This study is without oral contrast limiting bowel evaluation. Appendix: Normal as visualized. Urinary bladder: Minimal nodularity may be in the posterior lateral urinary bladder on the right. Exa mple image series 201 image 64., Series 202 image 57. Follow-up recommended Genitourinary structures: Prostate is slightly prominent a few calcifications. Osseous structures: No suspicious lytic or sclerotic lesions. IMPRESSION: 1. No suspicious acute changes to account for left lower quadrant pain. 2. Some mild small bowel ileus may be present. 3. There appears to be some nodularity within the posterior lateral right urinary bladder. Follow-up recommended. Underlying neoplasm not excluded. 4. Partially visualized persistent small right pleural fluid with adjacent atelectasis in the azygoe sophageal recess. Underlying mass not excluded, which may extend towards the hilum. Findings were pr esent on the recent comparison.
[2023-12-20] MEDS: SODIUM CHLORIDE 0.9% 1,000 ML IV STA (18:02)
[2023-12-20 18:22] LABS: Appearance,Urine Clear (Clear); Bilirubin,Urine Negative (Negative); Blood,Urine Trace (Negative); Color,Urine Colorless; Glucose,Urine (UA) Negative (Negative); Ketones,Urine Negative (Negative); Leukocyte Esterase,Urine Negative (Negative); Mucus,Urine Rare /hpf; Nitrite,Urine Negative (Negative); PH, Urine 5.5 (5.0-8.0); Protein,Urine Negative (Negative); RBC,Urine 1 /hpf (0-5); Squamous Epithelial Cell,Urine <1 /hpf (0-4); Urobilinogen,Urine <2.0 mg/dL (<2.0); WBC,Urine 1 /hpf (0-5)
[2023-12-20 19:49] VITALS: BP 156/82; PULSE 73; RESP 16; TEMP 97.6
== END 2023-12-20 19:49 | disposition home or self-care (01) ==
LOC: EC 14:33
CPT/HCPCS: 36415; 74177; 80053; 81001; 82150; 83605; 83690; 85025; 96360; 99284

== ENCOUNTER 2024-01-22 22:00 | Inpatient (IN) | payer MEDICARE, OTHER ==
--- NOTE | 2024-01-22 22:49 | ED ---
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 Blood (Negative) Urine Nitrite (Negative) Urine Bilirubin (Negative) Urine Urobilinogen (<2.0) mg/dL Ur Leukocyte Esterase (Negative) Stool Lactoferrin (Negative) C. difficile (EIA) Intrp (Negative) Influenza Type A (PCR) (Not Detectd) Influenza Type B (PCR) (Not Detectd) Urine Legionella Ag (Negative) RSV (PCR) (Not Detectd) SARS-CoV-2 (PCR) (Not Detectd) 01/28/24 01/28/24 01/29/24 Range/Units 06:58 07:43 06:19 WBC 6.7 (3.8-10.6) k/uL RBC 4.52 (4.30-5.90) m/uL Hgb 14.5 (13.0-17.5) gm/dL Hct 45.2 (39.0-53.0) % MCV 100.1 H (80.0-100.0) fL MCH 32.0 (25.0-35.0) pg MCHC 32.0 (31.0-37.0) g/dL RDW 14.0 (11.5-15.5) % Plt Count 242 (150-450) k/uL MPV 8.2 Immature Gran % (Auto) % Absolute Nucleated RBC % Neutrophils % 68 % Lymphocytes % 15 % Monocytes % 6 % Eosinophils % 9 % Basophils % 1 % Immature Gran # (0.00-0.04) X 10*3/uL Neutrophils # 4.5 (1.3-7.7) k/uL Lymphocytes # 1.0 (1.0-4.8) k/uL Monocytes # 0.4 (0-1.0) k/uL Eosinophils # 0.6 (0-0.7) k/uL Basophils # 0.0 (0-0.2) k/uL NRBC/100 WBC Diff (0.00-0.01) X 10*3/uL Macrocytosis APTT (22.0-30.0) sec Sodium (137-145) mmol/L Potassium (3.5-5.1) mmol/L Chloride (98-107) mmol/L Carbon Dioxide (22-30) mmol/L Anion Gap mmol/L BUN (9-20) mg/dL Creatinine (0.66-1.25) mg/dL Est GFR (CKD-EPI) (>=60) Est GFR (CKD-EPI)AfAm (>60 ml/min/1.73 sqM) Est GFR (CKD-EPI)NonAf (>60 ml/min/1.73 sqM) BUN/Creatinine Ratio (12.00-20.00) Ratio Glucose (74-99) mg/dL POC Glucose (mg/dL) 89 (70-110) mg/dL POC Glu [employer] [facility] Plasma Lactic Acid Clifford (0.7-2.0) mmol/L Calcium (8.4-10.2) mg/dL Phosphorus (2.4-5.1) mg/dL Magnesium (1.5-2.4) mg/dL Total Bilirubin (0.2-1.3) mg/dL AST (17-59) U/L ALT (4-49) U/L Alkaline Phosphatase (38-126) U/L Troponin I <0.012 (0.000-0.034) ng/mL Total Protein (6.3-8.2) g/dL Albumin (3.5-5.0) g/dL Globulin (1.6-3.3) g/dL Albumin/Globulin Ratio (1.60-3.17) Ratio Amylase (30-110) U/L Lipase (23-300) U/L Urine Color Urine Appearance (Clear) Urine pH (5.0-8.0) Ur Specific [place] (1.001-1.035) Urine Protein (Negative) Urine Glucose (UA) (Negative) Urine Ketones (Negative) Urine Blood (Negative) Urine Nitrite (Negative) Urine Bilirubin (Negative) Urine Urobilinogen (<2.0) mg/dL Ur Leukocyte Esterase (Negative) Stool Lactoferrin (Negative) C. difficile (EIA) Intrp (Negative) Influenza Type A (PCR) (Not Detectd) Influenza Type B (PCR) (Not Detectd) Urine Legionella Ag (Negative) RSV (PCR) (Not Detectd) SARS-CoV-2 (PCR) (Not Detectd) 01/29/24 Range/Units 06:19 WBC (3.8-10.6) k/uL RBC (4.30-5.90) m/uL Hgb (13.0-17.5) gm/dL Hct (39.0-53.0) % MCV (80.0-100.0) fL MCH (25.0-35.0) pg MCHC (31.0-37.0) g/dL RDW (11.5-15.5) % Plt Count (150-450) k/uL MPV Immature Gran % (Auto) % Absolute Nucleated RBC % Neutrophils % % Lymphocytes % % Monocytes % % Eosinophils % % Basophils % % Immature Gran # (0.00-0.04) X 10*3/uL Neutrophils # (1.3-7.7) k/uL Lymphocytes # (1.0-4.8) k/uL Monocytes # (0-1.0) k/uL Eosinophils # (0-0.7) k/uL Basophils # (0-0.2) k/uL NRBC/100 WBC Diff (0.00-0.01) X 10*3/uL Macrocytosis APTT (22.0-30.0) sec Sodium 136 L (137-145) mmol/L Potassium 4.3 (3.5-5.1) mmol/L Chloride 105 (98-107) mmol/L Carbon Dioxide 27 (22-30) mmol/L Anion Gap 4 mmol/L BUN 13 (9-20) mg/dL Creatinine 0.96 (0.66-1.25) mg/dL Est GFR (CKD-EPI) (>=60) Est GFR (CKD-EPI)AfAm >90 (>60 ml/min/1.73 sqM) Est GFR (CKD-EPI)NonAf 83 (>60 ml/min/1.73 sqM) BUN/Creatinine Ratio (12.00-20.00) Ratio Glucose 80 (74-99) mg/dL POC Glucose (mg/dL) (70-110) mg/dL POC Glu [employer] ID Plasma Lactic Acid Clifford (0.7-2.0) mmol/L Calcium 8.8 (8.4-10.2) mg/dL Phosphorus (2.4-5.1) mg/dL Magnesium (1.5-2.4) mg/dL Total Bilirubin 0.9 (0.2-1.3) mg/dL AST 51 (17-59) U/L ALT 9 (4-49) U/L Alkaline Phosphatase 59 (38-126) U/L Troponin I (0.000-0.034) ng/mL Total Protein 6.1 L (6.3-8.2) g/dL Albumin 3.5 (3.5-5.0) g/dL Globulin (1.6-3.3) g/dL Albumin/Globulin Ratio (1.60-3.17) Ratio Amylase (30-110) U/L Lipase (23-300) U/L Urine Color Urine Appearance (Clear) Urine pH (5.0-8.0) Ur Specific [place] (1.001-1.035) Urine Protein (Negative) Urine Glucose (UA) (Negative) Urine Ketones (Negative) Urine Blood (Negative) Urine Nitrite (Negative) Urine Bilirubin (Negative) Urine Urobilinogen (<2.0) mg/dL Ur Leukocyte Esterase (Negative) Stool Lactoferrin (Negative) C. difficile (EIA) Intrp (Negative) Influenza Type A (PCR) (Not Detectd) Influenza Type B (PCR) (Not Detectd) Urine Legionella Ag (Negative) RSV (PCR) (Not Detectd) SARS-CoV-2 (PCR) (Not Detectd) - Radiology Data Radiology results: report reviewed (CT abdomen pelvis does show likely a result lower lobe pneumonia), image reviewed Disposition Clinical Impression: History of lung cancer, Squamous cell carcinoma lung, Chest pain, Abdominal pain, Right lower lobe lung mass Disposition: ADMITTED IP TO THIS HOSP Condition: Serious Is patient prescribed a controlled substance at d/c from ED?: No Time of Disposition: 00:30
[2024-01-22 23:09] LABS: Basophils % (A) 0 %; Eosinophils # (A) 0.6 k/uL (0-0.7); Eosinophils % (A) 6 %; HCT 49.4 % (39.0-53.0); HGB 16.1 gm/dL (13.0-17.5); Lymphocytes # (A) 0.7 k/uL (1.0-4.8); Lymphocytes % (A) 8 %; MCH 31.9 pg (25.0-35.0); MCHC 32.5 g/dL (31.0-37.0); Mean Platelet Volume 7.7; Monocytes # (A) 0.4 k/uL (0-1.0); Monocytes % (A) 5 %; Neutrophils # (A) 7.4 k/uL (1.3-7.7); Neutrophils % (A) 80 %; Platelet Count 271 k/uL (150-450); RBC 5.04 m/uL (4.30-5.90); RDW 14.4 % (11.5-15.5); WBC 9.3 k/uL (3.8-10.6)
[2024-01-22] MEDS: SODIUM CHLORIDE 0.9% 1,000 ML IV STA (23:12)
[2024-01-22 23:18] LABS: ALT 9 U/L (4-49); African American GFR (CKD) >90 (>60 ml/min/1.73 sqM); Albumin 4.2 g/dL (3.5-5.0); Amylase 50 U/L (30-110); Anion Gap 9 mmol/L; Blood Urea Nitrogen 15 mg/dL (9-20); Calcium 9.8 mg/dL (8.4-10.2); Carbon Dioxide 25 mmol/L (22-30); Chloride 103 mmol/L (98-107); Glucose 118 mg/dL (74-99); Lipase 91 U/L (23-300); Non-African American GFR(CKD) >90 (>60 ml/min/1.73 sqM); Sodium 137 mmol/L (137-145); Total Bilirubin 0.8 mg/dL (0.2-1.3); Total Protein 7.2 g/dL (6.3-8.2)
[2024-01-22 23:27] LABS: AST 24 U/L (17-59); Alkaline Phosphatase 53 U/L (38-126); Potassium 4.4 mmol/L (3.5-5.1)
--- NOTE | 2024-01-23 00:43 | CT ---
EXAM: CT Abdomen and Pelvis With Intravenous Contrast CLINICAL HISTORY: ITS.REASON CT Reason: abdominal pain TECHNIQUE: Axial computed tomography images of the abdomen and pelvis with intravenous contrast. CTDI is 12.2 mGy and DLP is 539.2 mGy-cm. This CT exam was performed using one or more of the following dose reduction techniques: automated exposure control, adjustment of the mA and/or kV according to patient size, and/or use of iterative reconstruction technique. COMPARISON: No relevant prior studies available. FINDINGS: Lung bases: Airspace consolidation at the RIGHT lung base, concerning for pneumonia. Small RIGHT para pneumonic effusion. ABDOMEN: Liver: Unremarkable. No mass. Gallbladder and bile ducts: Unremarkable. No calcified stones. No ductal dilation. Pancreas: Unremarkable. No mass. No ductal dilation. Spleen: Calcified splenic granulomas. Adrenals: Unremarkable. No mass. Kidneys and ureters: Unremarkable. No solid mass. No hydronephrosis. Stomach and bowel: Wall thickening of small bowel, concerning for enteritis. No obstruction. PELVIS: Appendix: No findings to suggest acute appendicitis. Bladder: Unremarkable. No mass. Reproductive: Unremarkable as visualized. ABDOMEN and PELVIS: Intraperitoneal space: Unremarkable. No free air. No significant fluid collection. Bones/joints: Degenerative changes of the spine. No acute fracture. No dislocation. Soft tissues: Unremarkable. Vasculature: Atherosclerotic changes of the aorta. No abdominal aortic aneurysm. Lymph nodes: Unremarkable. No enlarged lymph nodes. IMPRESSION: 1. Airspace consolidation at the RIGHT lung base, concerning for pneumonia. Small RIGHT para pneumonic effusion. 2. Wall thickening of small bowel, concerning for enteritis.
[2024-01-23] MEDS: KETOROLAC 15 MG/ML 1 ML VIAL IVP STA (00:45)
[2024-01-23] MEDS: ONDANSETRON 4 MG/2 ML VIAL IVP STA (00:45)
[2024-01-23 00:48] LABS: Appearance,Urine Clear (Clear); Bilirubin,Urine Negative (Negative); Blood,Urine Negative (Negative); Color,Urine Light Yellow; Glucose,Urine (UA) Negative (Negative); Ketones,Urine Negative (Negative); Leukocyte Esterase,Urine Negative (Negative); Nitrite,Urine Negative (Negative); PH, Urine 6.5 (5.0-8.0); Protein,Urine Negative (Negative); Specific Gravity,Urine 1.039 (1.001-1.035); Urobilinogen,Urine <2.0 mg/dL (<2.0)
[2024-01-23] MEDS ORDERED: NALOXONE 0.4 MG/ML 1 ML VIAL IV PRN (00:57)
[2024-01-23] MEDS ORDERED: PNEUMONIA PROTOCOL UTILIZED 1 EACH MISC PO PRN (00:59)
[2024-01-23] MEDS: SODIUM CHLORIDE 0.9% 1,000 ML IV STA (02:23)
[2024-01-23] MEDS: DEXTROSE 5%-0.45% NACL 1,000 ML IV ONE (02:23)
[2024-01-23] MEDS: AZITHROMYCIN 500 MG in SODIUM CHLORIDE 0.9% 250 ML IVPB STA (02:41)
[2024-01-23] MEDS: MORPHINE SULFATE 4 MG/ML SYRINGE IVP STA (04:16)
[2024-01-23] MEDS: KETOROLAC 15 MG/ML 1 ML VIAL IVP SCH (06:56)
[2024-01-23] MEDS: IPRATROPIUM-ALBUTEROL 3 ML NEB INHALATION SCH (08:00)
[2024-01-23] MEDS: CLOPIDOGREL 75 MG TAB PO SCH (09:06)
[2024-01-23] MEDS: ISOSORBIDE MONONITRATE ER 30 MG TAB.ER.24H PO SCH (09:06)
[2024-01-23] MEDS: DABIGATRAN 150 MG CAP PO SCH (09:06)
[2024-01-23] MEDS: NICOTINE 21MG/24HR PATCH TRANSDERM SCH (09:06)
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
[2024-01-23] MEDS: IOPAMIDOL CONTRAST (ORAL USE) VIAL PO PRN (12:01)
[2024-01-23] MEDS: ONDANSETRON 4 MG/2 ML VIAL IVP PRN (12:03)
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
--- NOTE | 2024-01-23 13:42 | CT ---
EXAMINATION TYPE: CT abdomen pelvis wo con CT DLP: 260.80 mGycm, Automated exposure control for dose reduction was used. DATE OF EXAM: 01/23/2024 1:29 PM COMPARISON: CT abdomen pelvis from 01/22/2024, 12/20/2023, CT chest abdomen pelvis 11/28/2023 CLINICAL INDICATION:Male, 63 years old with history of abdominal pain; abdominal pain. oral contrast only as pt had iv contrast 12hrs prior TECHNIQUE: Standard CT of the abdomen and pelvis following the administration of oral contrast. Cor onal and sagittal reformats were performed. FINDINGS: LOWER CHEST: Subtle increased small right pleural effusion with partial association of right lower lo be consolidation. RCA calcification and/or stent. ABDOMEN LIVER: Unremarkable noncontrast appearance GALLBLADDER AND BILE DUCTS: Unremarkable noncontrast appearance PANCREAS: Unremarkable noncontrast appearance SPLEEN: Multiple calcified granulomas. ADRENAL GLANDS: Unremarkable noncontrast appearance. KIDNEYS AND URETERS: No evidence of hydronephrosis or renal calculus. Contrast is demonstrated within both collecting systems from prior contrast menstruation. Left renal 1.8 cm cyst. PELVIS BLADDER: Urinary bladder is contrast filled with an 8 mm filling defect along the posterior right brittany dder wall corresponding to prior CT 12/20/2023 (series 3, image 69). REPRODUCTIVE: Coarse calcifications of the prostate gland are identified. Mildly prominent prostate g land which indents upon the urinary bladder base. ABDOMEN & PELVIS STOMACH AND BOWEL: Stomach and duodenum are unremarkable. No focal bowel wall thickening or surroundi ng inflammatory changes. Distal colonic diverticulosis. Enteric contrast reaches the ascending colon. No evidence of bowel obstruction. PERITONEUM: No evidence of pneumoperitoneum or free fluid. VASCULATURE: Moderate atherosclerotic calcifications are present throughout the abdominal aorta and i ts branches. No evidence of aortic aneurysm. MUSCULOSKELETAL: No acute osseous abnormalities. Mild multilevel degenerative disc disease. Stable ly tic osseous metastatic disease involving L3 and L5 vertebral bodies with some peripheral rim sclerosi s. No new suspicious osseous lesions. LYMPH NODES: No gross evidence for lymphadenopathy. SOFT TISSUE/ABDOMINAL WALL: Unremarkable IMPRESSION: 1. No CT evidence for acute abdominal/pelvic process. 2. Redemonstration of filling defect along the right posterior urinary bladder wall from prior CT 12/09. Underlying neoplasm is not excluded. Direct visualization is recommended. 3. Stable lytic osseous metastases within the lumbar spine. 4. Slightly increased small right pleural effusion with adjacent consolidation. 5. Colonic diverticulosis without evidence for acute diverticulitis. [facility], , 01/23/2024 1:39 PM
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
[2024-01-24] MEDS: PANTOPRAZOLE 40 MG TABLET PO SCH (06:29)
[2024-01-24] MEDS: AZITHROMYCIN 500 MG TAB PO SCH (07:50)
[2024-01-24] MEDS: ERGOCALCIFEROL 1,250 MCG (50,000 IU) CAPSULE PO SCH (07:50)
--- NOTE | 2024-01-24 07:54 | XR ---
EXAMINATION TYPE: XR chest 2V DATE OF EXAM: 01/24/2024 COMPARISON: 04/27/2023 TECHNIQUE: PA and lateral views submitted. HISTORY: Cough FINDINGS: Emphysematous changes with right-sided consolidation and small pleural effusion. Mild venous congesti on not excluded. No pneumothorax. Underlying COPD. Suspect tiny granulomas. Osteopenia and degenerati ve change of the spine. IMPRESSION: 1. Right lower lobe and perihilar consolidation with small effusion correlate for pneumonia versus [facility] F. [facility], , 01/24/2024 7:51 AM
[2024-01-24 08:48] LABS: Basophils # (A) 0.06 X 10*3/uL (0.00-0.10); Basophils % (A) 0.9 %; Eosinophils # (A) 0.61 X 10*3/uL (0.04-0.35); HCT 39.7 % (39.6-50.0); HGB 13.3 g/dL (13.0-17.0); Lymphocytes # (A) 1.25 X 10*3/uL (0.90-5.00); Lymphocytes % (A) 18.4 %; MCHC 33.5 g/dL (32.0-37.0); MCV 95.7 FL (80.0-97.0); Mean Platelet Volume 10.6 FL (9.5-12.2); Monocytes # (A) 0.51 X 10*3/uL (0.20-1.00); Monocytes % (A) 7.5 %; NRBC Per 100 WBC 0 X 10*3/uL (0.00-0.01); Neutrophils # (A) 4.36 X 10*3/uL (1.80-7.70); Neutrophils % (A) 63.9 %; Platelet Count 231 X 10*3/uL (140-440); RBC 4.15 X 10*6/uL (4.40-5.60); RDW 15.9 % (11.5-14.5); WBC 6.81 X 10*3/uL (4.50-10.00)
[2024-01-24 09:03] LABS: ALT 9 U/L (10-49); AST 22 U/L (14-35); Albumin 3.5 g/dL (3.8-4.9); Albumin/Globulin Ratio 1.75 Ratio (1.60-3.17); Alkaline Phosphatase 54 U/L (41-126); BUN/Creat Ratio 8.44 Ratio (12.00-20.00); Blood Urea Nitrogen 7.6 mg/dL (9.0-27.0); Calcium 8.5 mg/dL (8.7-10.3); Carbon Dioxide 22.5 mmol/L (21.6-31.8); Chloride 108 mmol/L (96-109); Glucose 83 mg/dL (70-110); Magnesium 1.7 mg/dL (1.5-2.4); Potassium 4.2 mmol/L (3.5-5.5); Sodium 139 mmol/L (135-145); Total Bilirubin 0.5 mg/dL (0.3-1.2); Total Protein 5.5 g/dL (6.2-8.2)
--- NOTE | 2024-01-24 11:23 | P.PN ---
Subjective Progress Note Date: 01/24/24 CHIEF COMPLAINT: Abdominal pain HISTORY OF PRESENT ILLNESS: Patient is a plaints. Patient does report having issues with urinating. He is scheduled to follow-up with urology in the outpatient setting for a cystoscopy. He had a repeat CT scan yesterday with oral contrast that reported no CT evidence for acute abdominal/pelvic process. Redemonstration of filling defect along the right posterior urinary bladder wall. Underlying neoplasm cannot be excluded. Direct visualization recommended. Diverticulosis without evidence of diverticulitis. 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 Vital stable. WBC 6.81 Patient seen and examined with Dr. Copeland PHYSICAL EXAM: VITAL SIGNS: Reviewed. GENERAL: Well-developed in no acute distress. ABDOMEN: Soft. Nondistended. Tenderness across lower abdomen more in the suprapubic area NEUROLOGIC: Alert and oriented. Cranial nerves II through XII grossly intact. ASSESSMENT: 1. Lower abdominal tenderness possibly elated to his bladder issues. The repeat CAT scan no longer reported evidence of enteritis. 2. Diarrhea likely related to immunotherapy medication 3. Stage IV lung cancer PLAN: -Advance diet to regular -Consult urology, patient is known to them and was scheduled for outpatient cystoscopy regarding his bladder issues -No surgical intervention planned Physician [employer]soles Channel Opener note has been reviewed by physician. Signing provider agrees with the documented findings, assessment, and plan of care. Objective - Vital Signs Vital signs: Vital Signs Temp 98.3 F 01/24/24 07:08 Pulse 58 L 01/24/24 07:08 Resp 18 01/24/24 07:08 BP 155/83 01/24/24 07:08 Pulse Ox 98 01/24/24 07:08 FiO2 Intake & Output 01/23/24 01/24/24 01/24/24 18:59 06:59 18:59 Intake Total 450 Balance 450 Weight 61.235 kg Intake: Intake, IV Titration 450 Amount Dextrose 5%-0.45% NaCl 1, 450 000 ml @ 75 mls/hr IV . [id number] ONE Rx#:[id number] Other: Voiding Method Toilet # Voids 3 - Labs CBC & Chem 7: 01/24/24 04:50 01/24/24 04:50 Labs: Abnormal Lab Results - Last 24 Hours (Table) 01/24/24 01/24/24 Range/Units 04:50 04:50 RBC 4.15 L (4.40-5.60) X 10*6/uL RDW 15.9 H (11.5-14.5) % Eosinophils # 0.61 H (0.04-0.35) X 10*3/uL BUN 7.6 L (9.0-27.0) mg/dL BUN/Creatinine Ratio 8.44 L (12.00-20.00) Ratio Calcium 8.5 L (8.7-10.3) mg/dL ALT 9 L (10-49) U/L Total Protein 5.5 L (6.2-8.2) g/dL Albumin 3.5 L (3.8-4.9) g/dL
--- NOTE | 2024-01-24 12:01 | P.PN ---
Subjective Progress Note Date: 01/24/24 Rubén Young is a 63-year-old male patient who presented with complaints of abdominal pain and cramping patient reports nausea and vomiting that has increased over the past few days. Patient has a past medical history of stage IV lung cancer, COPD, CVA, hyperlipidemia, NV, osteoarthritis, PE and ongoing nicotine dependence. CT of abdomen and pelvis completed showing airspace consolidation of the right lung base concerning for pneumonia small right para pneumonic effusion wall thickening of small bowel concerning for enteritis. Lab work revealing white blood cell 9.3, hemoglobin 16.1. UA negative. Influenza RSV and COVID-19 negative. Creatinine 0.86 bun 15. At this time patient was started on azithromycin and Rocephin for pneumonia. Two-view chest x-ray has been ordered. Will consult surgical, pulmonary and oncology services. At this time patient reports improvement with abdominal pain. Patient denies any chest pain or shortness of breath. Patient denies nausea vomiting or diarrhea. Patient denies any urinary burning or frequency On 01/24/2024 patient is alert and oriented x 3. Diet has been advanced to regular per surgical services. Urology services consulted due to concerns of bladder abnormality and outpatient plans for cystoscopy. I will at this time patient denies chest pain or shortness of breath. Patient denies nausea vomiting or diarrhea. Patient denies any urinary burning or frequency. Current vital signs temp 97.9, heart rate 78, respiratory rate 16, blood pressure 111/66 with pulse ox of 98% on room air Objective - Vital Signs Vital signs: Vital Signs Temp 98.3 F 01/24/24 07:08 Pulse 58 L 01/24/24 07:08 Resp 18 01/24/24 07:08 BP 155/83 01/24/24 07:08 Pulse Ox 98 01/24/24 07:08 FiO2 Intake & Output 01/23/24 01/24/24 01/24/24 18:59 06:59 18:59 Intake Total 450 Balance 450 Weight 61.235 kg Intake: Intake, IV Titration 450 Amount Dextrose 5%-0.45% NaCl 1, 450 000 ml @ 75 mls/hr IV . [id number] ONE Rx#:[id number] Other: Voiding Method Toilet # Voids 3 - Exam Head normocephalic Neck supple Lungs clear to auscultation bilaterally no wheezing or crackles Heart regular rate and rhythm S1-S2, no rub or gallop Abdomen is soft nontender nondistended positive bowel sounds no hepatosplenomegaly Extremities no edema Neuro alert and orientated to 3 - Labs CBC & Chem 7: 01/24/24 04:50 01/24/24 04:50 Labs: Abnormal Lab Results - Last 24 Hours (Table) 01/24/24 01/24/24 Range/Units 04:50 04:50 RBC 4.15 L (4.40-5.60) X 10*6/uL RDW 15.9 H (11.5-14.5) % Eosinophils # 0.61 H (0.04-0.35) X 10*3/uL BUN 7.6 L (9.0-27.0) mg/dL BUN/Creatinine Ratio 8.44 L (12.00-20.00) Ratio Calcium 8.5 L (8.7-10.3) mg/dL ALT 9 L (10-49) U/L Total Protein 5.5 L (6.2-8.2) g/dL Albumin 3.5 L (3.8-4.9) g/dL Assessment and Plan Assessment: 1. Abdominal pain with nausea and vomiting secondary to possible enteritis 2. Pneumonia. Per pulmonary services no clinical suspicion for pneumonia 3. History of stage IV lung cancer 4. History of pulmonary embolism maintained on Pradaxa 5. History of coronary artery disease with previous cardiac stents 6. History of emphysema 7. History of TIA 8. Ongoing nicotine dependence DVT prophylaxis Pradaxa. GI prophylaxis Pepcid Repeat two-view chest x-ray has been ordered Surgical, pulmonary and oncology services consulted Patient has been started on IV antibiotics Repeat labs ordered
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
--- NOTE | 2024-01-24 15:22 | P.PN ---
Subjective Progress Note Date: 01/24/24 No acute events. Reporting improvement in abd pain and n/v. Tolerating diet Objective - Vital Signs Vital signs: Vital Signs Temp 98.3 F 01/24/24 07:08 Pulse 58 L 01/24/24 07:08 Resp 18 01/24/24 07:08 BP 155/83 01/24/24 07:08 Pulse Ox 98 01/24/24 07:08 FiO2 Intake & Output 01/23/24 01/24/24 01/24/24 18:59 06:59 18:59 Intake Total 450 Balance 450 Weight 61.235 kg Intake: Intake, IV Titration 450 Amount Dextrose 5%-0.45% NaCl 1, 450 000 ml @ 75 mls/hr IV . [id number] ONE Rx#:[id number] Other: Voiding Method Toilet # Voids 3 - Constitutional General appearance: Present: average body habitus, no acute distress - EENT Eyes: Present: anicteric sclerae, EOMI ENT: Present: hearing grossly normal - Respiratory Details: breathing is even and unlabored - Gastrointestinal General gastrointestinal: Present: soft. Absent: tenderness - Integumentary Integumentary: Absent: cyanotic, jaundiced - Neurologic Neurologic: Present: CNII-XII intact - Musculoskeletal Musculoskeletal: Present: strength equal bilaterally - Psychiatric Psychiatric: Present: A&O x's 3 - Labs CBC & Chem 7: 01/24/24 04:50 01/24/24 04:50 Labs: Abnormal Lab Results - Last 24 Hours (Table) 01/24/24 01/24/24 Range/Units 04:50 04:50 RBC 4.15 L (4.40-5.60) X 10*6/uL RDW 15.9 H (11.5-14.5) % Eosinophils # 0.61 H (0.04-0.35) X 10*3/uL BUN 7.6 L (9.0-27.0) mg/dL BUN/Creatinine Ratio 8.44 L (12.00-20.00) Ratio Calcium 8.5 L (8.7-10.3) mg/dL ALT 9 L (10-49) U/L Total Protein 5.5 L (6.2-8.2) g/dL Albumin 3.5 L (3.8-4.9) g/dL Assessment and Plan (1) Abdominal pain Current Visit: Yes Status: Acute Priority: High Code(s): R10.9 - UNSPECIFIED ABDOMINAL PAIN SNOMED Code(s): 17529903 (2) Nausea vomiting and diarrhea Current Visit: Yes Status: Acute Priority: High Code(s): R11.2 - NAUSEA WITH VOMITING, UNSPECIFIED; R19.7 - DIARRHEA, UNSPECIFIED SNOMED Code(s): 0068527 (3) Squamous cell carcinoma lung Current Visit: Yes Status: Acute Priority: Medium Code(s): C34.90 - MALIGNANT NEOPLASM OF UNSP PART OF UNSP BRONCHUS OR LUNG SNOMED Code(s): 668293771 Plan: Abdominal pain, n/v/d: Presented to emergency room with complaints of increasing abdominal pain and nausea vomiting diarrhea. Patient reports he has been having intermittent abdominal pain with diarrhea over the last 2 months and over the last couple days it has progressively worsened with acute nausea vomiting yesterday. Pat ient denies cough and acute changes in breathing. Denies blood in stool and melena. Denies rash. Denies fever and chills. -CT AP revealing wall thickening of the small bowel concerning for enteritis. -Labs reviewed, WBC 9.3, hemoglobin 16.1, platelets 271,000. Creatinine 0.86, GFR greater than 90. Bilirubin, LFTs, amylase, and lipase WNL. UA negative for UTI. Viral panel negative. Patient has been started on IV antibiotics with azithromycin and rocephin for treatment of suspected pneumonia -General surgery consulted -Unsure if acute changes in symptoms and reported enteritis is IO induced. Will see how patient does on treatment for pneumonia and supportive medications. If symptoms improve as pneumonia is treated less likely this is related to treatment. Also, IO induced immune reactions are typically seen earlier during onset of treatment, and patient has been on regimen for some time and has overall tolerated well with stable disease. Will continue to monitor course of hospitalization -Repeat CT AP with oral contrast ordered by surgery team revealed no CT evidence for acute abdominal/pelvic process. Redemonstration of filling defect along the right posterior urinary bladder wall from prior CT on 12/20/2023. Stable lytic osseous metastases within the lumbar spine. Slightly increased small right pleural effusion with adjacent consolidation. Colonic diverticulosis without acute diverticulitis. Patient is reporting significant improvement in symptoms. Tolerating diet. Plan to advance patient to regular diet today Pneumonia: -CT AP showing airspace consolidation at the right lung base concerning for pneumonia. Small right parapneumonic effusion -CXR showing RLL and perihilar consolidation with small effusion -Continues on azithromycin and rocephin. Patient afebrile, SPO2 98% on room air -Pulmonology following Squamous cell carcinoma of lung -Patient has continued on nivolumab/ipilimumab, completing cycle 17 on 01/10/24. Overall has been tolerating regimen with manageable side effects. -Most recent staging CT scans performed on 11/30/2021 revealed stable disease. Next staging CT scans will be around March 2024 -Treatment will be on hold until patient has acutely recovered Had long discussion today regrading daughters concern with lack of nutrition, ETOH use and depression. Pt states he drinks 1-2 beers daily, discussed alcohol cessation. Denies significant depression and does not want to try anti- depressants, stating " i am fine and don't like those medications." Nutrition education discussed
--- NOTE | 2024-01-24 18:39 | P.PN ---
Subjective Progress Note Date: 01/24/24 63-year-old male patient, known history of COPD and non small cell lung cancer, who was admitted to the hospital because of pain across his lower abdomen over the past 2 months. He did encounter also some nausea and emesis. He reported also some small episodes of diarrhea after eating. No bright red blood per rectum. No melanotic stool. The patient has also known history of coronary disease and previous coronary stents and he is maintained on Plavix. Based on that, the patient came into the hospital. White cell count at 9.3 with hemoglobin 16 and electrolytes are all within normal with a serum bicarb of 25 and a BUN of 15 and a creatinine of 0.8. LFTs are within normal limits. Amylase and lipase are nonelevated. UA was negative. Viral screen was negative. CAT scan of the abdomen and pelvis was done and it showed no acute intra-abdominal or pelvic process. There is a filling defect in the right posterior urinary bladder wall that needs to be further investigated. He has stable lytic osseous metastases involving the lumbar spine and an area of consolidation in the right lung base that was noted on previous CAT scan imaging. In terms of his lung cancer, the patient is known to have metastatic stage IV squamous cell carcinoma. The patient was diagnosed back in 2021 and at that time he had a large right hilar mass extending to the right lower lobe measuring 8.1 cm in size in addition to mediastinal and hilar lymphadenopathy and a cavitating lesion in the left upper lobe measuring around 2.8 cm in size. He was metastatic from the time of his diagnosis and the patient also had metastatic lesions to his lumbar spine and the patient received radiation therapy to his L3/L5 spine. Following that, the patient was started on a combination of Opdivo/Yervoy and he has been followed up since with repeated CAT scan imaging. He did have a favorable response and his disease has been essentially stable while being on immunotherapy. He is also known to have COPD maintained on Trelegy Ellipta on outpatient basis. He is known to have a chronic stable right-sided pleural effusion and based on my review of the CAT scan images, the findings are essentially unchanged. He also has a previous history of pulmonary embolism that was thought to be malignancy induced. He had a filling defect in his right lower lobe pulmonary artery branch and based on that the patient has been anticoagulated with Eliquis. He is also known to have coronary artery disease with previous stenting of the RCA x 3 maintained on Plavix followed up by cardiology. 01/24/2024: The patient continues Vague Abdominal Discomfort. Diarrhea Is Improving. No Shortness of Breath. No Chest Pain. Remains on Room Air Oxygen with a White Cell Count of 6.8 with a Hemoglobin of 13.3 and a Platelet Count of 231. Electrolytes Are All within Normal Limits. LFTs Are Normal. Viral Screen Has Been Negative. Legionella Urine Antigen Has Been Negative. Blood Cultures Been Negative. Objective - Vital Signs Vital signs: Vital Signs Temp 97.7 F 01/24/24 15:30 Pulse 81 01/24/24 15:30 Resp 18 01/24/24 15:30 BP 124/65 01/24/24 15:30 Pulse Ox 100 01/24/24 15:30 FiO2 Intake & Output 01/23/24 01/24/24 01/24/24 18:59 06:59 18:59 Intake Total 450 Balance 450 Weight 61.235 kg Intake: Intake, IV Titration 450 Amount Dextrose 5%-0.45% NaCl 1, 450 000 ml @ 75 mls/hr IV . [id number] ONE Rx#:[id number] Other: Voiding Method Toilet # Voids 3 2 # Bowel Movements 1 - Exam The patient appeared well nourished and normally developed. Vital signs as documented. Head exam is unremarkable. No scleral icterus or corneal arcus noted. Neck is without jugular venous distension, thyromegaly, or carotid bruits. Carotid upstrokes are brisk bilaterally. Lungs are diminished breath sounds bilaterally and the cavity is. Cardiac exam reveals the PMI to be normally sized and situated. Rhythm is regular. First and second heart sounds normal. No murmurs, rubs or gallops. Abdominal exam reveals normal bowel sounds, no masses, no organomegaly and no aortic enlargement. Extremities are nonedematous and both femoral and pedal pulses are normal. Examination of the skin revealed no evidence of significant rashes, suspicious appearing nevi or other concerning lesions. Neurologically, the patient is awake and alert and the patient does not have any focal neurological deficit. Cranial nerves are essentially intact. - Labs CBC & Chem 7: 01/24/24 04:50 01/24/24 04:50 Labs: Abnormal Lab Results - Last 24 Hours (Table) 01/24/24 01/24/24 Range/Units 04:50 04:50 RBC 4.15 L (4.40-5.60) X 10*6/uL RDW 15.9 H (11.5-14.5) % Eosinophils # 0.61 H (0.04-0.35) X 10*3/uL BUN 7.6 L (9.0-27.0) mg/dL BUN/Creatinine Ratio 8.44 L (12.00-20.00) Ratio Calcium 8.5 L (8.7-10.3) mg/dL ALT 9 L (10-49) U/L Total Protein 5.5 L (6.2-8.2) g/dL Albumin 3.5 L (3.8-4.9) g/dL Microbiology - Last 24 Hours (Table) 01/23/24 01:40 Blood Culture - Preliminary Blood 01/23/24 01:30 Blood Culture - Preliminary Blood Assessment and Plan Plan: Abdominal pain, diarrhea with some nausea and emesis, currently under investigation. CAT scan of the abdomen and pelvis showing some thickening of the small bowel, nonspecific enteritis that needs to be further followed by general surgery. No significant leukocytosis. No hemodynamic instability. No signs of any dehydration. 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 Subsequent CAT scan of the chest showing no evidence of any PE and the patient has been successfully treated for a filling defect in the right lower lobe pulmonary artery branch Smoker Coronary artery disease with previous STEMI, status post stenting of the RCA x 3 Chronic back pain Hypertension Hyperlipidemia Peripheral vascular disease Previous history of TIA Plan Management of abdominal pain diarrhea per medicine GI, clinically improving The lung findings and the CAT scan of the abdomen including the right sided pleural effusion and right infrahilar opacity are stable and the patient is being treated with immunotherapy with a combination of Opdivo and Yervoy and this will be continued. Based on my comparison on the various CAT scans, there is no interval progression and there is no clinical suspicion for pneumonia and based on my. Antibiotics can be discontinued. Continue Pradaxa regarding his previous pulmonary embolism.
[2024-01-25] MEDS: MORPHINE SULFATE 4 MG/ML SYRINGE IVP PRN (02:12)
[2024-01-25 08:41] LABS: Basophils # (A) 0.08 X 10*3/uL (0.00-0.10); Basophils % (A) 1.2 %; Eosinophils # (A) 0.82 X 10*3/uL (0.04-0.35); Eosinophils % (A) 12.3 %; HCT 40.1 % (39.6-50.0); HGB 13.5 g/dL (13.0-17.0); MCH 32.3 pg (27.0-32.0); MCHC 33.7 g/dL (32.0-37.0); MCV 95.9 FL (80.0-97.0); Mean Platelet Volume 10.9 FL (9.5-12.2); Monocytes % (A) 10.5 %; NRBC Per 100 WBC 0 X 10*3/uL (0.00-0.01); Neutrophils # (A) 3.64 X 10*3/uL (1.80-7.70); Neutrophils % (A) 54.7 %; Platelet Count 248 X 10*3/uL (140-440); RBC 4.18 X 10*6/uL (4.40-5.60); RDW 15.4 % (11.5-14.5); WBC 6.66 X 10*3/uL (4.50-10.00)
[2024-01-25 09:05] LABS: ALT 8 U/L (10-49); AST 17 U/L (14-35); Albumin 3.5 g/dL (3.8-4.9); Albumin/Globulin Ratio 1.59 Ratio (1.60-3.17); Alkaline Phosphatase 64 U/L (41-126); BUN/Creat Ratio 9.09 Ratio (12.00-20.00); Calcium 8.7 mg/dL (8.7-10.3); Carbon Dioxide 23.9 mmol/L (21.6-31.8); Chloride 104 mmol/L (96-109); Globulin 2.2 g/dL (1.6-3.3); Glucose 93 mg/dL (70-110); Potassium 4.5 mmol/L (3.5-5.5); Sodium 138 mmol/L (135-145); Total Bilirubin 0.5 mg/dL (0.3-1.2); Total Protein 5.7 g/dL (6.2-8.2)
[2024-01-25] MEDS: DICYCLOMINE 10 MG CAP PO PRN (10:24)
--- NOTE | 2024-01-25 13:15 | P.PN ---
Subjective Progress Note Date: 01/25/24 CHIEF COMPLAINT: Abdominal pain HISTORY OF PRESENT ILLNESS: Patient complains of pain across the lower abdomen after he urinates. Patient reports he tolerated food this morning. No nausea or vomiting and no increase in abdominal pain. Patient evaluated by urology service. They are recommending that he has his cystoscopy outpatient. He had a repeat CT scan yesterday with oral contrast that reported no CT evidence for acute abdominal/pelvic process. Redemonstration of filling defect along the rig ht posterior urinary bladder wall. Underlying neoplasm cannot be excluded. Direct visualization recommended. Diverticulosis without evidence of diverticulitis. 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 Vital stable. WBC 6.6. stool for C. difficile negative. stool lactoferrin positive PHYSICAL EXAM: VITAL SIGNS: Reviewed. GENERAL: Well-developed in no acute distress. ABDOMEN: Soft. Nondistended. Tenderness across lower abdomen and suprapubic area. no guarding and no rebound NEUROLOGIC: Alert and oriented. Cranial nerves II through XII grossly intact. ASSESSMENT: 1. Lower abdominal pain after urinating. The repeat CAT scan no longer reported evidence of enteritis. 2. Diarrhea now resolved. likely related to immunotherapy medication 3. Stage IV lung cancer PLAN: -Advance diet back to regular -No surgical intervention planned Physician Scale Tank Operator note has been reviewed by physician. Signing provider agrees with the documented findings, assessment, and plan of care. Objective - Vital Signs Vital signs: Vital Signs Temp 97.7 F 01/25/24 07:18 Pulse 57 L 01/25/24 08:40 Resp 17 01/25/24 08:40 BP 146/77 01/25/24 07:18 Pulse Ox 97 01/25/24 07:57 FiO2 Intake & Output 01/24/24 01/25/24 01/25/24 18:59 06:59 18:59 Intake Total 590 Balance 590 Intake: Oral 590 Other: Voiding Method Toilet Toilet # Voids 2 # Bowel Movements 1 - Labs CBC & Chem 7: 01/25/24 05:53 01/25/24 05:53 Labs: Abnormal Lab Results - Last 24 Hours (Table) 01/24/24 01/25/24 01/25/24 Range/Units 17:28 05:53 05:53 RBC 4.18 L (4.40-5.60) X 10*6/uL MCH 32.3 H (27.0-32.0) pg RDW 15.4 H (11.5-14.5) % Eosinophils # 0.82 H (0.04-0.35) X 10*3/uL BUN/Creatinine Ratio 9.09 L (12.00-20.00) Ratio ALT 8 L (10-49) U/L Total Protein 5.7 L (6.2-8.2) g/dL Albumin 3.5 L (3.8-4.9) g/dL Albumin/Globulin Ratio 1.59 L (1.60-3.17) Ratio Stool Lactoferrin Positive A (Negative) Microbiology - Last 24 Hours (Table) 01/23/24 01:40 Blood Culture - Preliminary Blood 01/23/24 01:30 Blood Culture - Preliminary Blood
--- NOTE | 2024-01-25 17:35 | P.PN ---
Subjective Progress Note Date: 01/25/24 Rubén Young is a 63-year-old male patient who presented with complaints of abdominal pain and cramping patient reports nausea and vomiting that has increased over the past few days. Patient has a past medical history of stage IV lung cancer, COPD, CVA, hyperlipidemia, [place], osteoarthritis, PE and ongoing nicotine dependence. CT of abdomen and pelvis completed showing airspace consolidation of the right lung base concerning for pneumonia small right para pneumonic effusion wall thickening of small bowel concerning for enteritis. Lab work revealing white blood cell 9.3, hemoglobin 16.1. UA negative. Influenza RSV and COVID-19 negative. Creatinine 0.86 bun 15. At this time patient was started on azithromycin and Rocephin for pneumonia. Two-view chest x-ray has been ordered. Will consult surgical, pulmonary and oncology services. At this time patient reports improvement with abdominal pain. Patient denies any chest pain or shortness of breath. Patient denies nausea vomiting or diarrhea. Patient denies any urinary burning or frequency On 01/24/2024 patient is alert and oriented x 3. Diet has been advanced to regular per surgical services. Urology services consulted due to concerns of bladder abnormality and outpatient plans for cystoscopy. I will at this time patient denies chest pain or shortness of breath. Patient denies nausea vomiting or diarrhea. Patient denies any urinary burning or frequency. Current vital signs temp 97.9, heart rate 78, respiratory rate 16, blood pressure 111/66 with pulse ox of 98% on room air On 01/25/2024 patient was seen and examined on the medical floor he is alert and oriented x 3 in no apparent distress he is still complaining of episodes of severe pain in the abdomen otherwise he denies any complaints there is no fever or chills no headache or dizziness no chest pain no shortness of breath no cough no nausea or vomiting no abdominal pain no diarrhea no blood in the stools he has some discomfort with urination no frequency or urgency and no hematuria Objective - Vital Signs Vital signs: Vital Signs Temp 97.9 F 01/25/24 13:39 Pulse 63 01/25/24 13:39 Resp 16 01/25/24 13:39 BP 149/78 01/25/24 13:39 Pulse Ox 98 01/25/24 13:39 FiO2 Intake & Output 01/24/24 01/25/24 01/25/24 18:59 06:59 18:59 Intake Total 590 540 Balance 590 540 Intake: Oral 590 540 Other: Voiding Method Toilet Toilet # Voids 2 # Bowel Movements 1 - Exam Head normocephalic Neck supple Lungs clear to auscultation bilaterally no wheezing or crackles Heart regular rate and rhythm S1-S2, no rub or gallop Abdomen is soft nontender nondistended positive bowel sounds no hepato splenomegaly Extremities no edema Neuro alert and orientated to 3 - Labs CBC & Chem 7: 01/25/24 05:53 01/25/24 05:53 Labs: Abnormal Lab Results - Last 24 Hours (Table) 01/24/24 01/25/24 01/25/24 Range/Units 17:28 05:53 05:53 RBC 4.18 L (4.40-5.60) X 10*6/uL MCH 32.3 H (27.0-32.0) pg RDW 15.4 H (11.5-14.5) % Eosinophils # 0.82 H (0.04-0.35) X 10*3/uL BUN/Creatinine Ratio 9.09 L (12.00-20.00) Ratio ALT 8 L (10-49) U/L Total Protein 5.7 L (6.2-8.2) g/dL Albumin 3.5 L (3.8-4.9) g/dL Albumin/Globulin Ratio 1.59 L (1.60-3.17) Ratio Stool Lactoferrin Positive A (Negative) Microbiology - Last 24 Hours (Table) 01/23/24 01:40 Blood Culture - Preliminary Blood 01/23/24 01:30 Blood Culture - Preliminary Blood Assessment and Plan Assessment: 1. Abdominal pain with nausea and vomiting secondary to possible enteritis 2. Pneumonia. Per pulmonary services no clinical suspicion for pneumonia 3. History of stage IV lung cancer 4. History of pulmonary embolism maintained on Pradaxa 5. History of coronary artery disease with previous cardiac stents 6. History of emphysema 7. History of TIA 8. Ongoing nicotine dependence DVT prophylaxis Pradaxa. GI prophylaxis Pepcid Repeat two-view chest x-ray has been ordered Surgical, pulmonary and oncology services consulted Patient has been started on IV antibiotics Repeat labs ordered
--- NOTE | 2024-01-25 18:00 | P.PN ---
Subjective Progress Note Date: 01/25/24 Reporting worsening abdominal pain today. Denies n/v/d. Remains afebrile. Objective - Vital Signs Vital signs: Vital Signs Temp 97.7 F 01/25/24 07:18 Pulse 57 L 01/25/24 07:18 Resp 17 01/25/24 07:18 BP 146/77 01/25/24 07:18 Pulse Ox 97 01/25/24 07:57 FiO2 Intake & Output 01/24/24 01/25/24 01/25/24 18:59 06:59 18:59 Intake Total 590 Balance 590 Intake: Oral 590 Other: Voiding Method Toilet # Voids 2 # Bowel Movements 1 - Constitutional General appearance: Present: average body habitus, no acute distress - EENT Eyes: Present: anicteric sclerae, EOMI ENT: Present: hearing grossly normal - Respiratory Details: breathing is even and unlabored - Cardiovascular Details: skin warm and dry - Gastrointestinal General gastrointestinal: Present: soft, tenderness - Integumentary Integumentary: Absent: cyanotic - Neurologic Neurologic: Present: CNII-XII intact - Musculoskeletal Musculoskeletal: Present: strength equal bilaterally - Labs CBC & Chem 7: 01/25/24 05:53 01/25/24 05:53 Labs: Abnormal Lab Results - Last 24 Hours (Table) 01/24/24 01/25/24 01/25/24 Range/Units 17:28 05:53 05:53 RBC 4.18 L (4.40-5.60) X 10*6/uL MCH 32.3 H (27.0-32.0) pg RDW 15.4 H (11.5-14.5) % Eosinophils # 0.82 H (0.04-0.35) X 10*3/uL BUN/Creatinine Ratio 9.09 L (12.00-20.00) Ratio ALT 8 L (10-49) U/L Total Protein 5.7 L (6.2-8.2) g/dL Albumin 3.5 L (3.8-4.9) g/dL Albumin/Globulin Ratio 1.59 L (1.60-3.17) Ratio Stool Lactoferrin Positive A (Negative) Microbiology - Last 24 Hours (Table) 01/23/24 01:40 Blood Culture - Preliminary Blood 01/23/24 01:30 Blood Culture - Preliminary Blood Assessment and Plan (1) Abdominal pain Current Visit: Yes Status: Acute Priority: High Code(s): R10.9 - UNS PECIFIED ABDOMINAL PAIN SNOMED Code(s): 08186079 (2) Nausea vomiting and diarrhea Current Visit: Yes Status: Acute Priority: High Code(s): R11.2 - NAUSEA WITH VOMITING, UNSPECIFIED; R19.7 - DIARRHEA, UNSPECIFIED SNOMED Code(s): 8082452 (3) Squamous cell carcinoma lung Current Visit: Yes Status: Acute Priority: Medium Code(s): C34.90 - MALIGNANT NEOPLASM OF UNSP PART OF UNSP BRONCHUS OR LUNG SNOMED Code(s): 481034589 Plan: Abdominal pain, n/v/d: Presented to emergency room with complaints of increasing abdominal pain and nausea vomiting diarrhea. Patient reports he has been having intermittent abdominal pain with diarrhea over the last 2 months and over the last couple days it has progressively worsened with acute nausea vomiting yesterday. Patient denies cough and acute changes in breathing. Denies blood in stool and melena. Denies rash. Denies fever and chills. -CT AP revealing wall thickening of the small bowel concerning for enteritis. -Labs reviewed, WBC 9.3, hemoglobin 16.1, platelets 271,000. Creatinine 0.86, GFR greater than 90. Bilirubin, LFTs, amylase, and lipase WNL. UA negative for UTI. Viral panel negative. Patient has been started on IV antibiotics with azithromycin and rocephin for treatment of suspected pneumonia -General surgery following, no plans for acute interventions -Unsure if acute changes in symptoms and reported enteritis is IO induced. Will see how patient does on treatment for pneumonia and supportive medications. If symptoms improve on abx treatment less likely this is related to treatment. Also, IO induced immune reactions are typically seen earlier during onset of treatment, and patient has been on regimen for some time and has overall tolerated well with stable disease. Will continue to monitor course of hospitalization -Repeat CT AP with oral contrast ordered by surgery team revealed no CT evidence for acute abdominal/pelvic process. Redemonstration of filling defect along the right posterior urinary bladder wall from prior CT on 12/20/2023. 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 Slightly increased small right pleural effusion with adjacent consolidation. Colonic diverticulosis without acute diverticulitis. Patient was reporting significant improvement in symptoms. Yesterday he was advanced to regular diet, and at todays visit is reporting increasing abdominal pain. Will restart on clear liquid diet -C-diff negative, stool cultures pending. Stool lactoferrin positive Pneumonia: -CT AP showing airspace consolidation at the right lung base concerning for pneumonia. Small right parapneumonic effusion -CXR showing RLL and perihilar consolidation with small effusion -Continues on IV abx. Patient afebrile, SPO2 high 90s on room air -Pulmonology following, reporting low suspicion for pneumonia Squamous cell carcinoma of lung -Patient has continued on nivolumab/ipilimumab, completing cycle 17 on 01/10/24. Overall has been tolerating regimen with manageable side effects. -Most recent staging CT scans performed on 11/30/2021 revealed stable disease. Next staging CT scans will be around March 2024 -Treatment will be on hold until patient has acutely recovered. At this time unsure if GI symptoms are IO induced, as stated above immune reactions are typically seen earlier with treatment, also his acute improvement since admit without high dose steroids is not typical with IO induced colitis. However, this remains in differential. Symptoms may also be related to significant cardiac/CAD disease, possibly r/t intestinal angina. Will speak to cardiology team Doctor attests: I performed a history and physical examination of this patient, developed impression and plan of care. Discussed with dictator. I agree with dictators note, documented as a scribe.
[2024-01-25] MEDS: DICYCLOMINE 10 MG CAP PO SCH (18:04)
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
--- NOTE | 2024-01-26 10:46 | P.DS ---
Providers Date of admission: 01/23/24 01:00 Expected date of discharge: 01/26/24 Attending physician: Jorge Alberto Garibay Consults: 01/23/24 00:57 Consult Physician Routine Consulting Provider: Bhargav Copeland Consult Reason/Comments: Demond Do you want consulting provider notified?: Yes 01/23/24 08:22 Consult Physician Routine Consulting Provider: Luis Hogan Consult Reason/Comments: pneumonia, lung Ca Do you want consulting provider notified?: Yes 01/23/24 08:23 Consult Physician Routine Consulting Provider: Pierce Wood Consult Reason/Comments: established patient lung ca Do you want consulting provider notified?: Yes 01/24/24 10:42 Consult Physician Routine Consulting Provider: Evgeny Marie Consult Reason/Comments: known, bladder abnormality Do you want consulting provider notified?: Yes 01/25/24 10:20 Consult Physician Routine Consulting Provider: Ignacio Vargas Consult Reason/Comments: gastrenteritis Do you want consulting provider notified?: Yes 01/26/24 10:11 Consult Physician Routine Consulting Provider: Jamal Zuluaga Consult Reason/Comments: CAD, r/o intestinal angina Do you want consulting provider notified?: Yes Primary care physician: Jorge Alberto Garibay [place] [facility] Course: Discharge diagnosis 1. Abdominal pain with nausea and vomiting secondary to possible enteritis 2. Pneumonia. Per pulmonary services no clinical suspicion for pneumonia 3. History of stage IV lung cancer 4. History of pulmonary embolism maintained on Pradaxa 5. History of coronary artery disease with previous cardiac stents 6. History of emphysema 7. History of TIA 8. Ongoing nicotine dependence Hospital course Rubén Young is a 63-year-old male patient who presented with complaints of abdominal pain and cramping patient reports nausea and vomiting that has increased over the past few days. Patient has a past medical history of stage IV lung cancer, COPD, CVA, hyperlipidemia, [place], osteoarthritis, PE and ongoing nicotine dependence. CT of abdomen and pelvis completed showing airspace consolidation of the right lung base concerning for pneumonia small right para pneumonic effusion wall thickening of small bowel concerning for enteritis. Lab work revealing white blood cell 9.3, hemoglobin 16.1. UA negative. Influenza RSV and COVID-19 negative. Creatinine 0.86 bun 15. At this time patient was started on azithromycin and Rocephin for pneumonia. Two-view chest x-ray has been ordered. Will consult surgical, pulmonary and oncology services. At this time patient reports improvement with abdominal pain. Patient denies any chest pain or shortness of breath. Patient denies nausea vomiting or diarrhea. Patient denies any urinary burning or frequency On 01/24/2024 patient is alert and oriented x 3. Diet has been advanced to regular per surgical services. Urology services consulted due to concerns of bladder abnormality and outpatient plans for cystoscopy. I will at this time patient denies chest pain or shortness of breath. Patient denies nausea vomiting or diarrhea. Patient denies any urinary burning or frequency. Current vital signs temp 97.9, heart rate 78, respiratory rate 16, blood pressure 111/66 with pulse ox of 98% on room air On 01/25/2024 patient was seen and examined on the medical floor he is alert and oriented x 3 in no apparent distress he is still complaining of episodes of severe pain in the abdomen otherwise he denies any complaints there is no fever or chills no headache or dizziness no chest pain no shortness of breath no cough no nausea or vomiting no abdominal pain no diarrhea no blood in the stools he has some discomfort with urination no frequency or urgency and no hematuria On 01/26/2024 patient is alert and oriented x 3. Patient evaluated by multiple consults no further inpatient workup. Plans for outpatient cystoscopy. Patient to follow-up with PCP and consulting providers for further management patient will be DC'd on Bentyl. patient denies chest pain or shortness breath. denies nausea vomiting diarrhea. Patient Condition at Discharge: Stable Plan - Discharge Summary New Discharge Prescriptions: New RX: Dicyclomine [Bentyl] 10 mg PO QID 7 Days #28 cap cefUROXime axetiL [Ceftin] 500 mg PO BID 7 Days #14 tab Continue RX: Clopidogrel [Plavix] 75 mg PO DAILY Co Q-10 100 mg PO DAILY RX: Ergocalciferol [Vitamin D2 (1250 Mcg = 03306 Iu)] 1,250 mcg PO WE RX: Omeprazole 20 mg PO DAILY@0630 RX: Isosorbide Mononitrate ER [Imdur] 30 mg PO DAILY RX: Nitroglycerin Sl Tabs [Nitrostat] 0.4 mg SL Q5M PRN PRN Reason: Chest Pain RX: Nicotine 21Mg/24Hr Patch [Habitrol] 1 patch TRANSDERM DAILY RX: Dabigatran Etexilate Mesylate [Dabigatran Etexilate] 150 mg PO BID Discontinued Dicyclomine [Bentyl] 10 mg PO TID PRN 7 Days #21 capsule PRN Reason: Pain Discharge Medication List RX: Ergocalciferol [Vitamin D2 (1250 Mcg = 79768 Iu)] 1,250 mcg PO WE 04/30/21 [History] RX: Clopidogrel [Plavix] 75 mg PO DAILY 05/15/23 [History] RX: Isosorbide Mononitrate ER [Imdur] 30 mg PO DAILY 08/18/23 [History] RX: Nitroglycerin Sl Tabs [Nitrostat] 0.4 mg SL Q5M PRN 08/18/23 [History] RX: Omeprazole 20 mg PO DAILY@0630 08/18/23 [History] Co Q-10 100 mg PO DAILY 01/23/24 [History] RX: Dabigatran Etexilate Mesylate [Dabigatran Etexilate] 150 mg PO BID 01/23/24 [History] RX: Nicotine 21Mg/24Hr Patch [Habitrol] 1 patch TRANSDERM DAILY 01/23/24 [His tory] RX: Dicyclomine [Bentyl] 10 mg PO QID 7 Days #28 cap 01/26/24 [Rx] cefUROXime axetiL [Ceftin] 500 mg PO BID 7 Days #14 tab 01/26/24 [Rx] Follow up Appointment(s)/Referral(s): Evgeny Marie MD [STAFF PHYSICIAN] - 1 Week (patient should have an appointment to see Dr. Marie in 1 week for cystoscopy. Please confirm) Jorge Alberto Garibay MD [Primary Care Provider] - 1-2 days Activity/Diet/Wound Care/Special Instructions: activity as tolerated Diet heart healthy Discharge Disposition: HOME SELF-CARE
[2024-01-26 11:07] LABS: Basophils # (A) 0.08 X 10*3/uL (0.00-0.10); Basophils % (A) 1.1 %; Eosinophils % (A) 11.2 %; HCT 43.4 % (39.6-50.0); HGB 14.9 g/dL (13.0-17.0); Lymphocytes # (A) 1.49 X 10*3/uL (0.90-5.00); Lymphocytes % (A) 20.9 %; MCH 32.3 pg (27.0-32.0); MCHC 34.3 g/dL (32.0-37.0); MCV 94.1 FL (80.0-97.0); Mean Platelet Volume 10.7 FL (9.5-12.2); Monocytes # (A) 0.66 X 10*3/uL (0.20-1.00); Monocytes % (A) 9.2 %; NRBC Per 100 WBC 0 X 10*3/uL (0.00-0.01); Neutrophils # (A) 4.08 X 10*3/uL (1.80-7.70); Neutrophils % (A) 57.2 %; Platelet Count 253 X 10*3/uL (140-440); RBC 4.61 X 10*6/uL (4.40-5.60); RDW 15.1 % (11.5-14.5); WBC 7.14 X 10*3/uL (4.50-10.00)
[2024-01-26 11:21] LABS: ALT 7 U/L (10-49); AST 16 U/L (14-35); Albumin 3.8 g/dL (3.8-4.9); Albumin/Globulin Ratio 1.58 Ratio (1.60-3.17); Alkaline Phosphatase 66 U/L (41-126); BUN/Creat Ratio 12.67 Ratio (12.00-20.00); Blood Urea Nitrogen 15.2 mg/dL (9.0-27.0); Calcium 9.2 mg/dL (8.7-10.3); Carbon Dioxide 23.4 mmol/L (21.6-31.8); Chloride 102 mmol/L (96-109); Globulin 2.4 g/dL (1.6-3.3); Glucose 92 mg/dL (70-110); Potassium 4.3 mmol/L (3.5-5.5); Sodium 136 mmol/L (135-145); Total Bilirubin 0.5 mg/dL (0.3-1.2); Total Protein 6.2 g/dL (6.2-8.2)
[2024-01-26] MEDS: MIDAZOLAM 2 MG/2 ML VIAL IVP ONE (13:03)
[2024-01-26] MEDS: fentaNYL (PF) 50 MCG/ML 2 ML AMP IVP ONE (13:03)
[2024-01-26] MEDS: LIDOCAINE 1% INJ 10MG/ML (20 ML MDV) SQ ONE (13:06)
--- NOTE | 2024-01-26 13:43 | P.PN ---
Subjective Progress Note Date: 01/26/24 CHIEF COMPLAINT: Abdominal pain HISTORY OF PRESENT ILLNESS: Patient reports he is feeling better. He is tolerating diet. Pain is improved. He feels ready for discharge. Yesterday had reported that the lower abdominal pain occurred after urinating. Afebrile. WBC 7.14 Patient seen and examined with Dr. Copeland PHYSICAL EXAM: VITAL SIGNS: Reviewed. GENERAL: Well-developed in no acute distress. ABDOMEN: Soft. Nondistended. NEUROLOGIC: Alert and oriented. Cranial nerves II through XII grossly intact. ASSESSMENT: 1. Lower abdominal pain after urinating. The repeat CAT scan no longer re ported evidence of enteritis. 2. Diarrhea now resolved. likely related to immunotherapy medication 3. Stage IV lung cancer PLAN: -Patient can be discharged from surgical standpoint -No surgical intervention planned -Recommend to follow-up with urology outpatient Physician Securities And Real [employer] Director note has been reviewed by physician. Signing provider agrees with the documented findings, assessment, and plan of care. Objective - Vital Signs Vital signs: Vital Signs Temp 97.7 F 01/26/24 12:32 Pulse 71 01/26/24 12:32 Resp 14 01/26/24 12:32 BP 117/72 01/26/24 12:32 Pulse Ox 100 01/26/24 12:32 FiO2 Intake & Output 01/25/24 01/26/24 01/26/24 18:59 06:59 18:59 Intake Total 1320 590 Balance 1320 590 Intake: Oral 1320 590 Other: Voiding Method Toilet Toilet Toilet # Voids 2 3 - Labs CBC & Chem 7: 01/26/24 05:21 01/26/24 05:21 Labs: Abnormal Lab Results - Last 24 Hours (Table) 01/26/24 01/26/24 Range/Units 05:21 05:21 MCH 32.3 H (27.0-32.0) pg RDW 15.1 H (11.5-14.5) % Eosinophils # 0.80 H (0.04-0.35) X 10*3/uL ALT 7 L (10-49) U/L Albumin/Globulin Ratio 1.58 L (1.60-3.17) Ratio Microbiology - Last 24 Hours (Table) 01/23/24 01:40 Blood Culture - Preliminary Blood 01/23/24 01:30 Blood Culture - Preliminary Blood 01/24/24 17:28 Stool Culture - Preliminary Stool
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
[2024-01-26] MEDS: SODIUM CHLORIDE 0.9% 1,000 ML IV ONE (14:46)
[2024-01-26] MEDS: HEPARIN SODIUM,PORCINE 10,000 UNIT in SODIUM CHLORIDE 0.9% 1,000 ML IRRIGATION ONE (15:07)
[2024-01-26] MEDS: HEPARIN SODIUM 1,000 UN/ML (10ML VL) IVP ONE (15:10)
[2024-01-26] MEDS: IOPAMIDOL-370 100ML BTL INJ ONE (15:28)
--- NOTE | 2024-01-26 16:23 | P.PCN ---
Description of Procedure: PROCEDURES PERFORMED: Abdominal angiography INDICATION: Abdominal pain concerning for mesenteric ischemia, PAD CONSENT:I have discussed the risks, benefits and alternative therapies for the above-mentioned procedure and for both sedation/analgesia as well as necessary blood product administration, if indicated, as they pertain to this patient. The patient has indicated understanding and acceptance of the risks and procedures discussed. PROCEDURE: After the risks, benefits and alternatives of the above mentioned procedure explained in detail with the patient, informed consent was obtained. Patient was taken to the catheterization lab and prepped and draped in usual fashion. 1% lidocaine was used to anesthetize the right radial area. A 6- Swedish sheath was placed in the right radial artery using modified Seldinger technique. A 5-Swedish pigtail catheter was inserted to the abdominal aorta and DSA imaging was obtained. Patient tolerated the procedure well. The radial sheath was removed and TR band placed with hemostasis achieved. Patient was transported back to the post catheterization holding area in stable condition. Conscious Sedation: Patient was monitored under the direct supervision of vision of myself for conscious sedation using Versed and fentanyl for a total duration of 21 minutes Abdominal aorta: The abdominal aorta has mild diffuse calcifcation. Renal arteries are patent bilaterally. There is no significant dissection or aneurysm. There is no significant aortic stenosis. There is normal flow of the celiac, SMA and EILEEN without significant stenosis. FINAL IMPRESSION: 1. Patent renal arteries and mesenteric arteries without evidence of mesenteric ischemia. PLAN: 1. Aggressive risk factor modification per most recent ACC/AHA guidelines. 2. Evaluate for alternative etiology of abdominal pain
--- NOTE | 2024-01-26 17:10 | P.PN ---
Subjective Progress Note Date: 01/26/24 Reporting improvement in abdominal pain. Denies n/v/d. Tolerating oral intake. Remains afebrile. Objective - Vital Signs Vital signs: Vital Signs Temp 97.7 F 01/26/24 12:32 Pulse 71 01/26/24 12:32 Resp 14 01/26/24 12:32 BP 117/72 01/26/24 12:32 Pulse Ox 100 01/26/24 12:32 FiO2 Intake & Output 01/25/24 01/26/24 01/26/24 18:59 06:59 18:59 Intake Total 1320 590 Balance 1320 590 Intake: Oral 1320 590 Other: Voiding Method Toilet Toilet Toilet # Voids 2 3 - Constitutional General appearance: Present: average body habitus, no acute distress - EENT Eyes: Present: anicteric sclerae, EOMI ENT: Present: hearing grossly normal - Respiratory Details: breathing is even and unlabored - Cardiovascular Details: skin warm and dry - Gastrointestinal General gastrointestinal: Present: soft. Absent: tenderness - Integumentary Integumentary: Absent: cyanotic, jaundiced - Musculoskeletal Musculoskeletal: Present: strength equal bilaterally - Psychiatric Psychiatric: Present: A&O x's 3 - Labs CBC & Chem 7: 01/26/24 05:21 01/26/24 05:21 Labs: Abnormal Lab Results - Last 24 Hours (Table) 01/26/24 01/26/24 Range/Units 05:21 05:21 MCH 32.3 H (27.0-32.0) pg RDW 15.1 H (11.5-14.5) % Eosinophils # 0.80 H (0.04-0.35) X 10*3/uL ALT 7 L (10-49) U/L Albumin/Globulin Ratio 1.58 L (1.60-3.17) Ratio Microbiology - Last 24 Hours (Table) 01/23/24 01:40 Blood Culture - Preliminary Blood 01/23/24 01:30 Blood Culture - Preliminary Blood 01/24/24 17:28 Stool Culture - Preliminary Stool Assessment and Plan (1) Abdominal pain Current Visit: Yes Status: Acute Priority: High Code(s): R10.9 - UNSPECIFIED ABDOMINAL PAIN SNOMED Code(s): 99640138 (2) Nausea vomiting and diarrhea Current Visit: Yes Status: Acute Priority: High Code(s): R11.2 - NAUSEA WITH VOMITING, UNSPECIFIED; R19.7 - DIARRHEA, UNSPECIFIED SNOMED Code(s): 9809590 (3) Squamous cell carcinoma lung Current Visit: Yes Status: Acute Priority: Medium Code(s): C34.90 - MALIGNANT NEOPLASM OF UNSP PART OF UNSP BRONCHUS OR LUNG SNOMED Code(s): 147917202 Plan: Abdominal pain, n/v/d: Presented to emergency room with complaints of increasing abdominal pain and nausea vomiting diarrhea. Patient reports he has been having intermittent abdominal pain with diarrhea over the last 2 months and over the last couple days it has progressively worsened with acute nausea vomiting yesterday. Patient denies cough and acute changes in breathing. Denies blood in stool and melena. Denies rash. Denies fever and chills. -CT AP revealing wall thickening of the small bowel concerning for enteritis. -Labs reviewed, WBC 9.3, hemoglobin 16.1, platelets 271,000. Creatinine 0.86, GFR greater than 90. Bilirubin, LFTs, amylase, and lipase WNL. UA negative for UTI. Viral panel negative. Patient has been started on IV antibiotics with azithromycin and rocephin for treatment of suspected pneumonia -General surgery following, no plans for acute interventions -Unsure if acute changes in symptoms and reported enteritis is IO induced. Will see how patient does on treatment for pneumonia and supportive medications. If symptoms improve on abx treatment less likely this is related to treatment. Also, IO induced immune reactions are typically seen earlier during onset of treatment, and patient has been on regimen for some time and has overall tolerated well with stable disease. -Repeat CT AP with oral contrast ordered by surgery team revealed no CT evidence for acute abdominal/pelvic process. Redemonstration of filling defect along the right posterior urinary bladder wall from prior CT on 12/20/2023. Stable lytic osseous metastases within the lumbar spine. Slightly increased small right pleural effusion with adjacent consolidation. Colonic diverticulosis without acute diverticulitis. -Outpt f/u with urology for cystoscopy Abdominal pain has waxed and waned during admission. Today pain has improved, tolerating oral intake -C-diff negative, stool cultures pending. Stool lactoferrin positive Pneumonia: -CT AP showing airspace consolidation at the right lung base concerning for pneumonia. Small right parapneumonic effusion -CXR showing RLL and perihilar consolidation with small effusion -Continues on IV abx. Patient afebrile, SPO2 high 90s on room air -Pulmonology following, reporting low suspicion for pneumonia Squamous cell carcinoma of lung -Patient has continued on nivolumab/ipilimumab, completing cycle 17 on 01/10/24. Overall has been tolerating regimen with manageable side effects. -Most recent staging CT scans performed on 11/30/2021 revealed stable disease. Next staging CT scans will be around March 2024 -Treatment will be on hold until patient has acutely recovered. At this time unsure if GI symptoms are IO induced, as stated above immune reactions are typically seen earlier with treatment, also his improvement in symptoms since admit without high dose steroids is not typical with IO induced colitis. However, this remains in differential. Symptoms may also be related to significant cardiac/CAD disease, possibly r/t intestinal angina. Discussed case with cardiology, Dr. Zuluaga, consult placed. Plan for CTA abd/pelvis to further evaluate -As his malignancy has been controlled and stable on current regimen would have to have high suspicion for IO induced immune reaction to d/c treatment, will continue to monitor course of hospitalization and r/o other possible etiologies for his presenting symptoms Doctor attests: I performed a history and physical examination of this patient, developed impression and plan of care. Discussed with dictator. I agree with dictators note, documented as a scribe.
--- NOTE | 2024-01-26 21:21 | CT ---
EXAMINATION TYPE: CT brain wo con DATE OF EXAM: 01/26/2024 COMPARISON: MRI brain 11/18/2021 INDICATION: Double vision. DLP: 1109.4 mGycm, Automated exposure control for dose reduction was used. CONTRAST: None CT of the brain is performed utilizing 3 mm thick sections through the posterior fossa and 3 mm thick sections through the remaining calvarium. Study is performed within 24 hours of arrival to the hosp [facility]. No abnormal hyperdensity is present to suggest an acute intracranial hemorrhage. No mass lesion is evident. No acute infarcts are evident. Mild periventricular white matter hypodensity is present likely on the basis of chronic white matter ischemic changes Ventricles and sulci are appropriate for the patient age. Paranasal sinuses and mastoid air cells within the [id number] are clear. There may be a nasal bone fracture. Correlate for pain IMPRESSION: 1. No acute intracranial process. Follow up MRI can be performed as clinically indicated. 2. Chronic appearing periventricular white matter ischemic type changes [facility], Workstation: [facility], 01/26/2024 9:19 PM
--- NOTE | 2024-01-27 09:27 | P.PN ---
Subjective Progress Note Date: 01/27/24 Patient is resting comfortably his bed. He has no complaints of pain. Patient underwent angiogram yesterday. There is no evidence of any mesenteric occlusion. On exam vital signs appear stable. Abdomen soft. Patient stable from surgical standpoint for discharge. Objective - Vital Signs Vital signs: Vital Signs Temp 97.6 F 01/27/24 09:13 Pulse 80 01/27/24 09:13 Resp 18 01/27/24 09:13 BP 112/71 01/27/24 09:13 Pulse Ox 100 01/27/24 09:13 FiO2 Intake & Output 01/26/24 01/27/24 01/27/24 18:59 06:59 18:59 Intake Total 290 10 370 Balance 290 10 370 Weight 58.2 kg Intake: IV 50 10 10 0.9 10 Invasive Line 1 10 Oral 240 360 Other: Voiding Method Toilet Toilet # Voids 1 - Labs CBC & Chem 7: 01/26/24 05:21 01/26/24 05:21 Labs: Abnormal Lab Results - Last 24 Hours (Table) 01/26/24 01/26/24 Range/Units 05:21 05:21 MCH 32.3 H (27.0-32.0) pg RDW 15.1 H (11.5-14.5) % Eosinophils # 0.80 H (0.04-0.35) X 10*3/uL ALT 7 L (10-49) U/L Albumin/Globulin Ratio 1.58 L (1.60-3.17) Ratio Microbiology - Last 24 Hours (Table) 01/23/24 01:40 Blood Culture - Preliminary Blood 01/23/24 01:30 Blood Culture - Preliminary Blood 01/24/24 17:28 Stool Culture - Preliminary Stool
--- NOTE | 2024-01-27 11:32 | P.PN ---
Subjective Progress Note Date: 01/27/24 The patient had his angiogram yesterday. Diet has been advanced to solids. He tolerated breakfast reasonably well. He states that he still has some abdominal pain, which appears to be spasmodic , typically starting after urination of certain movements. This seems to be relieved by passage of gas or stool. No nausea or vomiting. Objective - Vital Signs Vital signs: Vital Signs Temp 97.6 F 01/27/24 09:13 Pulse 80 01/27/24 09:15 Resp 18 01/27/24 09:15 BP 112/71 01/27/24 09:13 Pulse Ox 100 01/27/24 09:13 FiO2 Intake & Output 01/26/24 01/27/24 01/27/24 18:59 06:59 18:59 Intake Total 290 10 370 Balance 290 10 370 Weight 58.2 kg Intake: IV 50 10 10 0.9 10 Invasive Line 1 10 Oral 240 360 Other: Voiding Method Toilet Toilet Toilet # Voids 1 - Constitutional General appearance: Present: no acute distress - EENT Eyes: Present: EOMI ENT: Present: hearing grossly normal, normal oropharynx - Respiratory Respiratory: bilateral: CTA - Cardiovascular Rhythm: regular Heart sounds: normal: S1, S2 - Gastrointestinal General gastrointestinal: Present: normal bowel sounds, soft - Integumentary Integumentary: Present: normal - Neurologic Neurologic: Present: CNII-XII intact - Musculoskeletal Musculoskeletal: Present: strength equal bilaterally - Psychiatric Psychiatric: Present: A&O x's 3, appropriate affect - Labs CBC & Chem 7: 01/26/24 05:21 01/26/24 05:21 Labs: Microbiology - Last 24 Hours (Table) 01/24/24 17:28 Stool Culture - Preliminary Stool 01/23/24 01:40 Blood Culture - Preliminary Blood 01/23/24 01:30 Blood Culture - Preliminary Blood Assessment and Plan (1) Abdominal pain Narrative/Plan: The patient's workup for mesenteric ischemia was negative. He had an angiogram yesterday. Results were discussed with cardiology. -He is therefore cleared from their standpoint, and we will follow-up with them as an outpatient, for his pre-existing cardiac issues. -The patient has also been evaluated by surgery. He tolerated advancement of diet to solids reasonably well. Physical exam essentially benign. He is therefore cleared from their standpoint also, with no plans for additional investigation such as endoscopic evaluation at this time. -At this time the etiology of the abdominal pain is not definitely clear. Mesenteric ischemia is ruled out. CT scan with contrast did not show any radiologic evidence of enteritis/colitis. The clinical presentation is not typical of immunotherapy induced colitis/enteritis, with intermittent symptoms only, and diarrhea not a major component -At this time it was therefore felt that the patient could be discharged home from the oncology standpoint also. He was advised to maintain regular intake of fiber, as well as take a stool softener to keep bowel movements regular. He has an appointment in the office on 01/29/2024, at which time he will be evaluated for continuation of the same therapy, or modification, if clinically indicated Current Visit: Yes Status: Acute Priority: High Code(s): R10.9 - UNSPECIFIED ABDOMINAL PAIN SNOMED Code(s): 71775555 Plan: Defer to the admitting service and other consultants for management of his other medical issues.
--- NOTE | 2024-01-27 12:31 | P.PN ---
Subjective Progress Note Date: 01/27/24 Rubén Young is a 63-year-old male patient who presented with complaints of abdominal pain and cramping patient reports nausea and vomiting that has increased over the past few days. Patient has a past medical history of stage IV lung cancer, COPD, CVA, hyperlipidemia, TN, osteoarthritis, PE and ongoing nicotine dependence. CT of abdomen and pelvis completed showing airspace consolidation of the right lung base concerning for pneumonia small right para pneumonic effusion wall thickening of small bowel concerning for enteritis. Lab work revealing white blood cell 9.3, hemoglobin 16.1. UA negative. Influenza RSV and COVID-19 negative. Creatinine 0.86 bun 15. At this time patient was started on azithromycin and Rocephin for pneumonia. Two-view chest x-ray has been ordered. Will consult surgical, pulmonary and oncology services. At this time patient reports improvement with abdominal pain. Patient denies any chest pain or shortness of breath. Patient denies nausea vomiting or diarrhea. Patient denies any urinary burning or frequency On 01/24/2024 patient is alert and oriented x 3. Diet has been advanced to regular per surgical services. Urology services consulted due to concerns of bladder abnormality and outpatient plans for cystoscopy. I will at this time patient denies chest pain or shortness of breath. Patient denies nausea vomiting or diarrhea. Patient denies any urinary burning or frequency. Current vital signs temp 97.9, heart rate 78, respiratory rate 16, blood pressure 111/66 with pulse ox of 98% on room air On 01/25/2024 patient was seen and examined on the medical floor he is alert and oriented x 3 in no apparent distress he is still complaining of episodes of severe pain in the abdomen otherwise he denies any complaints there is no fever or chills no headache or dizziness no chest pain no shortness of breath no cough no nausea or vomiting no abdominal pain no diarrhea no blood in the stools he has some discomfort with urination no frequency or urgency and no hematuria On 01/26/2024 patient is alert and oriented x 3. Patient evaluated by multiple consults no further inpatient workup. Plans for outpatient cystoscopy. Patient to follow-up with PCP and consulting providers for further management patient will be DC'd on Bentyl. patient denies chest pain or shortness breath. denies nausea vomiting diarrhea. On 01/27/2024, patient was seen and examined on the medical floor, he is alert and oriented x 3 in no apparent distress, he is still having episodes of severe abdominal pain, otherwise he denies any complaints, there is no fever or chills no headache or dizziness no chest pain no shortness of breath no cough no nausea or vomiting, no diarrhea no blood in the stools no burning with urination no frequency or urgency and no hematuria. Plan is for discharge yesterday, however general surgery raised the possibility of ischemic bowel disease, patient was seen by cardiology and underwent mesenteric angiogram, which failed to reveal any evidence of mesenteric vascular obstruction. Postprocedure patient had a complaint of double vision that lasted several hours, CT scan of the brain was done without contrast and revealed no evidence of intracranial bleed, neurology consultation was requested for evaluation of double vision, patient stated that he woke up this morning and he did not have double vision. Objective - Vital Signs Vital signs: Vital Signs Temp 97.6 F 01/27/24 09:13 Pulse 81 01/27/24 11:58 Resp 18 01/27/24 11:58 BP 99/62 01/27/24 11:58 Pulse Ox 98 01/27/24 11:58 FiO2 Intake & Output 01/26/24 01/27/24 01/27/24 18:59 06:59 18:59 Intake Total 290 10 370 Balance 290 10 370 Weight 58.2 kg Intake: IV 50 10 10 0.9 10 Invasive Line 1 10 Oral 240 360 Other: Voiding Method Toilet Toilet Toilet # Voids 1 - Exam Head normocephalic Neck supple Lungs clear to auscultation bilaterally no wheezing or crackles Heart regular rate and rhythm S1-S2, no rub or gallop Abdomen is soft nontender nondistended positive bowel sounds no hepatosplenomegaly Extremities no edema Neuro alert and orientated to 3 - Labs CBC & Chem 7: 01/26/24 05:21 01/26/24 05:21 Labs: Microbiology - Last 24 Hours (Table) 01/24/24 17:28 Stool Culture - Preliminary Stool 01/23/24 01:40 Blood Culture - Preliminary Blood 01/23/24 01:30 Blood Culture - Preliminary Blood Assessment and Plan Assessment: 1. Abdominal pain with nausea and vomiting secondary to possible enteritis 2. Pneumonia. Per pulmonary services no clinical suspicion for pneumonia 3. History of stage IV lung cancer 4. History of pulmonary embolism maintained on Pradaxa 5. History of coronary artery disease with previous cardiac stents 6. History of emphysema 7. History of TIA 8. Ongoing nicotine dependence DVT prophylaxis Pradaxa. GI prophylaxis Pepcid Repeat two-view chest x-ray has been ordered Surgical, pulmonary and oncology services consulted Patient has been started on IV antibiotics Repeat labs ordered
--- NOTE | 2024-01-27 17:02 | CT ---
EXAMINATION TYPE: CT angio head neck CT DLP: 405.7 mGycm, Automated exposure control for dose reduction was used. DATE OF EXAM: 01/27/2024 4:43 PM COMPARISON: Brain same day. CLINICAL INDICATION: Male, 63 years old with history of TIA; PHH, TIA TECHNIQUE: Axially acquired helical CT angiogram of the head and neck was obtained with contrast. Axi al images are supplemented with 3D reconstructions and MIP images which were post-processed at an in dependent workstation. NASCET criteria used. Contrast used:65ml mL of Isovue 370 with IV Contrast, Oral contrast used: None. FINDINGS: CTA HEAD: No evidence of acute intracranial hemorrhage, mass effect, or midline shift. The ventricles, sulci, a nd cisterns are unremarkable. Vertebral arteries: The vertebral arteries are patent. Vertebral artery dominance: Codominant Basilar artery: The basilar artery is intact. The basilar artery bifurcation is normal. Internal Carotid arteries: Atherosclerosis without significant stenosis. The cervical, petrous, dangelo nous and supraclinoid segments are normal. NUBIA: Patent with no evidence of aneurysm. ACOM: Present without evidence of aneurysm. MCA: Patent with no evidence of aneurysm. ENDLESS STEAMER TENDER: Patent with no evidence of aneurysm. PCOM: Hypoplastic bilaterally. Dural sinuses: Patent. CTA NECK: Right Carotid System: The common carotid and external carotid arteries are patent. There is less than 25% stenosis at the c arotid bifurcation secondary to calcified/noncalcified plaque. The rest of the internal carotid arter y is patent. Left Carotid System: The common carotid and external carotid arteries are patent. There is less than 25% stenosis at the c arotid bifurcation secondary to calcified/noncalcified plaque. The rest of the internal carotid arter y is patent. Vertebral arteries are patent without evidence hemodynamically significant stenosis. There is a three-vessel aortic arch. The origins of the great vessels are patent. No evidence of hemo dynamically significant stenosis. Upper thorax: Centrilobular emphysema changes throughout the lungs. Left upper lung 3 mm pulmonary no dule. Similar dating back to at least 08/18/2023. IMPRESSION: 1. No evidence of dissection of the cervical internal carotid arteries or vertebral arteries or any e vidence of significant stenosis at the carotid bifurcations. 2. No evidence of intracranial high-grade stenosis or intracranial aneurysm. 3. 8 mm left upper lung pulmonary nodule similar to 11/28/2023 and 08/18/2023 Mild emphysema. [facility], , 01/27/2024 5:00 PM
[2024-01-27 23:56] LABS: Glucose,Whole Blood 92 mg/dL (70-110)
[2024-01-28] MEDS ORDERED: HEPARIN SODIUM 1,000 UN/ML (10ML VL) IV PRN (00:10)
[2024-01-28] MEDS: HEPARIN SOD,PORK IN 0.45% NACL 25,000 UNIT in 0.45% NACL 1 250ML.BAG IV SCH (00:19)
[2024-01-28] MEDS: METOPROLOL SUCCINATE (ER) 25 MG TAB.ER.24H PO SCH (00:23)
[2024-01-28] MEDS: ASPIRIN 81 MG PO STA (00:24)
[2024-01-28] MEDS: HEPARIN SODIUM 1,000 UN/ML (10ML VL) IV ONE (00:24)
[2024-01-28] MEDS: NITROGLYCERIN-D5W PMX 50 MG in DEXTROSE/WATER 1 250ML.BAG IV SCH (00:33)
[2024-01-28 01:03] LABS: ALT 8 U/L (4-49); AST 19 U/L (17-59); African American GFR (CKD) 78 (>60 ml/min/1.73 sqM); Alkaline Phosphatase 75 U/L (38-126); Anion Gap 4 mmol/L; Blood Urea Nitrogen 18 mg/dL (9-20); Calcium 9.3 mg/dL (8.4-10.2); Carbon Dioxide 27 mmol/L (22-30); Chloride 102 mmol/L (98-107); Glucose 95 mg/dL (74-99); Magnesium 1.8 mg/dL (1.6-2.3); Non-African American GFR(CKD) 68 (>60 ml/min/1.73 sqM); Potassium 4.3 mmol/L (3.5-5.1); Sodium 133 mmol/L (137-145); Total Bilirubin 0.8 mg/dL (0.2-1.3); Total Protein 6.7 g/dL (6.3-8.2)
--- NOTE | 2024-01-28 01:26 | P.PN ---
Subjective Progress Note Date: 01/27/24 This is a 63-year-old male patient of Dr. Mcfarland with past medical history of coronary artery disease status post angioplasty, peripheral vascular disease, hypertension, dyslipidemia, non-small cell lung cancer, tobacco use and dependence. We have been asked to evaluate the patient for abdominal angina. Patient states that he has had ongoing pain in the lower abdomen on and off and is better after he burps or passes gas. He states he has also had weight loss. Symptoms have been going on for the past 2 months. He continues to be a smoker. Blood pressure 145/83, heart rate 74, pulse ox 99% on room air. Chest x-ray: Right lower lobe and perihilar consolidation with small effusion correlate for pneumonia versus heart failure CT of the abdomen pelvis revealed no evidence of acute abdominal/pelvic process. Filling defect along the urinary bladder. Underlying neoplasm not excluded. 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 Laboratory studies: WBC 7.1, hemoglobin 14.9. BUN 10 creatinine 1.11. Influenza testing, COVID and RSV not detected. Home cardiac medications: Cardiac catheterization performed 05/19/2023 status post stent of the proximal RCA, x 2, PTCA of the ostial PLB. Echocardiogram performed 01/20/2023 revealed normal EF, mild TR, mild MR. Lexiscan stress test performed 02/14/2020 revealed normal EF, normal study. 01/27/2024 Patient underwent peripheral angiogram to look for any SMA or celiac artery stenosis. His peripheral angiogram did not show any significant obstructive disease. His right radial artery appears intact. Denies any chest pain chest p ressure. Physical examination: Gen: This is a 63-year-old male in no acute distress VS: reviewed HEENT: Head is atraumatic, normocephalic. Pupils equal, round. Sclerae is anicteric. NECK: Supple. No JVD. LUNGS: Clear to auscultation. No wheezes or rhonchi. No intercostal retractions. HEART: Regular rate and rhythm. 2/6 systolic ejection murmur. ABDOMEN: Soft No tenderness. EXTREMITIES: No pedal edema. No calf tenderness. NEUROLOGICAL: Patient is awake, alert and oriented x3. Assessment: Low abdominal pain rule out intestinal angina History of coronary artery disease with previous stenting Peripheral vascular disease Hypertension Hyperlipidemia Non-small cell lung cancer Tobacco use and dependence Plan: Continue patient's home cardiac medications We will continue to follow. Objective - Vital Signs Vital signs: Vital Signs Temp 98.1 F 01/27/24 23:15 Pulse 73 01/28/24 01:05 Resp 18 01/28/24 00:14 BP 126/74 01/28/24 01:05 Pulse Ox 99 01/28/24 00:14 FiO2 Intake & Output 01/27/24 01/27/24 01/28/24 06:59 18:59 06:59 Intake Total 10 380 10 Balance 10 380 10 Weight 58.2 kg Intake: IV 10 20 10 0.9 10 10 Invasive Line 1 20 Oral 360 Other: Voiding Method Toilet Toilet Toilet # Voids 1 3 1 - Labs CBC & Chem 7: 01/26/24 05:21 01/28/24 00:08 Labs: Abnormal Lab Results - Last 24 Hours (Table) 01/28/24 Range/Units 00:08 Sodium 133 L (137-145) mmol/L Microbiology - Last 24 Hours (Table) 01/24/24 17:28 Stool Culture - Preliminary Stool
--- NOTE | 2024-01-28 01:28 | P.PN ---
Subjective Progress Note Date: 01/28/24 This is a 63-year-old male patient of Dr. Mcfarland with past medical history of coronary artery disease status post angioplasty, peripheral vascular disease, hypertension, dyslipidemia, non-small cell lung cancer, tobacco use and dependence. We have been asked to evaluate the patient for abdominal angina. Patient states that he has had ongoing pain in the lower abdomen on and off and is better after he burps or passes gas. He states he has also had weight loss. Symptoms have been going on for the past 2 months. He continues to be a smoker. Blood pressure 145/83, heart rate 74, pulse ox 99% on room air. Chest x-ray: Right lower lobe and perihilar consolidation with small effusion correlate for pneumonia versus heart failure CT of the abdomen pelvis revealed no evidence of acute abdominal/pelvic process. Filling defect along the urinary bladder. Underlying neoplasm not excluded. 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 Laboratory studies: WBC 7.1, hemoglobin 14.9. BUN 10 creatinine 1.11. Influenza testing, COVID and RSV not detected. Home cardiac medications: Cardiac catheterization performed 05/19/2023 status post stent of the proximal RCA, x 2, PTCA of the ostial PLB. Echocardiogram performed 01/20/2023 revealed normal EF, mild TR, mild MR. Lexiscan stress test performed 02/14/2020 revealed normal EF, normal study. 01/27/2024 Patient underwent peripheral angiogram to look for any SMA or celiac artery stenosis. His peripheral angiogram did not show any significant obstructive disease. His right radial artery appears intact. Denies any chest pain chest p ressure. 01/28/2024 Cardiology was asked to evaluate the patient on emergent basis because of nicola rns of STEMI. Around midnight patient got up to use the restroom and when he went back to his bed he was having some substernal chest heaviness along with dizziness. His telemetry showed concerns of ST elevations in anteroseptal leads. For this nurse performed a twelve-lead ECG which showed ST elevations of 1 to 2 mm in lead V2 and V3. I evaluated the patient emergently. By the time of evaluating the patient, he was chest pain-free. We repeated an ECG and his ST elevations were resolved with normal ST segments. I performed a bedside echocardiogram which showed preserved LVEF with preserved anteroseptal wall motion. He does have mild inferior wall hypokinesia which is unchanged from prior exam. I asked obtain updated labs, CBC, CMP, magnesium, troponin levels Start aspirin, start IV heparin drip discontinue Pradaxa Physical examination: Gen: This is a 63-year-old male in no acute distress VS: reviewed HEENT: Head is atraumatic, normocephalic. Pupils equal, round. Sclerae is ani cteric. NECK: Supple. No JVD. LUNGS: Clear to auscultation. No wheezes or rhonchi. No intercostal retractions. HEART: Regular rate and rhythm. 2/6 systolic ejection murmur. ABDOMEN: Soft No tenderness. EXTREMITIES: No pedal edema. No calf tenderness. NEUROLOGICAL: Patient is awake, alert and oriented x3. Assessment: Chest pain and dynamic EKG changes. Low abdominal pain rule out intestinal angina History of coronary artery disease with previous stenting Peripheral vascular disease Hypertension Hyperlipidemia Non-small cell lung cancer Tobacco use and dependence Plan: Start aspirin, continue Plavix Start IV heparin drip Start nitroglycerin drip Start metoprolol succinate 25 mg daily Monitor hemodynamics, monitor CBC, CMP, troponins Objective - Vital Signs Vital signs: Vital Signs Temp 98.1 F 01/27/24 23:15 Pulse 73 01/28/24 01:05 Resp 18 01/28/24 00:14 BP 126/74 01/28/24 01:05 Pulse Ox 99 01/28/24 00:14 FiO2 Intake & Output 01/27/24 01/27/24 01/28/24 06:59 18:59 06:59 Intake Total 10 380 10 Balance 10 380 10 Weight 58.2 kg Intake: IV 10 20 10 0.9 10 10 Invasive Line 1 20 Oral 360 Other: Voiding Method Toilet Toilet Toilet # Voids 1 3 1 - Labs CBC & Chem 7: 01/26/24 05:21 01/28/24 00:08 Labs: Abnormal Lab Results - Last 24 Hours (Table) 01/28/24 Range/Units 00:08 Sodium 133 L (137-145) mmol/L Microbiology - Last 24 Hours (Table) 01/24/24 17:28 Stool Culture - Preliminary Stool
[2024-01-28 01:34] LABS: Basophils # (A) 0.1 k/uL (0-0.2); Basophils % (A) 1 %; Eosinophils # (A) 0.6 k/uL (0-0.7); Eosinophils % (A) 9 %; HCT 44.8 % (39.0-53.0); HGB 15.4 gm/dL (13.0-17.5); Lymphocytes # (A) 1.4 k/uL (1.0-4.8); Lymphocytes % (A) 20 %; MCH 33.6 pg (25.0-35.0); MCHC 34.4 g/dL (31.0-37.0); MCV 97.5 fL (80.0-100.0); Mean Platelet Volume 8.7; Monocytes # (A) 0.5 k/uL (0-1.0); Monocytes % (A) 7 %; Neutrophils # (A) 4.4 k/uL (1.3-7.7); Neutrophils % (A) 62 %; Platelet Count 243 k/uL (150-450); RDW 14.8 % (11.5-15.5); WBC 7.1 k/uL (3.8-10.6)
[2024-01-28] MEDS: MORPHINE SULFATE 4 MG/ML SYRINGE IVP PRN (05:16)
[2024-01-28 07:21] LABS: Basophils # (A) 0.1 k/uL (0-0.2); Basophils % (A) 1 %; Eosinophils # (A) 0.7 k/uL (0-0.7); Eosinophils % (A) 11 %; Lymphocytes # (A) 1.3 k/uL (1.0-4.8); Lymphocytes % (A) 19 %; MCH 32.1 pg (25.0-35.0); MCHC 31.8 g/dL (31.0-37.0); MCV 100.7 fL (80.0-100.0); Macrocytosis Slight; Mean Platelet Volume 7.9; Monocytes # (A) 0.4 k/uL (0-1.0); Monocytes % (A) 6 %; Neutrophils # (A) 4.2 k/uL (1.3-7.7); Neutrophils % (A) 61 %; Platelet Count 255 k/uL (150-450); RBC 4.67 m/uL (4.30-5.90); RDW 14.1 % (11.5-15.5); WBC 6.8 k/uL (3.8-10.6)
[2024-01-28 07:31] LABS: ALT 9 U/L (4-49); AST 21 U/L (17-59); African American GFR (CKD) 78 (>60 ml/min/1.73 sqM); Albumin 3.9 g/dL (3.5-5.0); Alkaline Phosphatase 63 U/L (38-126); Anion Gap 4 mmol/L; Blood Urea Nitrogen 16 mg/dL (9-20); Carbon Dioxide 29 mmol/L (22-30); Chloride 102 mmol/L (98-107); Glucose 91 mg/dL (74-99); Non-African American GFR(CKD) 68 (>60 ml/min/1.73 sqM); Potassium 4.2 mmol/L (3.5-5.1); Sodium 135 mmol/L (137-145); Total Bilirubin 0.8 mg/dL (0.2-1.3); Total Protein 6.9 g/dL (6.3-8.2)
[2024-01-28 07:45] LABS: Glucose,Whole Blood 89 mg/dL (70-110)
[2024-01-28] MEDS: DILTIAZEM ORAL 30 MG TAB PO STA (08:10)
[2024-01-28] MEDS: ASPIRIN 81 MG PO SCH (08:10)
--- NOTE | 2024-01-28 08:29 | P.PN ---
Subjective Progress Note Date: 01/28/24 Patient had an a team called this morning. Patient was bradycardic, hypotensive and had chest pain. Patient is currently on the floor. He states he has no significant abdominal pain currently. Patient is most likely having cardiac ischemia. Patient will be evaluated by cardiology and possibly transfer to the ICU. Objective - Vital Signs Vital signs: Vital Signs Temp 97.9 F 01/28/24 04:00 Pulse 56 L 01/28/24 08:21 Resp 18 01/28/24 08:21 BP 146/68 01/28/24 08:07 Pulse Ox 99 01/28/24 08:07 FiO2 Intake & Output 01/27/24 01/28/24 01/28/24 18:59 06:59 18:59 Intake Total 380 10 Balance 380 10 Weight 58.2 kg Intake: IV 20 10 0.9 10 Invasive Line 1 20 Oral 360 Other: Voiding Method Toilet Toilet Toilet # Voids 3 1 - Labs CBC & Chem 7: 01/28/24 06:58 01/28/24 06:58 Labs: Abnormal Lab Results - Last 24 Hours (Table) 01/28/24 01/28/24 01/28/24 Range/Units 00:08 06:58 06:58 MCV 100.7 H (80.0-100.0) fL APTT (22.0-30.0) sec Sodium 133 L 135 L (137-145) mmol/L 01/28/24 Range/Units 06:58 MCV (80.0-100.0) fL APTT 61.2 H (22.0-30.0) sec Sodium (137-145) mmol/L Microbiology - Last 24 Hours (Table) 01/24/24 17:28 Stool Culture - Final Stool
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
--- NOTE | 2024-01-28 10:30 | P.PN ---
Subjective Progress Note Date: 01/28/24 Rubén Young is a 63-year-old male patient who presented with complaints of abdominal pain and cramping patient reports nausea and vomiting that has increased over the past few days. Patient has a past medical history of stage IV lung cancer, COPD, CVA, hyperlipidemia, PA, osteoarthritis, PE and ongoing nicotine dependence. CT of abdomen and pelvis completed showing airspace consolidation of the right lung base concerning for pneumonia small right para pneumonic effusion wall thickening of small bowel concerning for enteritis. Lab work revealing white blood cell 9.3, hemoglobin 16.1. UA negative. Influenza RSV and COVID-19 negative. Creatinine 0.86 bun 15. At this time patient was started on azithromycin and Rocephin for pneumonia. Two-view chest x-ray has been ordered. Will consult surgical, pulmonary and oncology services. At this time patient reports improvement with abdominal pain. Patient denies any chest pain or shortness of breath. Patient denies nausea vomiting or diarrhea. Patient denies any urinary burning or frequency On 01/24/2024 patient is alert and oriented x 3. Diet has been advanced to regular per surgical services. Urology services consulted due to concerns of bladder abnormality and outpatient plans for cystoscopy. I will at this time patient denies chest pain or shortness of breath. Patient denies nausea vomiting or diarrhea. Patient denies any urinary burning or frequency. Current vital signs temp 97.9, heart rate 78, respiratory rate 16, blood pressure 111/66 with pulse ox of 98% on room air On 01/25/2024 patient was seen and examined on the medical floor he is alert and oriented x 3 in no apparent distress he is still complaining of episodes of severe pain in the abdomen otherwise he denies any complaints there is no fever or chills no headache or dizziness no chest pain no shortness of breath no cough no nausea or vomiting no abdominal pain no diarrhea no blood in the stools he has some discomfort with urination no frequency or urgency and no hematuria On 01/26/2024 patient is alert and oriented x 3. Patient evaluated by multiple consults no further inpatient workup. Plans for outpatient cystoscopy. Patient to follow-up with PCP and consulting providers for further management patient will be DC'd on Bentyl. patient denies chest pain or shortness breath. denies nausea vomiting diarrhea. On 01/27/2024, patient was seen and examined on the medical floor, he is alert and oriented x 3 in no apparent distress, he is still having episodes of severe abdominal pain, otherwise he denies any complaints, there is no fever or chills no headache or dizziness no chest pain no shortness of breath no cough no nausea or vomiting, no diarrhea no blood in the stools no burning with urination no frequency or urgency and no hematuria. Plan is for discharge yesterday, however general surgery raised the possibility of ischemic bowel disease, patient was seen by cardiology and underwent mesenteric angiogram, which failed to reveal any evidence of mesenteric vascular obstruction. Postprocedure patient had a complaint of double vision that lasted several hours, CT scan of the brain was done without contrast and revealed no evidence of intracranial bleed, neurology consultation was requested for evaluation of double vision, patient stated that he woke up this morning and he did not have double vision. On 01/28/2024 patient is alert and oriented x 3. This morning patient had episode of chest pain bradycardia. Okay EKG was obtained showing ST elevation. Cardiology was consulted and patient was started on a heparin drip. Plans for cardiac catheterization this morning. Repeat EKG ST elevation was resolved by cardiology services. Neurology surgical rehab and cardiology services following. At this time patient denies chest pain or shortness of breath. Patient denies nausea vomiting or diarrhea. Patient denies any urinary burning or frequency. Current vital signs temp temp 97.6, heart rate 60, respiratory rate 18, blood pressure 146/68 with a pulse ox of 99% on room air. Objective - Vital Signs Vital signs: Vital Signs Temp 97.9 F 01/28/24 04:00 Pulse 56 L 01/28/24 08:21 Resp 18 01/28/24 08:21 BP 146/68 01/28/24 08:07 Pulse Ox 100 01/28/24 09:14 FiO2 Intake & Output 01/27/24 01/28/24 01/28/24 18:59 06:59 18:59 Intake Total 380 10 Balance 380 10 Weight 58.2 kg Intake: IV 20 10 0.9 10 Invasive Line 1 20 Oral 360 Other: Voiding Method Toilet Toilet Toilet # Voids 3 1 - Exam Head normocephalic Neck supple Lungs clear to auscultation bilaterally no wheezing or crackles Heart regular rate and rhythm S1-S2, no rub or gallop Abdomen is soft nontender nondistended positive bowel sounds no hepatosplen omegaly Extremities no edema Neuro alert and orientated to 3 - Labs CBC & Chem 7: 01/28/24 06:58 01/28/24 06:58 Labs: Abnormal Lab Results - Last 24 Hours (Table) 01/28/24 01/28/24 01/28/24 Range/Units 00:08 06:58 06:58 MCV 100.7 H (80.0-100.0) fL APTT (22.0-30.0) sec Sodium 133 L 135 L (137-145) mmol/L 01/28/24 Range/Units 06:58 MCV (80.0-100.0) fL APTT 61.2 H (22.0-30.0) sec Sodium (137-145) mmol/L Microbiology - Last 24 Hours (Table) 01/24/24 17:28 Stool Culture - Final Stool Assessment and Plan Assessment: 1. Abdominal pain with nausea and vomiting secondary to possible enteritis 2. Pneumonia. Per pulmonary services no clinical suspicion for pneumonia 3. History of stage IV lung cancer 4. History of pulmonary embolism maintained on Pradaxa 5. History of coronary artery disease with previous cardiac stents 6. History of emphysema 7. History of TIA 8. Ongoing nicotine dependence 9. Chest pain with EKG changes plans for cardiac catheterization today 01/28/2024 patient started on IV heparin DVT prophylaxis Pradaxa. GI prophylaxis Pepcid Repeat two-view chest x-ray has been ordered Surgical, pulmonary and oncology services consulted Patient has been started on IV antibiotics Repeat labs ordered
[2024-01-28] MEDS: MIDAZOLAM 2 MG/2 ML VIAL IVP ONE (11:25)
[2024-01-28] MEDS: LIDOCAINE 1% INJ 10MG/ML (20 ML MDV) SQ ONE ×2 (11:26→11:33)
[2024-01-28] MEDS: fentaNYL (PF) 50 MCG/ML 2 ML AMP IVP ONE (11:27)
[2024-01-28] MEDS: SODIUM CHLORIDE 0.9% 1,000 ML IV ONE (11:27)
[2024-01-28] MEDS: NITROGLYCERIN 1000MCG/10ML SYRINGE INTRAARTER ONE (11:39)
[2024-01-28] MEDS: VERAPAMIL SYRINGE (5 MG/10 ML) INTRAARTER ONE (11:40)
[2024-01-28] MEDS: PHENYLEPHRINE-0.9% NACL SYG 1,000 MCG/10 ML SYRINGE IVP ONE (11:45)
[2024-01-28] MEDS: HEPARIN SODIUM,PORCINE 10,000 UNIT in SODIUM CHLORIDE 0.9% 1,000 ML IRRIGATION ONE (11:59)
[2024-01-28] MEDS: HEPARIN SODIUM,PORCINE (1 ML) 2,500 UNIT in SODIUM CHLORIDE 0.9% 250 ML IRRIGATION ONE (11:59)
[2024-01-28] MEDS: SODIUM CHLORIDE 0.9% 500 ML 500 ML IV ONE (12:01)
[2024-01-28] MEDS: IOPAMIDOL-370 100ML BTL INJ ONE ×2 (12:25→12:52)
--- NOTE | 2024-01-28 13:19 | P.PN ---
Subjective Progress Note Date: 01/26/24 Principal diagnosis: Reason for follow-up is lower abdominal pain and a question of gastro enteritis Patient is a 63-year-old male with a past medical history significant for hyperlipidemia CVA TIA COPD DC osteoarthritis patient presented to the hospital for evaluation of lower abdominal pain that has been going on for about 2 months was also having diarrhea with concern for possible gastroenteritis probably this consultation he did have a CT that was negative for any diverticulitis. Patient is status post abdominal angiography did not mention any evidence of mesenteric ischemia On today's evaluation that is 01/26/2024, the patient continues to be afebrile, the patient is on room air and breathing comfortably, the Pt denies having any chest pain or cough, the patient lower abdominal pain has slightly decreased in intensity no nausea no vomiting or any loose stools Patient did have white count of 7.14, creatinine is 1.2 blood and stool culture have been negative so far Objective - Vital Signs Vital signs: Vital Signs Temp 97.7 F 01/26/24 13:49 Pulse 72 01/26/24 13:49 Resp 18 01/26/24 13:49 BP 115/72 01/26/24 13:49 Pulse Ox 100 01/26/24 12:32 FiO2 Intake & Output 01/25/24 01/26/24 01/26/24 18:59 06:59 18:59 Intake Total 1320 590 50 Balance 1320 590 50 Intake: IV 50 Oral 1320 590 Other: Voiding Method Toilet Toilet Toilet # Voids 2 3 - Exam GENERAL DESCRIPTION: An elderly male lying in bed in no distress RESPIRATORY SYSTEM: Unlabored breathing , decreased breath sounds at bases HEART: S1 S2 regular rate and rhythm , ABDOMEN: Soft , no tenderness EXTREMITIES: No edema feet - Labs CBC & Chem 7: 01/28/24 06:58 01/28/24 06:58 Labs: Abnormal Lab Results - Last 24 Hours (Table) 01/26/24 01/26/24 Range/Units 05:21 05:21 MCH 32.3 H (27.0-32.0) pg RDW 15.1 H (11.5-14.5) % Eosinophils # 0.80 H (0.04-0.35) X 10*3/uL ALT 7 L (10-49) U/L Albumin/Globulin Ratio 1.58 L (1.60-3.17) Ratio Microbiology - Last 24 Hours (Table) 01/23/24 01:40 Blood Culture - Preliminary Blood 01/23/24 01:30 Blood Culture - Preliminary Blood 01/24/24 17:28 Stool Culture - Preliminary Stool Assessment and Plan (1) Gastroenteritis Current Visit: Yes Status: Acute Code(s): K52.9 - NONINFECTIVE GASTROENTERITIS AND COLITIS, UNSPECIFIED SNOMED Code(s): 47824301 (2) Lower abdominal pain Current Visit: Yes Status: Acute Code(s): R10.30 - LOWER ABDOMINAL PAIN, UNSPECIFIED SNOMED Code(s): 11604528 Plan: 1patient presented to hospital predominantly with lower abdominal pain described medial band across the lower abdominal area and apparently also have some nausea and vomiting on admission that subsequently has resolved initial CT abdominal pelvis with evidence of gastroenteritis with repeat CT did show filling defect along the posterior urinary bladder wall and stable lytic metastasis within the lumbar spine, with etiology of his symptoms related to his treatment that he is receiving for his 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 difficile PCR not done and stool culture currently pending 3-patient is afebrile white count normal, to continue with symptomatic treatment with Questran and monitor clinical course closely Dictation was produced using [email or web address] dictation software. please excuse any grammatical, word or spelling errors. Time with Patient: Less than 30
--- NOTE | 2024-01-28 13:19 | P.PN ---
Subjective Progress Note Date: 01/27/24 Principal diagnosis: Reason for follow-up is lower abdominal pain and a question of gastro enteritis Patient is a 63-year-old male with a past medical history significant for hyperlipidemia CVA TIA COPD [place] osteoarthritis patient presented to the hospital for evaluation of lower abdominal pain that has been going on for about 2 months was also having diarrhea with concern for possible gastroenteritis probably this consultation he did have a CT that was negative for any diverticulitis. Patient is status post abdominal angiography did not mention any evidence of mesenteric ischemia On today's evaluation that is 01/27/2024,the patient remains to be afebrile, patient is on room air not requiring supplemental oxygen and denies any shortness of breath no chest pain or cough.Patient denies having any nausea or vomiting, abdominal pain has decreased intensity no diarrhea. Patient did not have any blood pressure today Objective - Vital Signs Vital signs: Vital Signs Temp 98.1 F 01/27/24 15:47 Pulse 86 01/27/24 15:47 Resp 18 01/27/24 15:47 BP 100/63 01/27/24 15:47 Pulse Ox 99 01/27/24 15:47 FiO2 Intake & Output 01/27/24 01/27/24 01/28/24 06:59 18:59 06:59 Intake Total 10 380 Balance 10 380 Weight 58.2 kg Intake: IV 10 20 0.9 10 Invasive Line 1 20 Oral 360 Other: Voiding Method Toilet Toilet # Voids 1 3 - Exam GENERAL DESCRIPTION: An elderly male lying in bed in no distress RESPIRATORY SYSTEM: Unlabored breathing , decreased breath sounds at bases HEART: S1 S2 regular rate and rhythm , ABDOMEN: Soft , no tenderness EXTREMITIES: No edema feet - Labs CBC & Chem 7: 01/28/24 06:58 01/28/24 06:58 Labs: Microbiology - Last 24 Hours (Table) 01/24/24 17:28 Stool Culture - Preliminary Stool Assessment and Plan (1) Gastroenteritis Current Visit: Yes Status: Acute Code(s): K52.9 - NONINFECTIVE GASTROENTERITIS AND COLITIS, UNSPECIFIED SNOMED Code(s): 15660136 (2) Lower abdominal pain Current Visit: Yes Status: Acute Code(s): R10.30 - LOWER ABDOMINAL PAIN, UNSPECIFIED SNOMED Code(s): 42660531 Plan: 1patient presented to hospital predominantly with lower abdominal pain described medial band across the lower abdominal area and apparently also have some nausea and vomiting on admission that subsequently has resolved initial CT abdominal pelvis with evidence of gastroenteritis with repeat CT did show filling defect along the posterior urinary bladder wall and stable lytic metastasis within the lumbar spine, with etiology of his symptoms related to his treatment that he is receiving for his 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 difficile PCR not done and stool culture so far negative 3-patient mentions some improvement in the symptoms to continue with the Questran and monitor clinical course closely Dictation was produced using [employer] dictation software. please excuse any grammatical, word or spelling errors. Time with Patient: Less than 30
--- NOTE | 2024-01-28 13:45 | P.PN ---
Subjective Progress Note Date: 01/28/24 Patient was seen for a follow-up. Patient is laying in the bed. Patient just came back from cardiac catheterization. Apparently this morning patient started having chest pain with evidence of ST elevation on the EKG and became hypotensive. But the chest pain resolved, the blood pressure went up. Patient underwent cardiac catheterization, in which there was evidence of reocclusion of one of the stent, which was ballooned. Patient states the diplopia has resolved. No new neurological symptoms. No headache. Objective - Vital Signs Vital signs: Vital Signs Temp 97.9 F 01/28/24 04:00 Pulse 50 L 01/28/24 13:21 Resp 18 01/28/24 13:21 BP 106/60 01/28/24 13:21 Pulse Ox 100 01/28/24 13:21 FiO2 Intake & Output 01/27/24 01/28/24 01/28/24 18:59 06:59 18:59 Intake Total 380 10 700 Balance 380 10 700 Weight 58.2 kg Intake: IV 20 10 700 0.9 10 Invasive Line 1 20 Oral 360 Other: Voiding Method Toilet Toilet Toilet # Voids 3 1 - Exam Mental status, speech and language functions are normal. Examination nonfocal. - Labs CBC & Chem 7: 01/28/24 06:58 01/28/24 06:58 Labs: Abnormal Lab Results - Last 24 Hours (Table) 01/28/24 01/28/24 01/28/24 Range/Units 00:08 06:58 06:58 MCV 100.7 H (80.0-100.0) fL APTT (22.0-30.0) sec Sodium 133 L 135 L (137-145) mmol/L 01/28/24 Range/Units 06:58 MCV (80.0-100.0) fL APTT 61.2 H (22.0-30.0) sec Sodium (137-145) mmol/L Microbiology - Last 24 Hours (Table) 01/23/24 01:40 Blood Culture - Final Blood 01/23/24 01:30 Blood Culture - Final Blood 01/24/24 17:28 Stool Culture - Final Stool Assessment and Plan Assessment: * Probable TIA manifesting with double vision, that started right after the abdominal angiography. Symptoms lasted for rest of the day, but has resolved as of this morning. * Abdominal pain, possibly secondary to enteritis * Stage IV lung cancer * History of PE, maintained on Pradaxa * History of CAD * Emphysema * Previous history of TIA * Tobacco use Plan: * Patient probably had a TIA. Abdominal aorta had mild diffuse calcification noted on abdominal angiography report. Possible small embolic cholesterol pl aque may have triggered the TIA. Patient will undergo workup for TIA. His symptoms have now completely resolved. NIH stroke scale is 0. * CTA of head and neck revealed no evidence of dissection of the cervical internal carotid arteries or vertebral arteries or any evidence of significant stenosis at the carotid bifurcations. No evidence of intracranial high-grade stenosis or intracranial aneurysm. * Pending 2D echo evaluate for embolic source * Patient's lipid panel with cholesterol 113, LDL 57, HDL 41 and triglycerides 68 on 03/16/2023. Lipids are well-controlled. * Patient is not diabetic. Blood glucose normal. * Continue Pradaxa and Plavix. * Recommend complete tobacco cessation. * Dr. Ash Hogan to resume neurology service from the morning.
[2024-01-28] MEDS ORDERED: NITROGLYCERIN SL TABS 0.4 MG TAB SUBLINGUAL PRN (14:49)
[2024-01-28] MEDS ORDERED: RX INFO: IV CONTRAST WAS GIVEN 1 EACH MISC MISCELLANE PRN (14:49)
[2024-01-28] MEDS ORDERED: MAG HYDROX/AL HYDROX/SIMETH 30 ML CUP PO PRN (14:49)
[2024-01-28] MEDS ORDERED: ATROPINE SULFATE 0.1 MG/ML 10ML SYRINGE IV PRN (14:49)
[2024-01-28] MEDS ORDERED: ZOLPIDEM 5 MG TAB PO PRN (14:49)
--- NOTE | 2024-01-28 14:49 | P.PRCINT ---
Percutaneous Coronary Int. - Percutaneous Coronary Intervention Percutaneous Coronary Intervention: PROCEDURES PERFORMED: Bilateral coronary angiography, ultrasound guided arterial access, PTCA distal RCA with a 3.0 x 12mm NC balloon, IVUS RCA INDICATION: Transient ST elevations both inferiorly and anteriorly CONSENT:I have discussed the risks, benefits and alternative therapies for the above-mentioned procedure and for both sedation/analgesia as well as necessary blood product administration, if indicated, as they pertain to this patient. The patient has indicated understanding and acceptance of the risks and procedures discussed. PROCEDURE: After the risks, benefits and alternatives of the above mentioned procedure explained in detail with the patient, informed consent was obtained. Patient was taken to the catheterization lab and prepped and draped in usual fashion. Ultrasound guidance was used to assess for arterial access. 1% lidocaine was used to anesthetize the left radial artery with right radial artery previously having some spasm. A 6-Pashto sheath was placed in the left radial artery using modified Seldinger technique and ultrasound guidance. Left coronary angiography was performed with a 5-Pashto JL 4.0 catheter and right coronary angiography was performed with a 5-Pashto AR2 catheter in various views. The decision was made to perform PTCA of the RCA. A 6Fr AL 0.75 guide catheter was used to engage the RCA. A 0.014 BMW wire was advanced into the distal PLV. An additional 0.014 whisper wire was advanced into the distal PDA. Balloon angioplasty was performed initially with a 2.0 balloon. Next IVUS was performed which showed well expanded stent with neointimal hyperplasia with reference vessel 3.0mm. Balloon angioplasty was performed with a 3.0mm NC balloon and then with a 2.25mm NC balloon more distally. Final angiograms were performed. Preintervention there was 99% stenosis and ERIKA 2 flow and post intervention there was < 10% stenosis with ERIKA 3 flow. The left radial sheath was removed and a TR band was placed with hemostasis achieved. The patient tolerated the procedure well. Patient was transported back to the post catheterization holding area in stable condition. Conscious Sedation: Patient was monitored under the direct supervision of myself for conscious sedation using Versed and fentanyl for a total duration of 88 minutes HEMODYNAMICS: Ao: 102/67 SELECTIVE CORONARY ARTERIOGRAPHY: LEFT MAIN: The left main is a large caliber vessel which bifurcates into the LAD and circumflex. There is no significant stenosis. LEFT ANTERIOR DESCENDING CORONARY ARTERY: LAD is a large caliber vessel which wraps around to the apex. There is mild 20-30% mid LAD stenosis. LEFT CIRCUMFLEX CORONARY ARTERY: Left circumflex is a moderate caliber vessel with mild luminal irregularities. RIGHT CORONARY ARTERY: The right coronary artery is a large caliber vessel which gives off a PDA and PLV branch and is the dominant vessel. There is long proximal to distal RCA stent extending into the PLV branch. There is a long 95- 99% distal RCA stenosis. There is mild 30% proximal stenosis of the PDA ostium. FINAL IMPRESSION: 1. CAD as described above including 99% distal RCA, 20-30% mid LAD stenosis 2. S/p PTCA distal RCA with a 3.0 x 12mm NC balloon 3. Transient anterior ST elevations likely related to vasospasm PLAN: 1. Aggressive risk factor modification per most recent ACC/AHA guidelines. 2. Continue dual antiplatelets for minimum of 6 months 3. Consider repeat angiography in 6-8 weeks and if recurrent neointimal hyperplasia, consider brachytherapy 4. Tobacco cessation recommended and patient agreeable. [place] quit line information given. 5. Transient anterior ST elevations likely related to vasospasm and increase antispasmotic as able.
[2024-01-28] MEDS: RANOLAZINE 500 MG TAB.ER.12H PO SCH (20:02)
[2024-01-28] MEDS: SODIUM CHLORIDE 0.9% 1,000 ML in EMPTY BAG 1 BAG IV SCH (20:03)
[2024-01-29 05:05] VITALS: RESP 16
[2024-01-29 06:36] LABS: Basophils % (A) 1 %; Eosinophils # (A) 0.6 k/uL (0-0.7); Eosinophils % (A) 9 %; HCT 45.2 % (39.0-53.0); HGB 14.5 gm/dL (13.0-17.5); Lymphocytes % (A) 15 %; MCV 100.1 fL (80.0-100.0); Mean Platelet Volume 8.2; Monocytes # (A) 0.4 k/uL (0-1.0); Monocytes % (A) 6 %; Neutrophils # (A) 4.5 k/uL (1.3-7.7); Neutrophils % (A) 68 %; Platelet Count 242 k/uL (150-450); RBC 4.52 m/uL (4.30-5.90); WBC 6.7 k/uL (3.8-10.6)
[2024-01-29 06:47] LABS: ALT 9 U/L (4-49); AST 51 U/L (17-59); African American GFR (CKD) >90 (>60 ml/min/1.73 sqM); Albumin 3.5 g/dL (3.5-5.0); Alkaline Phosphatase 59 U/L (38-126); Anion Gap 4 mmol/L; Blood Urea Nitrogen 13 mg/dL (9-20); Calcium 8.8 mg/dL (8.4-10.2); Carbon Dioxide 27 mmol/L (22-30); Chloride 105 mmol/L (98-107); Glucose 80 mg/dL (74-99); Non-African American GFR(CKD) 83 (>60 ml/min/1.73 sqM); Potassium 4.3 mmol/L (3.5-5.1); Sodium 136 mmol/L (137-145); Total Bilirubin 0.9 mg/dL (0.2-1.3); Total Protein 6.1 g/dL (6.3-8.2)
[2024-01-29 11:46] VITALS: BMI 22.6
--- NOTE | 2024-01-29 12:40 | P.PN ---
Subjective Progress Note Date: 01/29/24 CHIEF COMPLAINT: Abdominal pain HISTORY OF PRESENT ILLNESS: Patient was sent to the cardiac floor over the weekend with chest pain and had cardiac procedure with PTCA distal RCA with balloon. Patient lying in bed comfortably. He has no new complaints. He denies any abdominal pain. Reports tolerating diet. He reports having bowel movements. Afebrile. WBC 6.7 Hgb 14.5 PHYSICAL EXAM: VITAL SIGNS: Reviewed. GENERAL: Well-developed in no acute distress. ABDOMEN: Soft. Nondistended. Nontender NEUROLOGIC: Alert and oriented. Cranial nerves II through XII grossly intact. ASSESSMENT: 1. Lower abdominal pain. Resolved. The repeat CAT scan no longer reported evidence of enteritis. 2. Diarrhea now resolved. likely related to immunotherapy medication 3. Stage IV lung cancer PLAN: -No surgical intervention planned -Recommend to follow-up with urology outpatient Physician Boy'S Adviser note has been reviewed by physician. Signing provider agrees with the documented findings, assessment, and plan of care. Objective - Vital Signs Vital signs: Vital Signs Temp 97.9 F 01/29/24 08:00 Pulse 67 01/29/24 08:00 Resp 16 01/29/24 08:00 BP 128/74 01/29/24 08:00 Pulse Ox 98 01/29/24 08:00 FiO2 Intake & Output 01/28/24 01/29/24 01/29/24 18:59 06:59 18:59 Intake Total 1240 360 240 Balance 1240 360 240 Weight 59.7 kg 59.7 kg Intake: IV 700 Intake, IV Titration 360 Amount Sodium Chloride 0.9% 1, 360 000 ml In Empty Bag 1 bag @ 1 ML/KG/HR 58.2 mls/hr IV .[id number] [facility] Rx#: [id number] Oral 540 240 Other: Voiding Method Toilet Toilet Toilet # Voids 2 - Labs CBC & Chem 7: 01/29/24 06:19 01/29/24 06:19 Labs: Abnormal Lab Results - Last 24 Hours (Table) 01/29/24 01/29/24 Range/Units 06:19 06:19 MCV 100.1 H (80.0-100.0) fL Sodium 136 L (137-145) mmol/L Total Protein 6.1 L (6.3-8.2) g/dL Microbiology - Last 24 Hours (Table) 01/23/24 01:40 Blood Culture - Final Blood 01/23/24 01:30 Blood Culture - Final Blood
--- NOTE | 2024-01-29 12:43 | CA ---
Transthoracic Echo Report Name: Rubén Young Age: 63 Gender: M : 1960 Exam Date: 01/29/2024 10:26 Exam Location: [place] [facility] Ht (in): 64 Wt (lb): 128 Ordering Physician: Sofy Kee MD Attending/Referring Phys: Instrument And Controls Technician Elle De Los Santos RDCS Procedure CPT: Indications: tia Cardiac Hx: Technical Quality: Fair Contrast 1: Total Dose (mL): Contrast 2: Total Dose (mL): MEASUREMENTS (Male / Female) Normal Values 2D ECHO LV Diastolic Diameter PLAX 4.6 cm 4.2 - 5.9 / 3.9 - 5.3 cm LV Systolic Diameter PLAX 3.4 cm IVS Diastolic Thickness 1.0 cm 0.6 - 1.0 / 0.6 - 0.9 cm LVPW Diastolic Thickness 1.0 cm 0.6 - 1.0 / 0.6 - 0.9 cm LV Relative Wall Thickness 0.4 RV Internal Dim ED PLAX 4.0 cm LVOT Diameter 1.7 cm LA Volume 57.1 cm??? 18 - 58 / 22 - 52 cm??? LA Volume Index 35.2 cm???/m??? 16 - 28 cm???/m??? M-MODE Aortic Root Diameter MM 2.8 cm LA Systolic Diameter MM 3.3 cm LA Ao Ratio MM 1.2 AV Cusp Separation MM 1.3 cm DOPPLER AV Peak Velocity 113.6 cm/s AV Peak Gradient 5.2 mmHg AV Mean Velocity 81.0 cm/s AV Mean Gradient 2.9 mmHg AV Velocity Time Integral 26.2 cm LVOT Peak Velocity 84.7 cm/s LVOT Peak Gradient 2.9 mmHg LVOT Velocity Time Integral 19.5 cm LVOT Stroke Volume 43.9 cm??? LVOT Stroke Volume Index 27.1 ml/m??? LVOT Cardiac Index 1568.5 cm???/min???m??? AV Area Cont Eq vti 1.7 cm??? AV Area Cont Eq pk 1.7 cm??? MV Area PHT 3.5 cm??? Mitral E Point Velocity 86.7 cm/s Mitral A Point Velocity 80.9 cm/s Mitral E to A Ratio 1.1 MV Deceleration Time 216.5 ms MV E' Velocity 6.6 cm/s Mitral E to MV E' Ratio 13.1 FINDINGS Left Ventricle Left ventricular cavity size normal. Left ventricular wall thickness normal. Left ventricular ejection fraction is estimated at 50-55 %. Grade 1 diastolic dysfunction. Right Ventricle Mild right ventricular dilatation. Right ventricular systolic pressure within normal limits. Right Atrium Normal right atrial size. Left Atrium Moderately increased left atrial volume. Mitral Valve Structurally normal mitral valve. Mitral valve thickened. Mild mitral annular calcification. Mild mitral regurgitation. Centrally directed mitral regurgitation jet. Aortic Valve Trileaflet aortic valve. No aortic valve stenosis or regurgitation. Aortic valve sclerosis. Tricuspid Valve Structurally normal tricuspid valve. Mild tricuspid regurgitation. Pulmonic Valve Structurally normal pulmonic valve. Trace pulmonic regurgitation. Pericardium No pericardial effusion. Aorta Normal size aortic root and proximal ascending aorta. CONCLUSIONS Normal LV size, fair systolic function, mild mitral and tricuspid regurgitation. No significant pulmonary hypertension. Mitral annular calcification noted no pericardial effusion Previewed by: Dr. Marvel Morales MD (Electronically Signed) Final Date: 29 January 2024 12:42
--- NOTE | 2024-01-29 13:49 | P.PN ---
Subjective Progress Note Date: 01/29/24 This is a 63-year-old male patient of Dr. Mcfarland with past medical history of coronary artery disease status post angioplasty, peripheral vascular disease, hypertension, dyslipidemia, non-small cell lung cancer, tobacco use and dependence. We have been asked to evaluate the patient for abdominal angina. Patient states that he has had ongoing pain in the lower abdomen on and off and is better after he burps or passes gas. He states he has also had weight loss. Symptoms have been going on for the past 2 months. He continues to be a smoker. Blood pressure 145/83, heart rate 74, pulse ox 99% on room air. Chest x-ray: Right lower lobe and perihilar consolidation with small effusion correlate for pneumonia versus heart failure CT of the abdomen pelvis revealed no evidence of acute abdominal/pelvic process. Filling defect along the urinary bladder. Underlying neoplasm not excluded. 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 Laboratory studies: WBC 7.1, hemoglobin 14.9. BUN 10 creatinine 1.11. Influenza testing, COVID and RSV not detected. Home cardiac medications: Cardiac catheterization performed 05/19/2023 status post stent of the proximal RCA, x 2, PTCA of the ostial PLB. Echocardiogram performed 01/20/2023 revealed normal EF, mild TR, mild MR. Lexiscan stress test performed 02/14/2020 revealed normal EF, normal study. 01/27/2024 Patient underwent peripheral angiogram to look for any SMA or celiac artery stenosis. His peripheral angiogram did not show any significant obstructive disease. His right radial artery appears intact. Denies any chest pain chest p ressure. 01/28/2024 Cardiology was asked to evaluate the patient on emergent basis because of nicola rns of STEMI. Around midnight patient got up to use the restroom and when he went back to his bed he was having some substernal chest heaviness along with dizziness. His telemetry showed concerns of ST elevations in anteroseptal leads. For this nurse performed a twelve-lead ECG which showed ST elevations of 1 to 2 mm in lead V2 and V3. I evaluated the patient emergently. By the time of evaluating the patient, he was chest pain-free. We repeated an ECG and his ST elevations were resolved with normal ST segments. I performed a bedside echocardiogram which showed preserved LVEF with preserved anteroseptal wall motion. He does have mild inferior wall hypokinesia which is unchanged from prior exam. I asked obtain updated labs, CBC, CMP, magnesium, troponin levels Start aspirin, start IV heparin drip discontinue Pradaxa 01/28 Patient is seen and examined. Blood pressure 128/74, heart rate is in the 60s, heart rate 40s and 50s yesterday afternoon, pulse ox 98% on room air. Patient i s noted to have ST elevation on telemetry. He denies having any chest pain. Yesterday he was taken to the [facility] with Dr. Zuluaga which found coronary artery disease with 99% distal RCA, 20 to 30% mid LAD stenosis status post PTCA with balloon to the RCA, transient anterior ST elevations likely related to vasospasms. Plan is for aggressive risk factor modification, continue dual antiplatelet for 6 months minimum, consider repeat angiography in 6 to 8 weeks and if recurrent knee joints are normal hyperplasi, consider brachytherapy echocardiogram is currently pending. May consider adding Procardia depending on patient's EF. Regarding statin, patient is not currently taking a statin as he states he has had trouble with neck spasms. He is willing to give it a try now. Physical examination: Gen: This is a 63-year-old male in no acute distress VS: reviewed HEENT: Head is atraumatic, normocephalic. Pupils equal, round. Sclerae is anicteric. NECK: Supple. No JVD. LUNGS: Clear to auscultation. No wheezes or rhonchi. No intercostal retractions. HEART: Regular rate and rhythm. 2/6 systolic ejection murmur. ABDOMEN: Soft No tenderness. EXTREMITIES: No pedal edema. No calf tenderness. NEUROLOGICAL: Patient is awake, alert and oriented x3. Assessment: Chest pain and dynamic EKG changes. Low abdominal pain rule out intestinal angina History of coronary artery disease with previous stenting Peripheral vascular disease Hypertension Hyperlipidemia Non-small cell lung cancer Tobacco use and dependence Plan: Continue patient on aspirin 81 mg daily, Plavix 75 mg daily, Ranexa 500 mg every 12 hours Start patient on pravastatin 20 mg at bedtime and monitor symptoms Patient is not on a beta-jairo due to bradycardia Obtain echocardiogram and depending on EF, may consider adding Procardia for vasospasm Tobacco cessation. Patient will be provided the [place] quit line information at discharge. Nurse practitioner note has been reviewed, I agree with documented findings and plan of care. Patient was seen and examined. Objective - Vital Signs Vital signs: Vital Signs Temp 97.8 F 01/29/24 04:00 Pulse 64 01/29/24 04:00 Resp 16 01/29/24 04:00 BP 130/67 01/29/24 04:00 Pulse Ox 96 01/29/24 04:00 FiO2 Intake & Output 01/28/24 01/29/24 01/29/24 18:59 06:59 18:59 Intake Total 1240 360 Balance 1240 360 Weight 59.7 kg Intake: IV 700 Intake, IV Titration 360 Amount Sodium Chloride 0.9% 1, 360 000 ml In Empty Bag 1 bag @ 1 ML/KG/HR 58.2 mls/hr IV .[id number] [facility] Rx#: [id number] Oral 540 Other: Voiding Method Toilet Toilet # Voids 2 - Labs CBC & Chem 7: 01/29/24 06:19 01/29/24 06:19 Labs: Abnormal Lab Results - Last 24 Hours (Table) 01/29/24 01/29/24 Range/Units 06:19 06:19 MCV 100.1 H (80.0-100.0) fL Sodium 136 L (137-145) mmol/L Total Protein 6.1 L (6.3-8.2) g/dL Microbiology - Last 24 Hours (Table) 01/23/24 01:40 Blood Culture - Final Blood 01/23/24 01:30 Blood Culture - Final Blood 01/24/24 17:28 Stool Culture - Final Stool
--- NOTE | 2024-01-29 15:41 | P.PN ---
Subjective Progress Note Date: 01/29/24 Principal diagnosis: Abd pain, enteritis, ST elevation. On Tx with chemo/IO In f/u pt is sitting in chair, dressed, ate all of his lunch, has not acute c/o. Has discovered that his abd pain is r/t intestional gas. If he releases the gas he has no pain, if he does not, he will have severe abd pain/cramping. Denies chest pain, N, SOB. Objective - Vital Signs Vital signs: Vital Signs Temp 97.9 F 01/29/24 08:00 Pulse 67 01/29/24 08:00 Resp 16 01/29/24 08:00 BP 128/74 01/29/24 08:00 Pulse Ox 98 01/29/24 08:00 FiO2 Intake & Output 01/28/24 01/29/24 01/29/24 18:59 06:59 18:59 Intake Total 1240 360 720 Balance 1240 360 720 Weight 59.7 kg 59.7 kg Intake: IV 700 Intake, IV Titration 360 Amount Sodium Chloride 0.9% 1, 360 000 ml In Empty Bag 1 bag @ 1 ML/KG/HR 58.2 mls/hr IV .[id number] [facility] Rx#: [id number] Oral 540 720 Other: Voiding Method Toilet Toilet Toilet # Voids 2 - Constitutional General appearance: Present: average body habitus, cooperative, no acute distress - EENT Eyes: Present: anicteric sclerae, EOMI ENT: Present: hearing grossly normal - Respiratory Respiratory: bilateral: CTA - Cardiovascular Rhythm: regular Heart sounds: normal: S1, S2 Abnormal Heart Sounds: Absent: systolic murmur, diastolic murmur, rub, S3 Gallop, S4 Gallop, click, other - Peripheral edema leg Peripheral Edema: bilateral: None - Gastrointestinal General gastrointestinal: Present: normal bowel sounds, soft - Integumentary Integumentary: Present: normal - Neurologic Neurologic: Present: CNII-XII intact - Musculoskeletal Musculoskeletal: Present: strength equal bilaterally - Psychiatric Psychiatric: Present: A&O x's 3, appropriate affect, intact judgment & insight - Labs CBC & Chem 7: 01/29/24 06:19 01/29/24 06:19 Labs: Abnormal Lab Results - Last 24 Hours (Table) 01/29/24 01/29/24 Range/Units 06:19 06:19 MCV 100.1 H (80.0-100.0) fL Sodium 136 L (137-145) mmol/L Total Protein 6.1 L (6.3-8.2) g/dL Microbiology - Last 24 Hours (Table) 01/23/24 01:40 Blood Culture - Final Blood 01/23/24 01:30 Blood Culture - Final Blood - Imaging and Cardiology ECHO report reviewed-LVEF 50-55%, grade 1 diastolic dysfunction Assessment and Plan (1) ST elevation myocardial infarction (STEMI) Current Visit: Yes Status: Acute Priority: Medium Code(s): I21.3 - ST ELEVATION (STEMI) MYOCARDIAL INFARCTION OF UNS SITE SNOMED Code(s): 01415581 (2) Abdominal pain Current Visit: Yes Status: Acute Priority: High Code(s): R10.9 - UNSPECIFIED ABDOMINAL PAIN SNOMED Code(s): 81322811 (3) Gastroenteritis Current Visit: Yes Status: Acute Priority: High Code(s): K52.9 - NONINFECTIVE GASTROENTERITIS AND COLITIS, UNSPECIFIED SNOMED Code(s): 12860227 (4) Squamous cell carcinoma lung Current Visit: Yes Status: Acute Priority: Medium Code(s): C34.90 - MALIGNANT NEOPLASM OF [facility] PART OF [facility] BRONCHUS OR LUNG SNOMED Code(s): 571848107 Plan: ST elevation -Cardiology has seen and treated pt. Pt will cont to follow as directed -Angiogram and now s/p PTCA. Transmitter Tester noted/reported: CAD-99% distal RCA, 20-30% mid LAD stenosis. Transient anterior ST elevations likely related to vasospasm. Aggressive risk factor modification. Continue dual antiplatelets for minimum of 6 months. Possible repeat angiography in 6-8 weeks. Gasteroenteritis, abd pain -Workup for mesenteric ischemia was negative. -Not suspecting related to IO coloitis as symptoms only exist when pt has gas -Surgery has seen and examined pt, no endoscopy planned at this time. Pt is tolerating regular diet NSCLC -On treatment with chemo/IO -Has tolerated rather well so far -F/u with primary Oncologist is tomorrow morning. Pt encouraged to keep appt-he said he will if he is out of the hospital -Based on Oncologist assessment and review of current admit, treatment will likely resume in the near future
--- NOTE | 2024-01-29 15:50 | P.PN ---
Subjective Progress Note Date: 01/29/24 63-year-old male patient, known history of COPD and non small cell lung cancer, who was admitted to the hospital because of pain across his lower abdomen over the past 2 months. He did encounter also some nausea and emesis. He reported also some small episodes of diarrhea after eating. No bright red blood per rectum. No melanotic stool. The patient has also known history of coronary disease and previous coronary stents and he is maintained on Plavix. Based on that, the patient came into the hospital. White cell count at 9.3 with hemoglobin 16 and electrolytes are all within normal with a serum bicarb of 25 and a BUN of 15 and a creatinine of 0.8. LFTs are within normal limits. Amylase and lipase are nonelevated. UA was negative. Viral screen was negative. CAT scan of the abdomen and pelvis was done and it showed no acute intra-abdominal or pelvic process. There is a filling defect in the right posterior urinary bladder wall that needs to be further investigated. He has stable lytic osseous metastases involving the lumbar spine and an area of consolidation in the right lung base that was noted on previous CAT scan imaging. In terms of his lung cancer, the patient is known to have metastatic stage IV squamous cell carcinoma. The patient was diagnosed back in 2021 and at that time he had a large right hilar mass extending to the right lower lobe measuring 8.1 cm in size in addition to mediastinal and hilar lymphadenopathy and a cavitating lesion in the left upper lobe measuring around 2.8 cm in size. He was metastatic from the time of his diagnosis and the patient also had metastatic lesions to his lumbar spine and the patient received radiation therapy to his L3/L5 spine. Following that, the patient was started on a combination of Opdivo/Yervoy and he has been followed up since with repeated CAT scan imaging. He did have a favorable response and his disease has been essentially stable while being on immunotherapy. He is also known to have COPD maintained on Trelegy Ellipta on outpatient basis. He is known to have a chronic stable right-sided pleural effusion and based on my review of the CAT scan images, the findings are essentially unchanged. He also has a previous history of pulmonary embolism that was thought to be malignancy induced. He had a filling defect in his right lower lobe pulmonary artery branch and based on that the patient has been anticoagulated with Eliquis. He is also known to have coronary artery disease with previous stenting of the RCA x 3 maintained on Plavix followed up by cardiology. 01/24/2024: The patient continues Vague Abdominal Discomfort. Diarrhea Is Improving. No Shortness of Breath. No Chest Pain. Remains on Room Air Oxygen with a White Cell Count of 6.8 with a Hemoglobin of 13.3 and a Platelet Count of 231. Electrolytes Are All within Normal Limits. LFTs Are Normal. Viral Screen Has Been Negative. Legionella Urine Antigen Has Been Negative. Blood Cultures Been Negative. The patient is seen today January 29, 2024 in follow-up on the selective care unit. He is currently sitting up in bed. Awake and alert in no acute distress. He is maintaining good O2 saturation in the upper 90s on room air. He has been afebrile. Hemodynamically stable. Echocardiogram revealed normal left v entricular size and systolic function. He did undergo PTCA of the distal RCA yesterday. Count 6.7. Hemoglobin 14.5. Platelets 242. Sodium 136. Potassium 4.3. Bicarb 27. BUN 13. Creatinine 0.96. Glucose 80. Heparin drip was discontinued. NicoDerm patch in place. Objective - Vital Signs Vital signs: Vital Signs Temp 97.9 F 01/29/24 08:00 Pulse 67 01/29/24 08:00 Resp 16 01/29/24 08:00 BP 128/74 01/29/24 08:00 Pulse Ox 98 01/29/24 08:00 FiO2 Intake & Output 01/28/24 01/29/24 01/29/24 18:59 06:59 18:59 Intake Total 1240 360 720 Balance 1240 360 720 Weight 59.7 kg 59.7 kg Intake: IV 700 Intake, IV Titration 360 Amount Sodium Chloride 0.9% 1, 360 000 ml In Empty Bag 1 bag @ 1 ML/KG/HR 58.2 mls/hr IV .[id number] [facility] Rx#: [id number] Oral 540 720 Other: Voiding Method Toilet Toilet Toilet # Voids 2 - Exam GENERAL EXAM: Alert, pleasant 63-year-old male, on room air, comfortable in no apparent distress. HEAD: Normocephalic. EYES: Normal reaction of pupils, equal size. NOSE: Clear with pink turbinates. THROAT: No erythema or exudates. NECK: No masses, no JVD. CHEST: No chest wall deformity. LUNGS: Equal air entry with no crackles, wheeze, rhonchi or dullness. CVS: S1 and S2 normal with no audible murmur, regular rhythm. ABDOMEN: No hepatosplenomegaly, normal bowel sounds, no guarding or rigidity. SPINE: No scoliosis or deformity SKIN: No rashes CENTRAL NERVOUS SYSTEM: No focal deficits, tone is normal in all 4 extremities. EXTREMITIES: There is no peripheral edema. No clubbing, no cyanosis. Peripheral pulses are intact. - Labs CBC & Chem 7: 01/29/24 06:19 01/29/24 06:19 Labs: Abnormal Lab Results - Last 24 Hours (Table) 01/29/24 01/29/24 Range/Units 06:19 06:19 MCV 100.1 H (80.0-100.0) fL Sodium 136 L (137-145) mmol/L Total Protein 6.1 L (6.3-8.2) g/dL Microbiology - Last 24 Hours (Table) 01/23/24 01:40 Blood Culture - Final Blood 01/23/24 01:30 Blood Culture - Final Blood Assessment and Plan Assessment: Abdominal pain, diarrhea with some nausea and emesis, currently under investigation. CAT scan of the abdomen and pelvis showing some thickening of the small bowel, nonspecific enteritis that needs to be further followed by general surgery. No significant leukocytosis. No hemodynamic instability. No signs of any dehydration. Rule out immunotherapy related diarrhea as the patient is on Opdivo/yervoy Stage IV squamous cell carcinoma of the lung currently on immunotherapy receiving a combination of Opdivo/Yervoy Coronary artery disease with previous STEMI, status post stenting of the RCA x 3. PTCA of the RCA on 01/28/2024 Chronic stable right-sided pleural effusion Chronic soft tissue density in the right infrahilar region, likely a residual disease versus scar from previous lung cancer treatment Lumbar spine metastases status post radiation therapy involving L3/L5 Previous history of pulm embolism maintained on anticoagulation with Pradaxa. Subsequent CAT scan of the chest showing no evidence of any PE and the patient has been successfully treated for a filling defect in the right lower lobe pulmonary artery branch Smoker Chronic back pain Hypertension Hyperlipidemia Peripheral vascular disease Previous history of TIA Plan: The patient was seen and evaluated Echocardiogram, labs and medications reviewed Stable and on room air Home once cleared by cardiology I have personally seen and examined the patient, performed the documentation and the assessment and plan as written. Number of minutes spent on the visit: 10 Dictation was produced using [employer] dictation software. Please excuse any grammatical, word or spelling errors.
--- NOTE | 2024-01-29 17:11 | P.PN ---
Subjective Progress Note Date: 01/29/24 Rubén Young is a 63-year-old male patient who presented with complaints of abdominal pain and cramping patient reports nausea and vomiting that has increased over the past few days. Patient has a past medical history of stage IV lung cancer, COPD, CVA, hyperlipidemia, [place], osteoarthritis, PE and ongoing nicotine dependence. CT of abdomen and pelvis completed showing airspace consolidation of the right lung base concerning for pneumonia small right para pneumonic effusion wall thickening of small bowel concerning for enteritis. Lab work revealing white blood cell 9.3, hemoglobin 16.1. UA negative. Influenza RSV and COVID-19 negative. Creatinine 0.86 bun 15. At this time patient was started on azithromycin and Rocephin for pneumonia. Two-view chest x-ray has been ordered. Will consult surgical, pulmonary and oncology services. At this time patient reports improvement with abdominal pain. Patient denies any chest pain or shortness of breath. Patient denies nausea vomiting or diarrhea. Patient denies any urinary burning or frequency On 01/24/2024 patient is alert and oriented x 3. Diet has been advanced to regular per surgical services. Urology services consulted due to concerns of bladder abnormality and outpatient plans for cystoscopy. I will at this time patient denies chest pain or shortness of breath. Patient denies nausea vomiting or diarrhea. Patient denies any urinary burning or frequency. Current vital signs temp 97.9, heart rate 78, respiratory rate 16, blood pressure 111/66 with pulse ox of 98% on room air On 01/25/2024 patient was seen and examined on the medical floor he is alert and oriented x 3 in no apparent distress he is still complaining of episodes of severe pain in the abdomen otherwise he denies any complaints there is no fever or chills no headache or dizziness no chest pain no shortness of breath no cough no nausea or vomiting no abdominal pain no diarrhea no blood in the stools he has some discomfort with urination no frequency or urgency and no hematuria On 01/26/2024 patient is alert and oriented x 3. Patient evaluated by multiple consults no further inpatient workup. Plans for outpatient cystoscopy. Patient to follow-up with PCP and consulting providers for further management patient will be DC'd on Bentyl. patient denies chest pain or shortness breath. denies nausea vomiting diarrhea. On 01/27/2024, patient was seen and examined on the medical floor, he is alert and oriented x 3 in no apparent distress, he is still having episodes of severe abdominal pain, otherwise he denies any complaints, there is no fever or chills no headache or dizziness no chest pain no shortness of breath no cough no nausea or vomiting, no diarrhea no blood in the stools no burning with urination no frequency or urgency and no hematuria. Plan is for discharge yesterday, however general surgery raised the possibility of ischemic bowel disease, patient was seen by cardiology and underwent mesenteric angiogram, which failed to reveal any evidence of mesenteric vascular obstruction. Postprocedure patient had a complaint of double vision that lasted several hours, CT scan of the brain was done without contrast and revealed no evidence of intracranial bleed, neurology consultation was requested for evaluation of double vision, patient stated that he woke up this morning and he did not have double vision. On 01/28/2024 patient is alert and oriented x 3. This morning patient had episode of chest pain bradycardia. Okay EKG was obtained showing ST elevation. Cardiology was consulted and patient was started on a heparin drip. Plans for cardiac catheterization this morning. Repeat EKG ST elevation was resolved by cardiology services. Neurology surgical rehab and cardiology services following. At this time patient denies chest pain or shortness of breath. Patient denies nausea vomiting or diarrhea. Patient denies any urinary burning or frequency. Current vital signs temp temp 97.6, heart rate 60, respiratory rate 18, blood pressure 146/68 with a pulse ox of 99% on room air. On 01/29/2024 patient was seen and examined on the medical floor he is alert and oriented x 3 in no apparent distress there is no fever or chills no headache or dizziness no chest pain no shortness of breath no cough no nausea or vomiting no abdominal pain no diarrhea and no urinary symptoms. Patient underwent cardiac catheterization and angioplasty yesterday, we are awaiting cardiology clearance for discharge to home Objective - Vital Signs Vital signs: Vital Signs Temp 98.0 F 01/29/24 12:00 Pulse 68 01/29/24 14:00 Resp 16 01/29/24 14:00 BP 114/70 01/29/24 12:00 Pulse Ox 100 01/29/24 12:00 FiO2 Intake & Output 01/28/24 01/29/24 01/29/24 18:59 06:59 18:59 Intake Total 1240 360 720 Balance 1240 360 720 Weight 59.7 kg 59.7 kg Intake: IV 700 Intake, IV Titration 360 Amount Sodium Chloride 0.9% 1, 360 000 ml In Empty Bag 1 bag @ 1 ML/KG/HR 58.2 mls/hr IV .[id number] REPLACED BY [facility] Rx#: [id number] Oral 540 720 Other: Voiding Method Toilet Toilet Toilet # Voids 2 - Exam Head normocephalic Neck supple Lungs clear to auscultation bilaterally no wheezing or crackles Heart regular rate and rhythm S1-S2, no rub or gallop Abdomen is soft nontender nondistended positive bowel sounds no hepatosplenomegaly Extremities no edema Neuro alert and orientated to 3 - Labs CBC & Chem 7: 01/29/24 06:19 01/29/24 06:19 Labs: Abnormal Lab Results - Last 24 Hours (Table) 01/29/24 01/29/24 Range/Units 06:19 06:19 MCV 100.1 H (80.0-100.0) fL Sodium 136 L (137-145) mmol/L Total Protein 6.1 L (6.3-8.2) g/dL Microbiology - Last 24 Hours (Table) 01/23/24 01:40 Blood Culture - Final Blood 01/23/24 01:30 Blood Culture - Final Blood Assessment and Plan Assessment: 1. Abdominal pain with nausea and vomiting secondary to possible enteritis 2. Pneumonia. Per pulmonary services no clinical suspicion for pneumonia 3. History of stage IV lung cancer 4. History of pulmonary embolism maintained on Pradaxa 5. History of coronary artery disease with previous cardiac stents 6. History of emphysema 7. History of TIA 8. Ongoing nicotine dependence 9. Chest pain with EKG changes plans for cardiac catheterization today 01/28/2024 patient started on IV heparin DVT prophylaxis Pradaxa. GI prophylaxis Pepcid Repeat two-view chest x-ray has been ordered Surgical, pulmonary and oncology services consulted Patient has been started on IV antibiotics Repeat labs ordered
[2024-01-29] MEDS: PRAVASTATIN SODIUM 20 MG TAB PO SCH (21:15)
--- NOTE | 2024-01-30 09:55 | P.DS ---
Providers Date of admission: 01/29/24 09:18 Expected date of discharge: 01/30/24 Attending physician: Jorge Alberto Garibay Consults: 01/23/24 00:57 Consult Physician Routine Consulting Provider: Bhargav Copeland Consult Reason/Comments: Demond Do you want consulting provider notified?: Yes 01/23/24 08:22 Consult Physician Routine Consulting Provider: Luis Hogan Consult Reason/Comments: pneumonia, lung Ca Do you want consulting provider notified?: Yes 01/23/24 08:23 Consult Physician Routine Consulting Provider: Pierce Wood Consult Reason/Comments: established patient lung ca Do you want consulting provider notified?: Yes 01/24/24 10:42 Consult Physician Routine Consulting Provider: Evgeny Marie Consult Reason/Comments: known, bladder abnormality Do you want consulting provider notified?: Yes 01/25/24 10:20 Consult Physician Routine Consulting Provider: Ignacio Vargas Consult Reason/Comments: gastrenteritis Do you want consulting provider notified?: Yes 01/26/24 10:11 Consult Physician Routine Consulting Provider: Jamal Zuluaga Consult Reason/Comments: CAD, r/o intestinal angina Do you want consulting provider notified?: Yes 01/26/24 20:24 Consult Physician Routine Consulting Provider: Sofy Kee Consult Reason/Comments: Double Vision Do you want consulting provider notified?: Yes, Notify in am 01/28/24 14:49 Consult Physician Routine Consulting Provider: [facility] Consult Reason/Comments: Post Interventional Patient Do you want consulting provider notified?: Already Contacted Primary care physician: Jorge Alberto Garibay [facility] Course: Discharge diagnosis 1. Abdominal pain with nausea and vomiting secondary to possible enteritis 2. Pneumonia. Per pulmonary services no clinical suspicion for pneumonia 3. History of stage IV lung cancer 4. History of pulmonary embolism maintained on Pradaxa 5. History of coronary artery disease with previous cardiac stents 6. History of emphysema 7. History of TIA 8. Ongoing nicotine dependence 9. Chest pain with EKG changes plans for cardiac catheterization today 01/28/2024 patient started on IV heparin. Status post stent to the RCA on 01/09 Hospital course Rubén Young is a 63-year-old male patient who presented with complaints of abdominal pain and cramping patient reports nausea and vomiting that has i ncreased over the past few days. Patient has a past medical history of stage IV lung cancer, COPD, CVA, hyperlipidemia, [place], osteoarthritis, PE and ongoing nicotine dependence. CT of abdomen and pelvis completed showing airspace consolidation of the right lung base concerning for pneumonia small right para pneumonic effusion wall thickening of small bowel concerning for enteritis. Lab work revealing white blood cell 9.3, hemoglobin 16.1. UA negative. Influenza RSV and COVID-19 negative. Creatinine 0.86 bun 15. At this time patient was started on azithromycin and Rocephin for pneumonia. Two-view chest x-ray has been ordered. Will consult surgical, pulmonary and oncology services. At this time patient reports improvement with abdominal pain. Patient denies any chest pain or shortness of breath. Patient denies nausea vomiting or diarrhea. Patient denies any urinary burning or frequency On 01/24/2024 patient is alert and oriented x 3. Diet has been advanced to regular per surgical services. Urology services consulted due to concerns of bladder abnormality and outpatient plans for cystoscopy. I will at this time patient denies chest pain or shortness of breath. Patient denies nausea vomiting or diarrhea. Patient denies any urinary burning or frequency. Current vital signs temp 97.9, heart rate 78, respiratory rate 16, blood pressure 111/66 with pulse ox of 98% on room air On 01/25/2024 patient was seen and examined on the medical floor he is alert and oriented x 3 in no apparent distress he is still complaining of episodes of severe pain in the abdomen otherwise he denies any complaints there is no fever or chills no headache or dizziness no chest pain no shortness of breath no cough no nausea or vomiting no abdominal pain no diarrhea no blood in the stools he has some discomfort with urination no frequency or urgency and no hematuria On 01/26/2024 patient is alert and oriented x 3. Patient evaluated by multiple consults no further inpatient workup. Plans for outpatient cystoscopy. Patient to follow-up with PCP and consulting providers for further management patient will be DC'd on Bentyl. patient denies chest pain or shortness breath. denies nausea vomiting diarrhea. On 01/27/2024, patient was seen and examined on the medical floor, he is alert and oriented x 3 in no apparent distress, he is still having episodes of severe abdominal pain, otherwise he denies any complaints, there is no fever or chills no headache or dizziness no chest pain no shortness of breath no cough no nausea or vomiting, no diarrhea no blood in the stools no burning with urination no frequency or urgency and no hematuria. Plan is for discharge yesterday, however general surgery raised the possibility of ischemic bowel disease, patient was seen by cardiology and underwent mesenteric angiogram, which failed to reveal any evidence of mesenteric vascular obstruction. Postprocedure patient had a complaint of double vision that lasted several hours, CT scan of the brain was done without contrast and revealed no evidence of intracranial bleed, neurology consultation was requested for evaluation of double vision, patient stated that he woke up this morning and he did not have double vision. On 01/28/2024 patient is alert and oriented x 3. This morning patient had episode of chest pain bradycardia. Okay EKG was obtained showing ST elevation. Cardiology was consulted and patient was started on a heparin drip. Plans for cardiac catheterization this morning. Repeat EKG ST elevation was resolved by cardiology services. Neurology surgical rehab and cardiology services following. At this time patient denies chest pain or shortness of breath. Patient denies nausea vomiting or diarrhea. Patient denies any urinary burning or frequency. Current vital signs temp temp 97.6, heart rate 60, respiratory rate 18, blood pressure 146/68 with a pulse ox of 99% on room air. On 01/29/2024 patient was seen and examined on the medical floor he is alert and oriented x 3 in no apparent distress there is no fever or chills no headache or dizziness no chest pain no shortness of breath no cough no nausea or vomiting no abdominal pain no diarrhea and no urinary symptoms. Patient underwent cardiac catheterization and angioplasty yesterday, we are awaiting cardiology clearance for discharge to home On 1020 05/30/2023 patient is alert and oriented x 3. Did discuss case with cardiology nurse practitioner patient is cleared for discharge continue aspirin Plavix Ranexa and pravastatin patient to follow-up outpatient for further management. At this time patient denies chest pain or shortness of breath. Patient denies nausea vomiting or diarrhea. Patient denies any urinary burning or frequency Patient Condition at Discharge: Stable Plan - Discharge Summary New Discharge Prescriptions: New Ranolazine [Ranexa] 500 mg PO Q12HR 30 Days #60 tab Dicyclomine [Bentyl] 10 mg PO QID 7 Days #28 cap cefUROXime axetiL [Ceftin] 500 mg PO BID 7 Days #14 tab Aspirin 81 mg PO DAILY 30 Days #30 tab Pravastatin Sodium [Pravachol] 20 mg PO HS 30 Days #30 tab Continue Clopidogrel [Plavix] 75 mg PO DAILY Co Q-10 100 mg PO DAILY Ergocalciferol [Vitamin D2 (1250 Mcg = 00614 Iu)] 1,250 mcg PO WE Omeprazole 20 mg PO DAILY@0630 Nitroglycerin Sl Tabs [Nitrostat] 0.4 mg SL Q5M PRN PRN Reason: Chest Pain Nicotine 21Mg/24Hr Patch [Habitrol] 1 patch TRANSDERM DAILY Dabigatran Etexilate Mesylate [Dabigatran Etexilate] 150 mg PO BID Discontinued Dicyclomine [Bentyl] 10 mg PO TID PRN 7 Days #21 capsule PRN Reason: Pain Isosorbide Mononitrate ER [Imdur] 30 mg PO DAILY Discharge Medication List Ergocalciferol [Vitamin D2 (1250 Mcg = 56314 Iu)] 1,250 mcg PO WE 04/30/21 [History] Clopidogrel [Plavix] 75 mg PO DAILY 05/15/23 [History] Nitroglycerin Sl Tabs [Nitrostat] 0.4 mg SL Q5M PRN 08/18/23 [History] Omeprazole 20 mg PO DAILY@0630 08/18/23 [History] Co Q-10 100 mg PO DAILY 01/23/24 [History] Dabigatran Etexilate Mesylate [Dabigatran Etexilate] 150 mg PO BID 01/23/24 [History] Nicotine 21Mg/24Hr Patch [Habitrol] 1 patch TRANSDERM DAILY 01/23/24 [History] Dicyclomine [Bentyl] 10 mg PO QID 7 Days #28 cap 01/26/24 [Rx] cefUROXime axetiL [Ceftin] 500 mg PO BID 7 Days #14 tab 01/26/24 [Rx] Aspirin 81 mg PO DAILY 30 Days #30 tab 01/30/24 [Rx] Pravastatin Sodium [Pravachol] 20 mg PO HS 30 Days #30 tab 01/30/24 [Rx] Ranolazine [Ranexa] 500 mg PO Q12HR 30 Days #60 tab 01/30/24 [Rx] Follow up Appointment(s)/Referral(s): Rowena Porras MD [STAFF PHYSICIAN] - 01/30/24 8:00 am Evgeny Marie MD [STAFF PHYSICIAN] - 02/01/24 8:20 am (patient should have an appointment to see Dr. Marie in 1 week for cystoscopy. Please confirm) Jorge Alberto Garibay MD [Primary Care Provider] - 02/01/24 10:00 am Jamal Zuluaga DO [STAFF PHYSICIAN] - 1 Week Activity/Diet/Wound Care/Special Instructions: activity as tolerated Diet heart healthy Discharge Disposition: HOME SELF-CARE
[2024-01-30 10:22] VITALS: BP 129/61; PULSE 70; TEMP 97.7
--- NOTE | 2024-01-30 12:42 | P.PN ---
Subjective Progress Note Date: 01/30/24 This is a 63-year-old male patient of Dr. Mcfarland with past medical history of coronary artery disease status post angioplasty, peripheral vascular disease, hypertension, dyslipidemia, non-small cell lung cancer, tobacco use and dependence. We have been asked to evaluate the patient for abdominal angina. Patient states that he has had ongoing pain in the lower abdomen on and off and is better after he burps or passes gas. He states he has also had weight loss. Symptoms have been going on for the past 2 months. He continues to be a smoker. Blood pressure 145/83, heart rate 74, pulse ox 99% on room air. Chest x-ray: Right lower lobe and perihilar consolidation with small effusion correlate for pneumonia versus heart failure CT of the abdomen pelvis revealed no evidence of acute abdominal/pelvic process. Filling defect along the urinary bladder. Underlying neoplasm not excluded. 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 Laboratory studies: WBC 7.1, hemoglobin 14.9. BUN 10 creatinine 1.11. Influenza testing, COVID and RSV not detected. Home cardiac medications: Cardiac catheterization performed 05/19/2023 status post stent of the proximal RCA, x 2, PTCA of the ostial PLB. Echocardiogram performed 01/20/2023 revealed normal EF, mild TR, mild MR. Lexiscan stress test performed 02/14/2020 revealed normal EF, normal study. 01/27/2024 Patient underwent peripheral angiogram to look for any SMA or celiac artery stenosis. His peripheral angiogram did not show any significant obstructive disease. His right radial artery appears intact. Denies any chest pain chest p ressure. 01/28/2024 Cardiology was asked to evaluate the patient on emergent basis because of nicola rns of STEMI. Around midnight patient got up to use the restroom and when he went back to his bed he was having some substernal chest heaviness along with dizziness. His telemetry showed concerns of ST elevations in anteroseptal leads. For this nurse performed a twelve-lead ECG which showed ST elevations of 1 to 2 mm in lead V2 and V3. I evaluated the patient emergently. By the time of evaluating the patient, he was chest pain-free. We repeated an ECG and his ST elevations were resolved with normal ST segments. I performed a bedside echocardiogram which showed preserved LVEF with preserved anteroseptal wall motion. He does have mild inferior wall hypokinesia which is unchanged from prior exam. I asked obtain updated labs, CBC, CMP, magnesium, troponin levels Start aspirin, start IV heparin drip discontinue Pradaxa 01/28 Patient is seen and examined. Blood pressure 128/74, heart rate is in the 60s, heart rate 40s and 50s yesterday afternoon, pulse ox 98% on room air. Patient i s noted to have ST elevation on telemetry. He denies having any chest pain. Yesterday he was taken to the Physical Therapist with Dr. Zuluaga which found coronary artery disease with 99% distal RCA, 20 to 30% mid LAD stenosis status post PTCA with balloon to the RCA, transient anterior ST elevations likely related to vasospasms. Plan is for aggressive risk factor modification, continue dual antiplatelet for 6 months minimum, consider repeat angiography in 6 to 8 weeks and if recurrent knee joints are normal hyperplasi, consider brachytherapy echocardiogram is currently pending. May consider adding Procardia depending on patient's EF. Regarding statin, patient is not currently taking a statin as he states he has had trouble with neck spasms. He is willing to give it a try now. 01/29 Patient is seen and examined. Yesterday patient was started on Pravachol and he seemed to tolerate this with out difficulty. He not denies any neck spasms. Blood pressure 129/61, heart rate 70, pulse ox 99% on room air. Physical examination: Gen: This is a 63-year-old male in no acute distress VS: reviewed HEENT: Head is atraumatic, normocephalic. Pupils equal, round. Sclerae is anicteric. NECK: Supple. No JVD. LUNGS: Clear to auscultation. No wheezes or rhonchi. No intercostal retractions. HEART: Regular rate and rhythm. 2/6 systolic ejection murmur. ABDOMEN: Soft No tenderness. EXTREMITIES: No pedal edema. No calf tenderness. NEUROLOGICAL: Patient is awake, alert and oriented x3. Assessment: Chest pain and dynamic EKG changes. Low abdominal pain rule out intestinal angina History of coronary artery disease with previous stenting Peripheral vascular disease Hypertension Hyperlipidemia Non-small cell lung cancer Tobacco use and dependence Plan: Continue patient on aspirin 81 mg daily, Plavix 75 mg daily, Ranexa 500 mg every 12 hours Continue patient on pravastatin 20 mg at bedtime Patient is not on a beta-jairo due to bradycardia Tobacco cessation. Patient will be provided the [employer] [facility] quit line information at discharge. Patient is cleared for discharge from cardiology and may follow-up in the office in 1 to 2 weeks. Nurse practitioner note has been reviewed, I agree with documented findings and plan of care. Patient was seen and examined. Objective - Vital Signs Vital signs: Vital Signs Temp 98.0 F 01/30/24 04:28 Pulse 59 L 01/30/24 04:28 Resp 16 01/30/24 04:28 BP 142/70 01/30/24 04:28 Pulse Ox 98 01/30/24 04:28 FiO2 Intake & Output 01/29/24 01/30/24 01/30/24 18:59 06:59 18:59 Intake Total 960 10 480 Balance 960 10 480 Weight 59.7 kg 59.1 kg Intake: IV 10 Invasive Line 3 10 Oral 960 480 Other: Voiding Method Toilet Toilet # Voids 3 - Labs CBC & Chem 7: 01/29/24 06:19 01/29/24 06:19
--- NOTE | 2024-01-30 13:35 | P.PN ---
Subjective Progress Note Date: 01/30/24 CHIEF COMPLAINT: Abdominal pain HISTORY OF PRESENT ILLNESS: Patient reports feeling ready for discharge. He has no new complaints. He is tolerating diet. He had a small bowel movement. Patient again is reporting having lower suprapubic abdominal pain after urinating. Patient is scheduled to follow-up with urology outpatient. If febrile. PHYSICAL EXAM: VITAL SIGNS: Reviewed. GENERAL: Well-developed in no acute distress. ABDOMEN: Soft. Nondistended. Nontender NEUROLOGIC: Alert and oriented. Cranial nerves II through XII grossly intact. ASSESSMENT: 1. Lower abdominal pain after urinating. The repeat CAT scan no longer reported evidence of enteritis. 2. Diarrhea now resolved. likely related to immunotherapy medication 3. Stage IV lung cancer PLAN: -No surgical intervention planned -Recommend to follow-up with urology outpatient -Agree with discharge plan Physician [employer] Tester note has been reviewed by physician. Signing provider agrees with the documented findings, assessment, and plan of care. Objective - Vital Signs Vital signs: Vital Signs Temp 97.7 F 01/30/24 08:00 Pulse 70 01/30/24 08:00 Resp 16 01/30/24 08:00 BP 129/61 01/30/24 08:00 Pulse Ox 99 01/30/24 08:00 FiO2 Intake & Output 01/29/24 01/30/24 01/30/24 18:59 06:59 18:59 Intake Total 960 10 480 Balance 960 10 480 Weight 59.7 kg 59.1 kg Intake: IV 10 Invasive Line 3 10 Oral 960 480 Other: Voiding Method Toilet Toilet Toilet # Voids 3 0 # Bowel Movements 0 - Labs CBC & Chem 7: 01/29/24 06:19 01/29/24 06:19
--- NOTE | 2024-01-30 14:26 | P.PN ---
Subjective Progress Note Date: 01/30/24 Principal diagnosis: Abd pain, enteritis, ST elevation. On Tx with chemo/IO In f/u pt is doing well, no c/o, he had a small, soft stool yesterday. Denies chest pain, N, SOB. Objective - Vital Signs Vital signs: Vital Signs Temp 97.7 F 01/30/24 08:00 Pulse 70 01/30/24 08:00 Resp 16 01/30/24 08:00 BP 129/61 01/30/24 08:00 Pulse Ox 99 01/30/24 08:00 FiO2 Intake & Output 01/29/24 01/30/24 01/30/24 18:59 06:59 18:59 Intake Total 960 10 480 Balance 960 10 480 Weight 59.7 kg 59.1 kg Intake: IV 10 Invasive Line 3 10 Oral 960 480 Other: Voiding Method Toilet Toilet Toilet # Voids 3 0 # Bowel Movements 0 - Constitutional General appearance: Present: average body habitus, cooperative, no acute distress - EENT Eyes: Present: anicteric sclerae, EOMI ENT: Present: hearing grossly normal - Respiratory Details: resp even and unlabored - Cardiovascular Details: skin warm, well perfused - Peripheral edema leg Peripheral Edema: bilateral: None - Integumentary Integumentary: Present: normal - Neurologic Neurologic: Present: CNII-XII intact - Musculoskeletal Musculoskeletal: Present: strength equal bilaterally - Psychiatric Psychiatric: Present: A&O x's 3, appropriate affect, intact judgment & insight - Labs CBC & Chem 7: 01/29/24 06:19 01/29/24 06:19 Assessment and Plan (1) ST elevation myocardial infarction (STEMI) Status: Acute Priority: Medium Code(s): I21.3 - ST ELEVATION (STEMI) MYOCARDIAL INFARCTION OF [facility] SITE SNOMED Code(s): 67339667 (2) Abdominal pain Status: Acute Priority: High Code(s): R10.9 - UNSPECIFIED ABDOMINAL PAIN SNOMED Code(s): 69136236 (3) Gastroenteritis Status: Acute Priority: High Code(s): K52.9 - NONINFECTIVE GASTROENTERITIS AND COLITIS, UNSPECIFIED SNOMED Code(s): 35728328 (4) Squamous cell carcinoma lung Status: Acute Priority: Medium Code(s): C34.90 - MALIGNANT NEOPLASM OF UNSP PART OF UNSP BRONCHUS OR LUNG SNOMED Code(s): 645212631 Plan: ST elevation -Cardiology has seen and treated pt. Pt will cont to follow as directed, take medications as prescribed -Angiogram, s/p PTCA. [employer] noted/reported: CAD-99% distal RCA, 20-30% mid LAD stenosis. Transient anterior ST elevations likely related to vasospasm. Aggressive risk factor modification. Continue dual antiplatelets for minimum of 6 months. Possible repeat angiography in 6-8 weeks. Gasteroenteritis, abd pain -Workup for mesenteric ischemia was negative. -Not suspecting related to IO coloitis as symptoms only exist when pt has gas, diarrhea resolved without steroid intervention -Surgery has seen and examined pt, no endoscopy planned at this time. -Pt tolerating regular diet for 2 days at least NSCLC -On treatment with chemo/IO -Has tolerated rather well so far -Case discussed with Primary Oncologist-pt ok to proceed with next cycle of treatment tomorrow. Chemo RN will contact pt and let him know
== END 2024-01-30 12:03 | disposition home or self-care (01) | DRG 321 ==
LOC: EC 22:00 → 5NMEDONC 01-23 01:00 → 3SCARD 01-26 15:06 → OBSVTOIN 01-29 09:18
PROVIDERS: ADMIT Internal Medicine; ATTEND Internal Medicine
PROC: B4101ZZ Fluoroscopy of Abdominal Aorta using Low Osmolar Contrast (ICD-10-PCS; 2024-01-26)
PROC: B2111ZZ Fluoroscopy of Multiple Coronary Arteries using Low Osmolar Contrast (ICD-10-PCS; 2024-01-28)
PROC: 027034Z Dilation of Coronary Artery, One Artery with Drug-eluting Intraluminal Device, Percutaneous Approach (ICD-10-PCS; principal; 2024-01-28 11:00)
PROC: B240ZZ3 Ultrasonography of Single Coronary Artery, Intravascular (ICD-10-PCS; 2024-01-28 11:00)
DX: I21.19 ST elevation (STEMI) myocardial infarction involving other coronary artery of inferior wall (principal); J18.9 Pneumonia, unspecified organism; C34.90 Malignant neoplasm of unspecified part of unspecified bronchus or lung; C79.51 Secondary malignant neoplasm of bone; J91.8 Pleural effusion in other conditions classified elsewhere; K52.9 Noninfective gastroenteritis and colitis, unspecified; I10 Essential (primary) hypertension; E78.5 Hyperlipidemia, unspecified; G89.29 Other chronic pain; I73.9 Peripheral vascular disease, unspecified; Z86.73 Personal history of transient ischemic attack (TIA), and cerebral infarction without residual deficits; F17.210 Nicotine dependence, cigarettes, uncomplicated; M54.9 Dorsalgia, unspecified; I25.2 Old myocardial infarction; J43.9 Emphysema, unspecified; K57.30 Diverticulosis of large intestine without perforation or abscess without bleeding; N32.9 Bladder disorder, unspecified; Z79.01 Long term (current) use of anticoagulants; Z79.02 Long term (current) use of antithrombotics/antiplatelets; Z79.82 Long term (current) use of aspirin; Z79.899 Other long term (current) drug therapy; Z85.118 Personal history of other malignant neoplasm of bronchus and lung; Z86.711 Personal history of pulmonary embolism; Z92.3 Personal history of irradiation; Z71.6 Tobacco abuse counseling; T45.1X5A Adverse effect of antineoplastic and immunosuppressive drugs, initial encounter; X58.XXXA Exposure to other specified factors, initial encounter
CPT/HCPCS: 36200; 36415; 70450; 70496; 70498; 71046; 74176; 74177; 75625; 80053; 81003; 82150; 83605; 83630; 83690; 83735; 84100; 84484; 85025; 85730; 87040; 87045; 87046; 87324; 87449; 87636; 92920; 92978; 93306; 93454; 94640; 94760; 96361; 96365; 96366; 96368; 96375; 96376; 99285

== ENCOUNTER → 2024-03-05 | Day surgery (SDC) | payer MEDICARE, OTHER ==
[~2024-03-05] MED LIST changes: -ALPRAZolam 0.25 MG TAB PO PRN; -ALPRAZolam 0.5 MG TAB PO PRN; +DEXAMETHASONE SOD PHOSPHATE 4 MG/ML 1 ML VIAL IV ONE; +GLYCOPYRROLATE 0.2 MG/ML 2 ML VIAL ONE; +HYDROmorphone 0.5 MG/0.5 ML SYRINGE IVP PRN; +LIDOCAINE 1% (10MG/ML) FOR IV START INTRADERMA PRN; +LIDOCAINE 1% INJ 10MG/ML (20 ML MDV) ONE; +MIDAZOLAM 2 MG/2 ML VIAL IV PRN; +MIDAZOLAM 2 MG/2 ML VIAL ONE; -NITROGLYCERIN SL TABS 0.4 MG TAB SUBLINGUAL PRN; +PHENYLEPHRINE-0.9% NACL SYG 1,000 MCG/10 ML SYRINGE ONE; +PROPOFOL 10 MG/ML 20 ML VIAL IV ONE; +fentaNYL (PF) 50 MCG/ML 2 ML AMP IVP PRN; +fentaNYL (PF) 50 MCG/ML 2 ML AMP ONE
[2024-03-05] MEDS: LACTATED RINGERS 1,000 ML IV SCH (07:03)
[2024-03-05] MEDS: ONDANSETRON 4 MG/2 ML VIAL IVP ONE (07:06)
[2024-03-05 08:19] VITALS: TEMP 98.3
[2024-03-05 08:25] VITALS: RESP 16
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
--- NOTE | 2024-03-05 08:42 | P.OP ---
Date of Procedure: 03/05/24 Preoperative Diagnosis: Bladder mass Postoperative Diagnosis: Same Procedure(s) Performed: TURBT(medium) Implants: None Anesthesia: IKER Surgeon: Ra Christianson Estimated Blood Loss (ml): 10 Pathology: other (Bladder mass) Condition: stable Disposition: PACU Indications for Procedure: This is a 63-year-old male with history of a 2 cm bladder mass. Causing intermittent hematuria and pain. Of note patient had a recent cardiac stent and was evaluated by cardiology and was deemed unable to stop the Plavix at this time. Discussed with him the option of doing a TURBT while he is on Plavix. Aware of the risk which includes but not limited to bleeding, infection, bladder perforation. Discussed with him he is at a higher risk of bleeding given his current Plavix use. He understood all the risk and agreed to proceed Operative Findings: 2 cm mass along the right lateral wall of the bladder Description of Procedure: Patient brought the operating room, general anesthesia was induced. He was pre pped and draped in sterile fashion and placed in a dorsolithotomy position. Resectoscope fitted with a 25 [place] sheath was inserted per urethra and advanced into the bladder, of note patient had mild prostate enlargement but it was nonocclusive. Cystoscopy was performed which showed a 2 cm solitary papillary lesion along the right lateral wall. No additional lesions were identified within the bladder. Of note the lesion was away from the ureteral orifices. Using the bipolar resectoscope the tumor was resected down, area of resection was thoroughly fulgurated. All tumor specimen was irrigated out. Repeat cystoscopy showed no evidence of bleeding, injury to the ureteral orifice or evidence of bladder perforation. At this time the resectoscope was withdrawn and a 20 [place] Frost was placed with return of clear urine. The catheter was irrigated without difficulties. Patient was awakened from anesthesia and taken to recovery in stable condition
[2024-03-05 09:44] VITALS: BP 127/78; PULSE 73
== END ==
LOC: OR 06:12
PROVIDERS: ATTEND Urology
DX: C67.2 Malignant neoplasm of lateral wall of bladder (principal); J44.9 Chronic obstructive pulmonary disease, unspecified; E78.5 Hyperlipidemia, unspecified; M19.90 Unspecified osteoarthritis, unspecified site; I25.2 Old myocardial infarction; F17.210 Nicotine dependence, cigarettes, uncomplicated; Z86.718 Personal history of other venous thrombosis and embolism; Z86.73 Personal history of transient ischemic attack (TIA), and cerebral infarction without residual deficits; Z86.711 Personal history of pulmonary embolism; Z98.890 Other specified postprocedural states; Z79.899 Other long term (current) drug therapy; Z79.02 Long term (current) use of antithrombotics/antiplatelets; Z95.5 Presence of coronary angioplasty implant and graft
CPT/HCPCS: 88307; 52235; J2250; J0690; J2405; J2003; J3010; J2704; J2371; J1596

== ENCOUNTER → 2024-05-02 | Outpatient (CLI) | payer MEDICARE, OTHER ==
--- NOTE | 2024-05-02 09:59 | XR ---
EXAMINATION TYPE: XR chest 2V DATE OF EXAM: 05/02/2024 9:28 AM COMPARISON: Chest radiographs from 01/24/2024 CLINICAL INDICATION: Male, 63 years old with history of C34.31 LUNG CANCER; [facility] TECHNIQUE: XR chest 2V Frontal and lateral views of the chest. FINDINGS: Lungs/Pleura: There are middle lobe on lateral view may be collapse or there may be fluid in the fiss ure which is less pronounced compared to 01/24/2024. There remains interstitial prominence throughout the lungs There is no evidence of pleural effusion, focal consolidation, or pneumothorax. Pulmonary vascularity: Unremarkable. Heart/mediastinum: Cardiomediastinal silhouette is unremarkable. Musculoskeletal: No acute osseous pathology. IMPRESSION: Right middle lobe consolidation versus pleural effusion in the fissure seen on lateral similar to [facility], , 05/02/2024 9:56 AM
== END | disposition home or self-care (01) ==
LOC: RADXRMAIN 09:06
PROVIDERS: ATTEND Internal Medicine
DX: C34.31 Malignant neoplasm of lower lobe, right bronchus or lung (principal); J43.9 Emphysema, unspecified
CPT/HCPCS: 71046

== ENCOUNTER → 2024-05-08 | Outpatient (CLI) | payer MEDICARE, OTHER ==
[2024-05-08 12:13] LABS: African American GFR (CKD) >90 (>60 ml/min/1.73 sqM); Blood Urea Nitrogen 14 mg/dL (9-20); Non-African American GFR(CKD) 83 (>60 ml/min/1.73 sqM)
--- NOTE | 2024-05-08 15:00 | CT ---
EXAMINATION TYPE: CT ChestAbdPelvis w con DATE OF EXAM: 05/08/2024 COMPARISON: CT chest abdomen and pelvis dated 11/28/2023 CT abdomen dated 12/20/2023 HISTORY: LUNG ca F/U CT DLP: 539.3 mGycm Automated exposure control for dose reduction was used. CONTRAST: CT scan of the chest, abdomen and pelvis is performed with Oral Contrast and with IV Contrast, patien t injected with 100 mL of Isovue 300. FINDINGS: CT chest: There are moderate emphysematous changes with an upper lobe predominance. There is no significant interval change in the soft tissue density in the right hilar region encasing the lower lobe bronchi resulting in severe narrowing. There is no change in the small right pleural effusion. No change in the small spiculated 7.6 mm density in the left upper lobe. No change in the small groun dglass density in the right upper lobe. No new lung density is seen. There is no change in the 18 to 19 mm right hilar lymph node. There is no new mediastinal adenopathy. No focal osseous lesions are seen. CT abdomen and pelvis: Gallbladder is normal without distention, pericholecystic fluid, wall thickening or gallstone. There is no biliary ductal dilatation. There is no focal mass or organomegaly involving the liver, pancreas, spleen or adrenal glands.. There is no solid renal mass or hydronephrosis. There is no retroperitoneal adenopathy or hemorrhage in the caliber of the abdominal aorta is normal. The bowel loops are normal in caliber and there is no dilatation or obstruction. No inflammatory chester ges identified in the bowel wall and mesentery. There is no free intracranial air or fluid. There is no pelvic mass or adenopathy. There is no free fluid within the pelvis. There is no change in the lucent defects in L3 and L5. There are no pathological fractures. IMPRESSION: 1. No change in the right hilar mass, right hilar adenopathy and small right effusion. No new abnorma lities within the thorax. 2. No change in the lucencies involving L3 and L5 3. No acute changes within the abdomen or pelvis. [facility], Workstation: [facility], 05/08/2024 2:58 PM
== END | disposition home or self-care (01) ==
LOC: RADCTMAIN 10:58
PROVIDERS: ATTEND Internal Medicine
DX: C34.31 Malignant neoplasm of lower lobe, right bronchus or lung (principal); J43.9 Emphysema, unspecified; J90 Pleural effusion, not elsewhere classified; R91.8 Other nonspecific abnormal finding of lung field
CPT/HCPCS: 82565; 84520; 71260; 74177; 36415; Q9967

== ENCOUNTER 2024-06-24 14:25 | Emergency (ER) | payer MEDICARE, OTHER ==
[2024-06-24 15:12] VITALS: TEMP 98.1
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
[2024-06-24 16:52] LABS: Basophils % (A) 0 %; Eosinophils # (A) 0.2 k/uL (0-0.7); Eosinophils % (A) 2 %; HCT 40.9 % (39.0-53.0); HGB 13.2 gm/dL (13.0-17.5); Lymphocytes # (A) 1.1 k/uL (1.0-4.8); Lymphocytes % (A) 11 %; MCH 31.1 pg (25.0-35.0); MCHC 32.2 g/dL (31.0-37.0); MCV 96.7 fL (80.0-100.0); Mean Platelet Volume 8.5; Monocytes # (A) 0.7 k/uL (0-1.0); Monocytes % (A) 7 %; Neutrophils # (A) 8.1 k/uL (1.3-7.7); Neutrophils % (A) 79 %; Platelet Count 253 k/uL (150-450); RBC 4.23 m/uL (4.30-5.90); RDW 14.2 % (11.5-15.5); WBC 10.3 k/uL (3.8-10.6)
[2024-06-24 17:15] LABS: ALT 10 U/L (4-49); AST 24 U/L (17-59); African American GFR (CKD) >90 (>60 ml/min/1.73 sqM); Albumin 3.7 g/dL (3.5-5.0); Alkaline Phosphatase 82 U/L (38-126); Amylase 52 U/L (30-110); Anion Gap 10 mmol/L; Blood Urea Nitrogen 23 mg/dL (9-20); Calcium 8.7 mg/dL (8.4-10.2); Carbon Dioxide 25 mmol/L (22-30); Chloride 91 mmol/L (98-107); Glucose 95 mg/dL (74-99); Lipase 119 U/L (23-300); Non-African American GFR(CKD) >90 (>60 ml/min/1.73 sqM); Sodium 126 mmol/L (137-145); Total Bilirubin 1.5 mg/dL (0.2-1.3); Total Protein 6.6 g/dL (6.3-8.2)
--- NOTE | 2024-06-24 18:46 | CT ---
EXAMINATION TYPE: CT abdomen pelvis w con DATE OF EXAM: 06/24/2024 6:18 PM COMPARISON: CT abdomen pelvis most recent from 05/08/2024, 01/23/2024 CLINICAL INDICATION: Male, 63 years old with history of abdominal pain; abdominal pain, hx of lung ca TECHNIQUE: Axial CT abdomen pelvis w con;Sagittal and coronal reformats were created on a separate w orkstation. Contrast used:100ml mL of Isovue 300 with IV Contrast, (none if empty) Oral contrast used: without Oral Contrast (none if empty) CT DLP: 556 mGycm, Automated exposure control for dose reduction was used. FINDINGS: LOWER CHEST: Right lower lobe medial consolidation next to the pleural fusion. ABDOMEN LIVER: Unremarkable GALLBLADDER AND BILE DUCTS: Unremarkable. PANCREAS: Unremarkable. SPLEEN: Scattered calcified granulomas. ADRENAL GLANDS: Unremarkable. KIDNEYS AND URETERS: No evidence of hydronephrosis or renal calculus. The ureters are unremarkable. Simple appearing left renal cyst. PELVIS BLADDER: No evidence for wall thickening or mass given limitations of exam. REPRODUCTIVE: Unremarkable. ABDOMEN & PELVIS STOMACH AND BOWEL: No evidence of bowel obstruction. Moderate amount stool throughout the colon PERITONEUM/RETROPERITONEUM: No evidence of pneumoperitoneum or free fluid. VASCULATURE: Mild atherosclerotic calcifications are present throughout the abdominal aorta and its b ranches. No evidence of aortic aneurysm. MUSCULOSKELETAL: No acute osseous abnormalities, lucent lesion in the L3 vertebral body measuring 13 mm and in the L5 vertebral body measuring 25 mm these are not significantly changed from 01/23/2024 m oderate to severe degeneration changes L5-S1. Stable subtle wedging of T10 vertebral body compared to 05/08/2024. LYMPH NODES: No gross evidence for lymphadenopathy. SOFT TISSUE/ABDOMINAL WALL: Unremarkable IMPRESSION: 1. No evidence for acute process. 2. Moderate amount stool throughout the colon. 3. Trace right pleural effusion with associated consolidation. 4. Stable lucent lesion in L3 and L5 vertebral bodies. 5. No new or enlarging lymph nodes. [facility], , 06/24/2024 6:43 PM
[2024-06-24 21:13] VITALS: BP 128/78; PULSE 77; RESP 16
[2024-06-24] MEDS: SODIUM CHLORIDE 0.9% 1,000 ML IV SCH (21:29)
[2024-06-24] MEDS: ONDANSETRON 4 MG/2 ML VIAL IVP STA (21:53)
[2024-06-24] MEDS: ONDANSETRON 4 MG ODT STARTER PACK 2 TAB BTL PO STA (21:53)
[2024-06-24] MEDS: KETOROLAC 15 MG/ML 1 ML VIAL IVP STA (21:54)
== END 2024-06-24 22:53 | disposition home or self-care (01) ==
LOC: EC 14:25
DX: R10.30 Lower abdominal pain, unspecified (principal); R11.2 Nausea with vomiting, unspecified; E87.1 Hypo-osmolality and hyponatremia; Z85.038 Personal history of other malignant neoplasm of large intestine; Z85.51 Personal history of malignant neoplasm of bladder; F17.200 Nicotine dependence, unspecified, uncomplicated
CPT/HCPCS: 80053; 82150; 83690; 85025; 74177; 99284; 96374; 96361; 96375; J2405; J1885; S0119; Q9967; 36415

== ENCOUNTER 2024-09-29 07:32 | Observation (INO) | payer MEDICARE, OTHER ==
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
[2024-09-29] MEDS: SODIUM CHLORIDE 0.9% 1,000 ML IV ONE (08:23)
[2024-09-29] MEDS: HYDROmorphone 0.5 MG/0.5 ML SYRINGE IVP STA ×3 (08:23→09:49)
[2024-09-29] MEDS: ONDANSETRON 4 MG/2 ML VIAL IVP STA (08:24)
[2024-09-29 08:36] LABS: Basophils # (A) 0.08 10*3/uL (0.00-0.10); Basophils % (A) 0.7 %; Eosinophils # (A) 1.03 10*3/uL (0.04-0.35); Eosinophils % (A) 8.8 %; HCT 40.4 % (39.6-50.0); HGB 13.8 g/dL (13.0-17.0); Lymphocytes # (A) 1.75 10*3/uL (0.90-5.00); Lymphocytes % (A) 14.9 %; MCH 31.9 pg (27.0-32.0); MCHC 34.2 g/dL (32.0-37.0); MCV 93.5 fL (80.0-97.0); Monocytes % (A) 5.1 %; Neutrophils # (A) 8.24 10*3/uL (1.80-7.70); Neutrophils % (A) 69.9 %; Platelet Count 265 10*3/uL (140-440); RBC 4.32 10*6/uL (4.40-5.60); RDW 15.2 % (11.5-14.5); WBC 11.77 10*3/uL (4.50-10.00)
[2024-09-29] MEDS ORDERED: HYDROmorphone 0.5 MG/0.5 ML SYRINGE IVP PRN ×2 (08:43→11:12)
[2024-09-29 08:55] LABS: ALT 10 U/L (4-49); AST 30 U/L (17-59); African American GFR (CKD) >90 (>60 ml/min/1.73 sqM); Alkaline Phosphatase 76 U/L (38-126); Amylase 52 U/L (30-110); Anion Gap 9 mmol/L; Blood Urea Nitrogen 13 mg/dL (9-20); Calcium 9.2 mg/dL (8.4-10.2); Carbon Dioxide 23 mmol/L (22-30); Chloride 104 mmol/L (98-107); Glucose 121 mg/dL (74-99); Lipase 105 U/L (23-300); Non-African American GFR(CKD) >90 (>60 ml/min/1.73 sqM); Potassium 3.7 mmol/L (3.5-5.1); Sodium 136 mmol/L (137-145); Total Protein 6.9 g/dL (6.3-8.2)
--- NOTE | 2024-09-29 09:27 | CT ---
EXAMINATION TYPE: CT abdomen pelvis w con DATE OF EXAM: 09/29/2024 COMPARISON: 06/24/2024 CLINICAL INDICATION: Male, 64 years old with history of abdominal pain hx CA; PHH, abdominal pain, re cently diagnosed with a tumor on lower esophagus. TECHNIQUE: Performed without Oral Contrast and with IV Contrast, patient injected with 100 ml mL of Isovue 370. CT DLP: 546.[address] CTDI: mGy Automated exposure control for dose reduction was used. FINDINGS: There is a small right effusion which is increased compared to the prior study. There is a stable rig ht infrahilar mass with surrounding interstitial density. The left lung base is clear. The gallbladder is normal without distention, wall thickening, pericholecystic fluid or gallstones. T here is no biliary ductal dilatation. There is no focal mass or organomegaly involving the liver, pancreas, spleen or adrenal glands. There is no solid renal mass or hydronephrosis and there is homogeneous contrast enhancement of the r enal parenchyma. The caliber the abdominal aorta is normal is no retroperitoneal adenopathy or hemorr mahad. The bowel loops are normal in caliber and there is no evidence of dilatation or obstruction. No infla mmatory changes are identified in the bowel wall. There is stable edema at the root of the mesentery. There is no free intraperitoneal air or fluid. No pelvic mass, free fluid, abscess or adenopathy. There is mild prostatic hypertrophy. There are stable lucent lesions involving L3 and L5. There are no pathologic fractures. IMPRESSION: 1. Small but increased right pleural effusion and right infrahilar mass with surrounding interstitial density. 2. No bowel obstruction or inflammation. There is stable edema in the mesentery. 3. Mild prostatic hypertrophy 4. Stable lucent lesions of L3 and L5 with no pathologic fracture. [facility], , 09/29/2024 9:25 AM
[2024-09-29] MEDS ORDERED: ONDANSETRON 4 MG/2 ML VIAL IVP PRN (11:12)
[2024-09-29] MEDS ORDERED: NALOXONE 0.4 MG/ML 1 ML VIAL IV PRN (11:12)
[2024-09-29] MEDS: SODIUM CHLORIDE 0.9% 1,000 ML IV SCH (11:57)
[2024-09-29 11:59] LABS: Appearance,Urine Clear (Clear); Bilirubin,Urine Negative (Negative); Blood,Urine Negative (Negative); Color,Urine Colorless; Glucose,Urine (UA) Negative (Negative); Ketones,Urine Trace (Negative); Leukocyte Esterase,Urine Negative (Negative); Nitrite,Urine Negative (Negative); Protein,Urine Negative (Negative); Urobilinogen,Urine <2.0 mg/dL (<2.0)
[2024-09-29] MEDS: HYDROmorphone 1 MG/ML 1 ML SYRINGE IVP PRN (13:45)
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
[2024-09-30 07:29] LABS: Prothrombin Time 10.9 sec (10.0-12.5)
[2024-09-30] MEDS: IV FLUID CONTINUATION 900 ML IV ONE ×2 (09:13→09:38)
[2024-09-30] MEDS ORDERED: PROPOFOL 10 MG/ML 20 ML VIAL IV ONE (09:16)
[2024-09-30] MEDS ORDERED: LIDOCAINE 1% INJ 10MG/ML (20 ML MDV) ONE (09:16)
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
--- NOTE | 2024-09-30 09:44 | P.PCN ---
Date of Procedure: 09/30/24 Preoperative Diagnosis: Rule out esophageal mass Postoperative Diagnosis: Normal EGD Procedure(s) Performed: EGD Anesthesia: MAC Surgeon: Gerardo Walls Pathology: none sent Condition: stable Disposition: floor Indications for Procedure: 64-year-old male with history of stage IV Non-Small Cell Lung Cancer presenting with abdominal pain and occasional dysphagia. CT scan showed a mass posterior to the esophagus. Plan for EGD for evaluation for possible esophageal mass. Risks, benefits and alternatives were provided to the patient. All questions answered. Patient did receive Plavix 2 days ago. Operative Findings: Overall normal-appearing stomach and esophagus Description of Procedure: The patient was brought into the endoscopy suite and placed in left lateral decubitus position. Adequate sedation was achieved using conscious sedation. A bite-block was placed and an endoscope was placed in the oropharynx and advanced under endoscopic visualization. The endoscope was advanced through the esophagus into the stomach, through the gastric antrum and in through the pylorus. The third portion of duodenum was visualized. The endoscope was then slowly withdrawn. The first portion of duodenum was noted to be normal. The antrum was noted to be normal in appearance. The gastric body distended normally and the gastric folds appeared normal and flattened with insufflation. A retroflexed view of the fundus and GE junction revealed no significant hiatal hernia. GE junction appeared normal. The esophagus appeared endoscopically normal with no obvious masses and no extrinsic compression. Excess air was removed and the scope was withdrawn and the procedure was completed. The patient was sent to PACU in stable condition.
[2024-09-30 10:16] LABS: Basophils # (A) 0.08 X 10*3/uL (0.00-0.10); Eosinophils # (A) 0.75 X 10*3/uL (0.04-0.35); Eosinophils % (A) 9.3 %; HCT 41.3 % (39.6-50.0); HGB 13.6 g/dL (13.0-17.0); Lymphocytes # (A) 1.75 X 10*3/uL (0.90-5.00); Lymphocytes % (A) 21.7 %; MCH 32.3 pg (27.0-32.0); MCHC 32.9 g/dL (32.0-37.0); MCV 98.1 FL (80.0-97.0); Mean Platelet Volume 10.7 FL (9.5-12.2); Monocytes # (A) 0.57 X 10*3/uL (0.20-1.00); Monocytes % (A) 7.1 %; NRBC Per 100 WBC 0 X 10*3/uL (0.00-0.01); Neutrophils # (A) 4.87 X 10*3/uL (1.80-7.70); Neutrophils % (A) 60.5 %; Platelet Count 247 X 10*3/uL (140-440); RBC 4.21 X 10*6/uL (4.40-5.60); RDW 15.6 % (11.5-14.5); WBC 8.05 X 10*3/uL (4.50-10.00)
[2024-09-30 10:33] LABS: BUN/Creat Ratio 10.22 Ratio (12.00-20.00); Blood Urea Nitrogen 9.2 mg/dL (9.0-27.0); Calcium 8.2 mg/dL (8.7-10.3); Carbon Dioxide 22.7 mmol/L (21.6-31.8); Chloride 105 mmol/L (96-109); Glucose 88 mg/dL (70-110); Potassium 4.1 mmol/L (3.5-5.5); Sodium 138 mmol/L (135-145)
--- NOTE | 2024-09-30 12:05 | FL ---
EXAMINATION TYPE: FL UGI w esophagus DATE OF EXAM: 09/30/2024 11:28 AM COMPARISON: Pet/CT, CT abdomen CLINICAL INDICATION:Male, 64 years old with history of Esophageal Mass; TECHNIQUE: The procedure was explained and patient history elicited. All patient questions were ans wered prior to start of procedure. A microarray analyst radiograph of the abdomen was also reviewed. Multiple flu oroscopic spot images of the esophagus, stomach and duodenum were obtained following ingestion of liq uid barium and EZ-gas crystals. DAP: Not reported [id number] FINDINGS: Upper GI examination: The microarray analyst abdominal radiograph demonstrates a normal bowel gas pattern without dilated loops of small or large bowel. There is no evidence for organomegaly or pneumoperitoneum. No abnormal calcificat ions. The visualized osseous structures are intact. The esophagus demonstrates normal primary and secondary peristalsis. The esophageal mucosa is smooth without evidence of focal stricture, ulceration, or abnormal outpouching. No gastroesophageal reflu x disease was identified. The stomach and duodenum demonstrate a normal course and contour. There is no evidence of focal sofia jasmeet or duodenal ulceration, stricture, or abnormal outpouching IMPRESSION: Normal upper gastrointestinal examination. Area of uptake on pet/CT is thought to be in adjacent lymp h node near the elisha [facility] Bisi Payton, , 09/30/2024 12:03 PM
[2024-09-30] MEDS: HYDROcodone/APAP 10-325MG 1 EACH TAB PO SCH (12:46)
--- NOTE | 2024-09-30 13:29 | P.PN ---
Subjective Progress Note Date: 09/30/24 No acute events overnight. Pt reporting pain has resolved. S/p EGD, no abnormal findings Objective - Vital Signs Vital signs: Vital Signs Temp 97.7 F 09/30/24 10:38 Pulse 53 L 09/30/24 07:50 Resp 19 09/30/24 07:50 BP 116/73 09/30/24 07:50 Pulse Ox 99 09/30/24 07:50 FiO2 Intake & Output 09/29/24 09/30/24 09/30/24 18:59 06:59 18:59 Intake Total 400 Balance 400 Weight 58.967 kg 58.967 kg Intake: IV 400 - Constitutional General appearance: Present: average body habitus, no acute distress - EENT Eyes: Present: anicteric sclerae, EOMI ENT: Present: hearing grossly normal - Respiratory Details: breathing is even and unlabored - Cardiovascular Details: skin warm and dry - Gastrointestinal General gastrointestinal: Present: soft. Absent: tenderness - Integumentary Integumentary: Absent: cyanotic, jaundiced - Neurologic Neurologic: Present: CNII-XII intact - Psychiatric Psychiatric: Present: A&O x's 3 - Labs CBC & Chem 7: 09/30/24 07:08 09/30/24 07:08 Labs: Abnormal Lab Results - Last 24 Hours (Table) 09/30/24 09/30/24 Range/Units 07:08 07:08 RBC 4.21 L (4.40-5.60) X 10*6/uL MCV 98.1 H (80.0-97.0) FL MCH 32.3 H (27.0-32.0) pg RDW 15.6 H (11.5-14.5) % Eosinophils # 0.75 H (0.04-0.35) X 10*3/uL BUN/Creatinine Ratio 10.22 L (12.00-20.00) Ratio Calcium 8.2 L (8.7-10.3) mg/dL Assessment and Plan (1) Intractable abdominal pain Current Visit: Yes Status: Acute Code(s): R10.9 - UNSPECIFIED ABDOMINAL PAIN SNOMED Code(s): 06797549 (2) Squamous cell carcinoma lung Current Visit: Yes Status: Acute Priority: Medium Code(s): C34.90 - MALIGNANT NEOPLASM OF UNSP PART OF UNSP BRONCHUS OR LUNG SNOMED Code(s): 548564230 Plan: #Abdominal pain, esophageal mass - Presenting with increased abdominal pain - Unclear if finding on PET/CT is within the distal esophagus or outside of the distal esophagus - This could be consistent with a separate GE junction primary malignancy versus unusual presentation of disease progression from his primary lung cancer - S/p EGD, normal study - SBFTshowing normal upper GI examination, States area of uptake on PET CT is felt to be an adjacent lymph node near the elisha - Rad onc consulted to further evaluate PET CT FDG activity at distal esophageal area - Pain has since subsided #Metastatic non-small cell lung cancer - On Opdivo/Yervoy since January 2022 - Last received day 22 of cycle 23 of Opdivo alone on 09/25/2024
[2024-09-30] MEDS: CYANOCOBALAMIN 1,000 MCG/ML 1 ML VIAL SQ SCH (13:38)
[2024-09-30] MEDS: RANOLAZINE 500 MG TAB.ER.12H PO SCH (20:46)
[2024-10-01] MEDS: PANTOPRAZOLE 40 MG TABLET PO SCH (06:55)
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
[2024-10-01] MEDS: ISOSORBIDE MONONITRATE ER 30 MG TAB.ER.24H PO SCH (08:16)
[2024-10-01] MEDS: TAMSULOSIN 0.4 MG CAP.ER.24H PO SCH (08:16)
[2024-10-01] MEDS: ATORVASTATIN 40 MG TAB PO SCH (08:16)
[2024-10-01] MEDS: UBIDECARENONE 100 MG PO SCH (08:17)
[2024-10-01 08:20] LABS: Basophils # (A) 0.07 X 10*3/uL (0.00-0.10); Basophils % (A) 0.8 %; Eosinophils # (A) 0.93 X 10*3/uL (0.04-0.35); Eosinophils % (A) 10.6 %; HCT 38.3 % (39.6-50.0); HGB 12.7 g/dL (13.0-17.0); Lymphocytes # (A) 1.77 X 10*3/uL (0.90-5.00); Lymphocytes % (A) 20.1 %; MCH 32.2 pg (27.0-32.0); MCHC 33.2 g/dL (32.0-37.0); MCV 97.2 FL (80.0-97.0); Mean Platelet Volume 10.7 FL (9.5-12.2); Monocytes # (A) 0.72 X 10*3/uL (0.20-1.00); Monocytes % (A) 8.2 %; NRBC Per 100 WBC 0 X 10*3/uL (0.00-0.01); Neutrophils # (A) 5.28 X 10*3/uL (1.80-7.70); Neutrophils % (A) 60.1 %; Platelet Count 243 X 10*3/uL (140-440); RBC 3.94 X 10*6/uL (4.40-5.60); RDW 15.4 % (11.5-14.5); WBC 8.79 X 10*3/uL (4.50-10.00)
[2024-10-01 08:29] LABS: ALT 8 U/L (10-49); AST 20 U/L (14-35); Albumin 3.5 g/dL (3.8-4.9); Albumin/Globulin Ratio 1.67 Ratio (1.60-3.17); Alkaline Phosphatase 66 U/L (41-126); BUN/Creat Ratio 10.56 Ratio (12.00-20.00); Blood Urea Nitrogen 9.5 mg/dL (9.0-27.0); Calcium 8.4 mg/dL (8.7-10.3); Carbon Dioxide 24.3 mmol/L (21.6-31.8); Chloride 107 mmol/L (96-109); Globulin 2.1 g/dL (1.6-3.3); Glucose 94 mg/dL (70-110); Potassium 3.9 mmol/L (3.5-5.5); Sodium 139 mmol/L (135-145); Total Bilirubin 0.3 mg/dL (0.3-1.2); Total Protein 5.6 g/dL (6.2-8.2)
[2024-10-01 12:55] VITALS: BP 124/62; PULSE 61; RESP 18; TEMP 97.6
--- NOTE | 2024-10-01 13:07 | P.PN ---
Subjective Progress Note Date: 10/01/24 SURGICAL PROGRESS NOTE CHIEF COMPLAINT: History of stage IV non-small cell lung cancer HISTORY OF PRESENT ILLNESS: Patient status post EGD to rule out esophageal mass. EGD findings were normal. Patient tolerated breakfast. Denies any difficulty swallowing. Denies any nausea or vomiting. He does report epigastric abdominal pain which is improved since he came in. Upper GI was also normal. PHYSICAL EXAM: VITAL SIGNS: Reviewed. GENERAL: Well-developed in no acute distress. ABDOMEN: Soft. Nondistended. Mild epigastric tenderness NEUROLOGIC: Alert and oriented. Cranial nerves II through XII grossly intact. ASSESSMENT: 1. EGD with normal findings. No evidence of esophageal mass PLAN: - Continue regular diet - Continue to follow with oncology and rad onc services Physician Wood Grainer note has been reviewed by physician. Signing provider agrees with the documented findings, assessment, and plan of care. Attestation Patient seen and examined at bedside. Doing well. EGD findings discussed with the patient. Continue diet. Continue to follow with oncology. No plan for surgical intervention at this time. Gerardo Walls DO Objective - Vital Signs Vital signs: Vital Signs Temp 97.6 F 10/01/24 12:33 Pulse 61 10/01/24 12:33 Resp 18 10/01/24 12:33 BP 124/62 10/01/24 12:33 Pulse Ox 100 10/01/24 12:33 FiO2 Intake & Output 09/30/24 10/01/24 10/01/24 18:59 06:59 18:59 Intake Total 1730 300 Balance 1730 300 Weight 58.967 kg Intake: IV 400 Intake, IV Titration 750 Amount Sodium Chloride 0.9% 1, 750 000 ml @ 75 mls/hr IV . [id number] [facility] Rx#:[id number] Oral 580 300 Other: Voiding Method Toilet # Voids 2 - Labs CBC & Chem 7: 10/01/24 04:43 10/01/24 04:43 Labs: Abnormal Lab Results - Last 24 Hours (Table) 10/01/24 10/01/24 Range/Units 04:43 04:43 RBC 3.94 L (4.40-5.60) X 10*6/uL Hgb 12.7 L (13.0-17.0) g/dL Hct 38.3 L (39.6-50.0) % MCV 97.2 H (80.0-97.0) FL MCH 32.2 H (27.0-32.0) pg RDW 15.4 H (11.5-14.5) % Eosinophils # 0.93 H (0.04-0.35) X 10*3/uL BUN/Creatinine Ratio 10.56 L (12.00-20.00) Ratio Calcium 8.4 L (8.7-10.3) mg/dL ALT 8 L (10-49) U/L Total Protein 5.6 L (6.2-8.2) g/dL Albumin 3.5 L (3.8-4.9) g/dL
--- NOTE | 2024-10-01 13:11 | P.DS ---
Providers Date of admission: 09/29/24 11:49 Expected date of discharge: 10/01/24 Attending physician: Jorge Alberto Garibay Consults: 09/29/24 11:12 Consult Physician Urgent Consulting Provider: Pierce Wood Consult Reason/Comments: Lung cancer, esophageal mass Do you want consulting provider notified?: Yes Consult Physician Urgent Consulting Provider: Gerardo Walls Consult Reason/Comments: Established patient, abdominal pain Do you want consulting provider notified?: Yes 09/30/24 12:14 Consult Physician Routine Consulting Provider: Hadley Ledbetter Consult Reason/Comments: lung cancer, eval FDG activity noted at GE junction on PET CT Do you want consulting provider notified?: Yes Primary care physician: Jorge Alberto Garibay [facility] Course: Discharge diagnosis 1. Non-small cell lung cancer with metastatic disease 2. Distal esophageal abnormality on CT scan and PET scan awaiting EGD 3. Underlying history of hypertension 4. Underlying history of hyperlipidemia 5. Underlying history of degenerative disc disease with chronic back pain 6. Underlying history of coronary artery disease with history of [place] in the past 7. Underlying history of COPD 8. Previous history of CVA 9. Previous history of DVT with PE 10. Underlying history of continued tobacco abuse Hospital course Rubén Young, is a 64-year-old male who presented to [facility] emergency room with a chief complaint of abdominal pain He was evaluated in the emergency room vital examination on presentation revealed a temperature of 98 pulse 80 respiration 22 blood pressure 175/74 pulse ox 99% on room air Laboratory data revealed a white blood count of 11.77 hemoglobin 13.8 platelet count 275 BUN 13 creatinine 0.81 amylase 52 lipase 105 lactic acid 1.2 Testing in the emergency room revealed CT scan of the abdomen and pelvis revealed right pleural effusion right infrahilar mass with surrounding interstitial density no bowel obstruction or inflammation there is stable edema in the mesentery mild prostatic hypertrophy lucent lesion of L3 and L5 Patient was admitted to medical floor for further evaluation and treatment Past medical history is significant for history of non-small cell lung cancer diagnosed in 2021, with metastatic disease, distal esophageal abnormality on PET scan, patient will need an EGD to rule out esophageal cancer, underlying history of COPD, previous history of DVT, underlying history of coronary artery disease with previous myocardial infarction, underlying history of pulmonary embolism, underlying history of osteoarthritis, underlying history of hypertension, underlying history of hyperlipidemia, previous history of CVA, history of degenerative disc disease with history of back surgery, underlying history of continued tobacco abuse. On 10/01/2024 patient is alert and oriented x 3. Patient underwent EGD yesterday normal upper GI exam area of uptake on PET scan is thought to be adjacent lymph node near the elisha. Patient is eager to be DC'd home patient will follow with oncology services for further management. Patient denies chest pain or shortness of breath. Patient denies nausea vomiting or diarrhea. Patient denies any urinary burning or frequency Patient Condition at Discharge: Stable Plan - Discharge Summary Discharge Rx Participant: No New Discharge Prescriptions: Continue Clopidogrel [Plavix] 75 mg PO DAILY Rosuvastatin [Crestor] 20 mg PO DAILY Ubidecarenone [Coenzyme Q-10] 100 mg PO DAILY Ergocalciferol [Vitamin D2 (1250 Mcg = 06034 Iu)] 1,250 mcg PO WE Omeprazole 20 mg PO AC-BRKFST@0630 Dabigatran Etexilate Mesylate [Dabigatran Etexilate] 150 mg PO BID Isosorbide Mononitrate ER [Imdur] 30 mg PO DAILY Cyanocobalamin [Vitamin B-12 Injection] 1,000 mcg SQ MO HYDROcodone/APAP 10-325MG [Leonore 10-325] 1 tab PO Q4HR Ranolazine [Ranexa] 500 mg PO BID Tamsulosin [Flomax] 0.4 mg PO DAILY Discharge Medication List Ergocalciferol [Vitamin D2 (1250 Mcg = 73707 Iu)] 1,250 mcg PO WE 04/30/21 [History] Clopidogrel [Plavix] 75 mg PO DAILY 05/15/23 [History] Omeprazole 20 mg PO [id number]@0630 08/18/23 [History] Dabigatran Etexilate Mesylate [Dabigatran Etexilate] 150 mg PO BID 01/23/24 [History] Rosuvastatin [Crestor] 20 mg PO DAILY 03/01/24 [History] Isosorbide Mononitrate ER [Imdur] 30 mg PO DAILY 06/24/24 [History] Cyanocobalamin [Vitamin B-12 Injection] 1,000 mcg SQ MO 09/29/24 [History] HYDROcodone/APAP 10-325MG [Leonore 10-325] 1 tab PO Q4HR 09/29/24 [History] Ranolazine [Ranexa] 500 mg PO BID 09/29/24 [History] Tamsulosin [Flomax] 0.4 mg PO DAILY 09/29/24 [History] Ubidecarenone [Coenzyme Q-10] 100 mg PO DAILY 09/29/24 [History] Follow up Appointment(s)/Referral(s): Jorge Alberto Garibay MD [Primary Care Provider] - 1-2 days Patient Instructions/Handouts: Acute Abdominal Pain (DC) Discharge Disposition: HOME SELF-CARE
[2024-10-02] MEDS ORDERED: ERGOCALCIFEROL 1,250 MCG (50,000 IU) CAPSULE PO SCH (09:00)
== END 2024-10-01 14:20 | disposition home or self-care (01) ==
LOC: EC 07:32 → 5NMEDONC 11:49
PROVIDERS: ADMIT Internal Medicine; ATTEND Internal Medicine
DX: R10.13 Epigastric pain (principal); R13.10 Dysphagia, unspecified; C34.31 Malignant neoplasm of lower lobe, right bronchus or lung; K22.9 Disease of esophagus, unspecified; E78.5 Hyperlipidemia, unspecified; J43.9 Emphysema, unspecified; I25.10 Atherosclerotic heart disease of native coronary artery without angina pectoris; I10 Essential (primary) hypertension; I25.2 Old myocardial infarction; F17.210 Nicotine dependence, cigarettes, uncomplicated; Z86.711 Personal history of pulmonary embolism; Z86.718 Personal history of other venous thrombosis and embolism; Z86.73 Personal history of transient ischemic attack (TIA), and cerebral infarction without residual deficits; Z95.5 Presence of coronary angioplasty implant and graft; Z79.02 Long term (current) use of antithrombotics/antiplatelets; Z79.899 Other long term (current) drug therapy
CPT/HCPCS: 96372; 96376 ×2; 96374; 96375; 99285; 36415; 93005; 80053 ×2; 80048; 82150; 83605; 83690; 84484; 85025 ×3; 85610; 81003; 74240; 74177; 43235; G0378 ×3; J3420; J2405; J2003; J1171 ×3; J2704; Q9967